=== PATIENT | male | born 1935 | race Caucasian/White ===

== ENCOUNTER → 2017-07-12 | Day surgery (SDC) | payer OTHER ==
[2017-07-09 13:41] VITALS: Ht 166.4 cm; Wt 100.0 kg
[~2017-07-12] VITALS: Ht 166.4 cm; Wt 100.0 kg
[~2017-07-12] MED LIST: 500ML BSSPLUS 0.5ML EPI1:1000 IRRIG ONE; ACETAMINOPHEN 325 MG TAB PO PRN; ASPI81TA28 PO; ATROPINE SULFATE 0.1 MG/ML 5ML SYR IV PRN; BSS FLUSH ONE; BUPIVACAINE HCL 0.75% 10 ML AMP/VIAL ONE; CALC0.5C2 PO; CEFAZOLIN SOD 1 GM VIAL ONE; CHOL2000 PO; DEXAMETHASONE SOD INJ 4 MG/ML VIAL ONE; DONE1TAB26 PO; EpHEDrine SULFATE INJ 50 MG/ML AMP IV PRN; EpINEphrine INJ 1MG/ML AMP 1 MG/ML AMP ONE; FENTANYL CITRATE INJ 50 MCG/1 ML 2 ML VIAL IV PRN; FENTANYL CITRATE INJ 50 MCG/1 ML 2 ML VIAL ONE; FRS/40 PO; HYALURONIDASE HUMAN 150 UNIT/ML INJ ONE; INDOCYANINE GREEN 25 MG/10 ML ONE; INSDGIPEN SC; ISOS60TA25 PO; LACTATED RINGER'S 1000ML 500 ML IV SCH; LEVO100T PO; LIDOCAINE HCL 2% 2 ML VIAL (20MG/ML) ONE; LISI20TA3 PO; METO50TA7 PO; NEOMYCIN/POLYMYX/DEXAMETH OP OINT PER APP CHARGE ONE; NVLG SC; OCUCOAT 1 ML SOLN IO ONE; ONDANSETRON INJ 2 MG/ML 2 ML VIAL IV PRN; PATIENT'S ALLERGY INFO NEEDS ENTERED SCH; PHENYLEPHRINE HCL 10% OP SOLN PER DROP CHARGE ONE; PHENYLEPHRINE HCL 2.5% OP SOLN PER DROP CHARGE OPL SCH; POVIDONE-IODINE OP SOLN (SURGERY CNTR CHARGING ONLY) ONE; PRIM50TA29 PO; PROPARACAINE 0.5% OP SOLN PER DROP CHARGE OPL SCH; PROPOFOL IV EMULSION 10 MG/ML 20 ML VIAL IV ONE; ROSU20TA PO; TIMOLOL MALEATE 0.5% OP SOLN PER DROP CHARGE ONE; TRIAMCINOLONE ACETONIDE OPHTH 40 MG/ML VIAL STERILE IO ONE; TROPICAMIDE 1% OP SOLN PER DROP CHARGE OPL SCH
[2017-07-12] MEDS: PHENYLEPHRINE HCL 2.5% OP SOLN PER DROP CHARGE OPL SCH ×2 (10:23→10:28)
[2017-07-12] MEDS: TROPICAMIDE 1% OP SOLN PER DROP CHARGE OPL SCH ×2 (10:24→10:29)
--- NOTE | 2017-07-12 10:41 | History & Physical Bridge - SC ---
H&P Re-Evaluation Bridge Note: Pt has a vitreous hemorrhage in the left eye and is having vitrectomy left eye. I have examined the patient, reviewed the History & Physical and in the interval since the performance of the History & Physical I have noted the following changes of clinical significance: No changes noted
--- NOTE | 2017-07-12 11:54 | [facility] Post Operative Brief Note ---
Immediate Operative Summary Operative Date Jul 12, 2017. Pre-Operative Diagnosis Left Eye Vitreous Hemorrhage Post-Operative Diagnosis same as preop Procedure(s) Performed Left Eye 23 Gauge Vitrectomy, Endolaser Surgeon Dr. Taylor Lining Repairer Surgeon(s) none Estimated Blood Loss None Findings Consistent with Post-Op Diagnosis Specimens none Anesthesia Type MAC
[2017-07-12 12:00] VITALS: TEMP 36.2
--- NOTE | 2017-07-12 12:00 | [facility] Operative Report ---
Operative Report Date of Service Jul 12, 2017. Operative Report PREOPERATIVE DIAGNOSIS: Vitreous hemorrhage, proliferative diabetic retinopathy , left eye. POSTOPERATIVE DIAGNOSIS: same. PROCEDURE: 1. Pars plana vitrectomy, 23 gauge. 2. Panretinal photocoagulation with endolaser. All to the left eye. CPT CODE: 04054 SURGEON: Calvin Taylor D.O. COMPLICATIONS: None. ESTIMATED BLOOD LOSS: None. SPECIMENS: None. ANESTHESIA: Retrobulbar block and MAC INDICATIONS FOR PROCEDURE: Surgery is indicated to decrease risk of vision loss and potentially improve vision. CONSENT: The risks, benefits and alternatives were discussed with the patient including but not limited to decreased visual acuity, failure to achieve desired results, loss of the eye, infection, pain, glaucoma, lens changes, retinal tears, retinal detachment, the need for more procedures, drooping of the eyelid, blindness, and double vision. The patient is aware of risks and consents to the surgery. Consent is signed and on the chart. OPERATION AND FINDINGS: The patient was brought to the operating room where the patient was identified by name, date, and medical record number. The surgical site was confirmed with the informed written consent. The patient was sedated by the anesthesiology team after which a 50:50 mixture of 2% lidocaine and 0.75% bupivacaine with hyaluronidase was administered in a standard retrobulbar fashion. A total of 4 ml was administered without difficulty. The patient was then prepped and draped in the usual sterile manner for retinal surgery. A wire lid speculum was placed and an Sudhir 23-gauge trocar cannula system was employed. The inferior temporal trocar cannula was first placed in an angled fashion 3.75mm posterior to the surgical limbus and the infusion cannula was inserted into this cannula after which the intravitreal position was verified prior to turning the infusion on. Two more trocar cannulas were then inserted in an angled fashion, one in the superior temporal, and one in the superior nasal quadrant both 3.75mm posterior to the surgical limbus. A light pipe and vitrector were then introduced into the eye and the BIOM wide angle viewing system was brought into place. Posterior inspection revealed a dense vitreous hemorrhage. This took a long time to clear but once it was mostly removed it was noted that there was neovascularization on the optic nerve and scattered diabetic retinopathy. Endolaser was used to perform morales retinal photocoagulation in the standard fashion and then intraocular cautery was used to cauterize the neovascularization from the optic nerve being careful not to damage the nerve itself. At this point scleral depression was performed for 360 degrees and no retinal tears or detachments were noted. The trocar cannulas were then removed and found to be water tight. The intraocular pressure was found to be within normal limits by palpation and subconjunctival injections of Kefzol and dexamethasone were administered inferiorly and superiorly. The wire lid speculum was removed. Maxitrol was applied to the surface of the eye. A light patch and shield were taped over the surface of the eye and the patient left the Operating Room in stable condition having tolerated the procedure well. DISPOSITION: The patient has an appointment the following morning in the Ophthalmology Clinic. The patient is to call immediately if there are any problems overnight. I attest to the content of the Intraoperative Record and any orders documented therein. Any exceptions are noted below.
--- NOTE | 2017-07-12 12:01 | Discharge Instructions-SurgCtr ---
Discharge Instructions Date of Service Jul 12, 2017. Visit Reason for Visit: Left Eye Vitreous Hemorrhage Discharge Discharge Diagnosis / Problem: same Discharge Goals Goal(s): Improve function Activity Recommendations Activity Limitations: per Instructions/Follow-up section Anesthesia . Post Anesthesia Instructions: If you have had General Anesthesia or IV Sedation: * Do not drive today. * Resume driving when surgeon permits. * Do not make important decisions or sign legal documents today. * Call surgeon for: 1. Temperature elevations greater than 101 degrees F. 2. Uncontrollable pain. 3. Excessive bleeding. 4. Persistent nausea and vomiting. 5. Medication intolerance (nausea, vomiting or rash). * For nausea and vomiting use only clear liquids such as: tea, soda, bouillon until nausea subsides, then gradually increase diet as tolerated. * If you have any concerns or questions, call your surgeon's office. If physician is unavailable and it is an emergency, call 911 or go to the nearest emergency room. . Instructions / Follow-Up Instructions / Follow-Up * May take Tylenol if needed for discomfort. * Do NOT remove eye shield. * NO straining, heavy lifting (>15 pounds) or bending below waist. * Avoid getting water or soap directly into operative eye. * Do NOT rub eye. If you experience increasing eye pain not relieved by medication, please contact us immediately at [phone]. If you are unable to reach someone at the above number, call [phone] and ask to speak with the EYE DOCTOR TICKET PULLER. Inform them that you are a Dr. Taylor patient who had recent surgery. Diet Recommendations Home Diet: resume previous diet Procedures Procedures Performed: Left Eye 23 Gauge Vitrectomy, Endolaser Pending Studies Studies pending at discharge: no Medical Emergencies . Who to Call and When: Medical Emergencies: If at any time you feel your situation is an emergency, please call 911 immediately. . Non-Emergent Contact Non-Emergency issues call your: Manager Sql . . "Provider Documentation" section prepared by Calvin Taylor. .
--- NOTE | 2017-07-12 12:18 | Anesthesia Progress Nt - [facility] ---
Anesthesia Post Op Note Date & Time Jul 12, 2017 at 12:18 Vital Signs Pain Intensity: 0 Vital Signs Past 12 Hours Date Time Temp Pulse Resp B/P (MAP) Pulse Ox O2 Delivery O2 Flow Rate FiO2 07/12/17 12:00 36.2 63 18 138/76 (96) 96 Room Air 07/12/17 10:13 36.3 75 24 163/82 (109) 95 Room Air Notes Mental Status: alert / awake / arousable, participated in evaluation Pt Amnestic to Procedure: Yes Nausea / Vomiting: adequately controlled Pain: adequately controlled Airway Patency, RR, SpO2: stable & adequate BP & HR: stable & adequate Hydration State: stable & adequate Anesthetic Complications: no major complications apparent
[2017-07-12 12:20] VITALS: BP 154/62; PULSE 75; O2SAT 95
== END | disposition home or self-care (01) ==
LOC: X.SURG 09:24
PROVIDERS: ATTEND Ophthalmology
DX: E11.3592 Type 2 diabetes mellitus with proliferative diabetic retinopathy without macular edema, left eye (principal); H43.12 Vitreous hemorrhage, left eye; I25.10 Atherosclerotic heart disease of native coronary artery without angina pectoris; I12.9 Hypertensive chronic kidney disease with stage 1 through stage 4 chronic kidney disease, or unspecified chronic kidney disease; N18.3 Chronic kidney disease, stage 3 (moderate); G47.33 Obstructive sleep apnea (adult) (pediatric); E11.9 Type 2 diabetes mellitus without complications; E03.9 Hypothyroidism, unspecified; E66.8 Other obesity; E78.5 Hyperlipidemia, unspecified; J44.9 Chronic obstructive pulmonary disease, unspecified; Z79.82 Long term (current) use of aspirin; Z99.81 Dependence on supplemental oxygen; Z87.891 Personal history of nicotine dependence; Z99.89 Dependence on other enabling machines and devices

== ENCOUNTER 2019-12-20 17:18 | Inpatient (IN) ==
--- OUTSIDE RECORDS SUMMARY | 2019-12-20 17:21 | External Medical Summary | Continuity of Care Document ---
:1935 Author Name Vernon Centeno, Provider Address Unavailable Unavailable , Care Team Providers Name Role Phone Unavailable Unavailable Unavailable SARAY MATTSON (HALLIE) Unavailable Unavailable Problems Active medical history not documented Allergies and Adverse Reactions No Known Drug Allergies (Allergy) Medications Lantus 100 UNIT/ML Subcutaneous Solution , M.D. Refills: 0 NovoLOG Mix 70/30 (70-30) 100 UNIT/ML Subcutaneous Suspensio n , M.D. Refills: 0 Glucophage TABS , M.D. Refills: 0 Crestor 10 MG Oral Tablet , M.D. Refills: 0 Synthroid 50 MCG Oral Tablet , M.D. Refills: 0 Metoprolol Tartrate 25 MG Oral Tablet , M.D. Refills: 0 hydroCHLOROthiazide 12.5 MG Oral Tablet , M.D. Refills: 0 Lisinopril 20 MG Oral Tablet , M.D. Refills: 0 Vitamin B-12 TABS , M.D. Refills: 0 Vitamin D3 25 MCG (1000 UT) Oral Capsule , M.D. Refills: 0 Fish Oil 1000 MG Oral Capsule , M.D. Refills: 0 Aspirin 81 MG TABS , M.D. Refills: 0 Advil 200 MG Oral Capsule , M.D. Refills: 0 Primidone 50 MG Oral Tablet , M.D. Refills: 0 Procedures Procedures not documented Immunizations Immunizations not documented Plan of Treatment Planned Observations Planned Goals not documented Results No Known Results Results not documented
[2019-12-20 17:43] LABS: Basophils # (auto) 0.01 K/uL (0-0.2); Basophils % (auto) 0.2 %; Eosinophils # (auto) 0.08 K/uL (0-0.5); Eosinophils % (auto) 1.3 %; Hematocrit (blood only) 47.4 % (42-52); Hemoglobin 15.9 g/dL (14.0-18.0); Immature Granulocytes # (auto) 0.01 K/uL (0.00-0.02); Immature Granulocytes % (auto) 0.2 %; Lymphocytes # (auto) 0.95 K/uL (1.2-3.4); Lymphocytes % (auto) 15.1 %; Mean Corpuscular Hemoglobin 32.8 pg (25-34); Mean Corpuscular Hgb Conc 33.5 g/dL (32-36); Mean Corpuscular Volume 97.7 fL (80-100); Mean Platelet Volume 11.8 fL (7.4-10.4); Monocytes # (auto) 0.57 K/uL (0.11-0.59); Monocytes % (auto) 9.1 %; Neutrophils # (auto) 4.67 K/uL (1.4-6.5); Neutrophils % (auto) 74.1 %; Nucleated RBC # (auto) 0.03 K/uL (0-0); Nucleated RBC % (auto) 0.5 %; Platelet Count 114 K/uL (130-400); RDW Coefficient of Variation 17.4 % (11.5-14.5); RDW Standard Deviation 60.5 fL (36.4-46.3); Red Blood Count 4.85 M/uL (4.7-6.1); White Blood Count 6.29 K/uL (4.8-10.8)
[2019-12-20 17:51] LABS: Albumin Level 2.9 gm/dl (3.4-5.0); BUN Creatinine Ratio 18.2 (10-20); Calcium 6.7 mg/dl (8.5-10.1); Creatinine Clr Calc Pharmacy 24.7 ml/min; Est GFR (African American) 27.6; Est GFR (Non-African American) 23.8; Magnesium 2.4 mg/dl (1.8-2.4); Potassium 4.4 mmol/L (3.5-5.1)
[2019-12-20 17:54] LABS: INR 1.2 (0.9-1.1); Prothrombin Time 12.1 Seconds (9.0-12.0)
[2019-12-20 18:02] LABS: Albumin Globulin Ratio 0.8 (0.9-2); Bilirubin,Total 0.6 mg/dl (0.2-1); Globulin 3.6 gm/dl (2.5-4.0); Total Protein 6.5 gm/dl (6.4-8.2); Troponin I 0.102 ng/ml (0-0.045)
--- NOTE | 2019-12-20 18:02 | Emergency Department Note ---
Impression & Plan Pulmonary edema, Edema, peripheral, Hypoxia ED Provider Note NAME: RAIN GARG AGE: 84 SEX: M : 1935 ARRIVES VIA: Ambulance INFORMANT: Patient, ED PROVIDER(S): Calvin Pardo DO CHIEF COMPLAINT: Shortness of breath. HPI: The patient is an 84-year-old male who presented to the emergency department by ambulance for an evaluation of shortness of breath. The patient has been noticing lower extremity swelling and weight gain. The patient has noticed significant shortness of breath especially over the last few weeks. He denies having any chest pain. He does complain of shortness of breath upon lying flat as well as exertion. The patient does have supplemental oxygen and normally has 3 L of nasal cannula. The patient increase his oxygen recently and his oxygen was also increased prior to arrival by prehospital personnel. He states this is somewhat improved his symptoms. The patient denies having any fevers but notes lower extremity erythema. He also has a wound dressing to his left lower extremity. The patient has not been seen by his primary care physician recently. ROS: See above HPI for pertinent positives & negatives. A total of 10 systems reviewed and were otherwise negative. PAST MEDICAL HISTORY: See Below PAST SURGICAL HISTORY: See Below FAMILY HISTORY: See Below SOCIAL HISTORY: See Below HOME MEDICATIONS: See Below ALLERGIES: See Below VITALS: See Below PHYSICAL EXAMINATION: GENERAL: Patient is awake alert in no acute distress patient is resting comfor tably and showing no signs of anxiety EYES: The conjunctivae are clear. The pupils are round and reactive. EARS, NOSE, MOUTH AND THROAT: The nose is without any evidence of any deformity. NECK: The neck is nontender and supple. RESPIRATORY: Shallow respirations were noted. Diminished breath sounds are noted throughout with rales in both upper lung flor. There was significant conversational dyspnea noted. CARDIOVASCULAR: Ectopy was noted to auscultation. There was no definite murmur. GASTROINTESTINAL: The abdomen is soft. Abdomen is nontender. MUSCULOSKELETAL/EXTREMITIES: There is no evidence of gross deformity full range of motion is noted in the hips and shoulders. SKIN: There is bilateral lower extremity edema noted. There is significant erythema and venous stasis changes noted. There is a small ulceration to the anterior lower leg. The wound dressing is in place. NEUROLOGIC: Patient is awake alert and oriented x3. MEDICAL DECISION MAKING: The patient is an 84-year-old male who presented to the emergency department for an evaluation of shortness of breath. The patient has a history of diabetes as well as volume overload. He normally wears oxygen and has had to increase his oxygen over the last few days because of shortness of breath. He has very significant lower extremity edema as well as low blood pressure. The patient was treated with supplemental oxygen. He was reevaluated multiple times. The patient was found to have low blood pressure so this along with an elevated creatinine precluded Lasix at this time and is oxygen saturation on supplemental oxygen was acceptable. I discussed his case with the on-call [facility]ist. They have agreed to evaluate the patient in the emergency department for further management and disposition. The patient may require further work-up to evaluate the cause of his shortness of breath but he was significantly improved. Triage Nursing notes reviewed. Prior medical records reviewed Vital Signs: reviewed and remarkable for hypoxia on room air. Differential diagnosis: Reactive airway disease, pneumonia, pneumothorax, COPD, CHF, infections, cardiac ischemia, pulmonary embolism, musculoskeletal, gastrointestinal, as well as other pathologies. ER treatment provided: See below Diagnostics interpreted by me: ECG: EKG was obtained in the emergency department. My interpretation is sinus rhythm at 81 bpm. There was a first-degree AV block noted. Frequent PVCs were noted. Right bundle branch block pattern was noted. Diffuse ST and T wave abnormalities were noted. No previous tracing was available for comparison. Cardiac Monitoring: An order was placed for continuous cardiac monitoring. The monitor shows a rate of 85 with sinus rhythm. Laboratory studies: As stated above and show below. Imaging studies: See below Consultation(s): 1924: I discussed this case with Dr. Payne who is on-call for the [facility] group. He will evaluate the patient in the emergency department for further management and disposition. Past Med/Surg History Medical History (Updated 12/20/19 @ 21:43 by Calvin Pardo DO) CHF (congestive heart failure) Hypothyroidism (acquired) Insulin dependent diabetes mellitus Social History Feels Safe at Home: Yes Smoking Status: Former smoker Allergies Allergies Allergy/AdvReac Type Severity Reaction Status Date / Time yellow dye Allergy Unknown RASH Verified 12/20/19 19:48 Home Meds Home Medications Medication Instructions Recorded Confirmed aspirin 81 mg PO QPM 12/20/19 12/20/19 calcitriol 0.5 mcg PO QAM 12/20/19 12/20/19 calcium carb-D3-mag ox-zinc ox 1 tab PO QAM 12/20/19 12/20/19 [Arslan Mag Zinc Plus D3] calcium carbonate-vitamin D3 2 cap PO QAM 12/20/19 12/20/19 [Calcium 600 with Vitamin D3] cholecalciferol (vitamin D3) 25 mcg PO QAM 12/20/19 12/20/19 [Vitamin D3] cyanocobalamin (vitamin B-12) 1,000 mcg PO QAM 12/20/19 12/20/19 [Vitamin B-12] donepezil 10 mg PO HS 12/20/19 12/20/19 furosemide 40 mg PO BID 12/20/19 12/20/19 insulin aspart U-100 [Novolog See Rx Instructions .ROUTE .COMPLEX 12/20/19 12/20/19 U-100 Insulin aspart] insulin glargine [Lantus U-100 8 unit SUBCUT 12/20/19 12/20/19 Insulin] isosorbide mononitrate 60 mg PO QPM 12/20/19 12/20/19 levothyroxine See Rx Instructions .ROUTE .COMPLEX 12/20/19 12/20/19 lisinopril 5 mg PO QPM 12/20/19 12/20/19 metoprolol succinate 25 mg PO HS 12/20/19 12/20/19 omega-3 fatty acids-fish oil [Fish 1 cap PO QAM 12/20/19 12/20/19 Oil] primidone 50 mg PO BID 12/20/19 12/20/19 rosuvastatin 20 mg PO HS 12/20/19 12/20/19 Results & Data (ED) Vital Signs Vital Signs - 24 hr 12/20/19 17:32 12/20/19 17:52 12/20/19 18:30 Temperature 37.1 C Temperature Source Oral Pulse Rate 83 75 Pulse Rate [Right Finger] Pulse Rate from SpO2 Sensor 60 Pulse Rhythm [Right Finger] Pulse Strength [Right Finger] Respiratory Rate 23 21 Respiratory Effort / Characteristics Non-Labored Spontaneous Short of Breath Respiratory Depth Normal Respiratory Pattern Regular Blood Pressure 121/72 98/65 L Blood Pressure [Right Arm] Blood Pressure Mean 88 84 Blood Pressure Mean [Right Arm] Blood Pressure Position Sitting Pulse Oximetry 94 95 100 Oxygen Delivery Method Nasal Cannula Nasal Cannula Oxygen Flow Rate 5 5 Sepsis Recent Fever Within 48 Hours No Sepsis New/Unexplained Change in Mental Status No Sepsis Action Taken by Nursing No Action Required 12/20/19 19:00 12/20/19 19:01 12/20/19 19:09 Temperature Temperature Source Pulse Rate 75 72 74 Pulse Rate [Right Finger] Pulse Rate from SpO2 Sensor Pulse Rhythm [Right Finger] Pulse Strength [Right Finger] Respiratory Rate 21 22 20 Respiratory Effort / Characteristics Respiratory Depth Respiratory Pattern Blood Pressure 91/55 L 108/66 Blood Pressure [Right Arm] Blood Pressure Mean 58 77 Blood Pressure Mean [Right Arm] Blood Pressure Position Pulse Oximetry Oxygen Delivery Method Oxygen Flow Rate Sepsis Recent Fever Within 48 Hours Sepsis New/Unexplained Change in Mental Status Sepsis Action Taken by Nursing 12/20/19 19:10 12/20/19 19:30 12/20/19 19:31 Temperature Temperature Source Pulse Rate 73 73 Pulse Rate [Right Finger] 73 Pulse Rate from SpO2 Sensor Pulse Rhythm [Right Finger] Irregular Pulse Strength [Right Finger] Normal Respiratory Rate 21 18 23 Respiratory Effort / Characteristics Respiratory Depth Respiratory Pattern Blood Pressure 100/68 Blood Pressure [Right Arm] 108/66 Blood Pressure Mean 75 Blood Pressure Mean [Right Arm] 80 Blood Pressure Position Pulse Oximetry 97 Oxygen Delivery Method Nasal Cannula Oxygen Flow Rate 4 Sepsis Recent Fever Within 48 Hours Sepsis New/Unexplained Change in Mental Status Sepsis Action Taken by Nursing 12/20/19 20:00 12/20/19 20:02 12/20/19 20:30 Temperature Temperature Source Pulse Rate 85 82 64 Pulse Rate [Right Finger] Pulse Rate from SpO2 Sensor Pulse Rhythm [Right Finger] Pulse Strength [Right Finger] Respiratory Rate 24 24 21 Respiratory Effort / Characteristics Respiratory Depth Respiratory Pattern Blood Pressure 155/84 H Blood Pressure [Right Arm] Blood Pressure Mean 115 Blood Pressure Mean [Right Arm] Blood Pressure Position Pulse Oximetry Oxygen Delivery Method Oxygen Flow Rate Sepsis Recent Fever Within 48 Hours Sepsis New/Unexplained Change in Mental Status Sepsis Action Taken by Nursing 12/20/19 20:31 12/20/19 20:32 12/20/19 21:00 Temperature Temperature Source Pulse Rate 70 70 74 Pulse Rate [Right Finger] Pulse Rate from SpO2 Sensor Pulse Rhythm [Right Finger] Pulse Strength [Right Finger] Respiratory Rate 21 21 23 Respiratory Effort / Characteristics Respiratory Depth Respiratory Pattern Blood Pressure 112/78 Blood Pressure [Right Arm] Blood Pressure Mean 87 Blood Pressure Mean [Right Arm] Blood Pressure Position Pulse Oximetry 92 Oxygen Delivery Method Oxygen Flow Rate Sepsis Recent Fever Within 48 Hours Sepsis New/Unexplained Change in Mental Status Sepsis Action Taken by Nursing 12/20/19 21:01 Temperature Temperature Source Pulse Rate 73 Pulse Rate [Right Finger] Pulse Rate from SpO2 Sensor 74 Pulse Rhythm [Right Finger] Pulse Strength [Right Finger] Respiratory Rate 22 Respiratory Effort / Characteristics Respiratory Depth Respiratory Pattern Blood Pressure 147/89 H Blood Pressure [Right Arm] Blood Pressure Mean 97 Blood Pressure Mean [Right Arm] Blood Pressure Position Pulse Oximetry 94 Oxygen Delivery Method Oxygen Flow Rate Sepsis Recent Fever Within 48 Hours Sepsis New/Unexplained Change in Mental Status Sepsis Action Taken by [facility] Medications Current Medication List: was personally reviewed by me Laboratory Data Attestation: I reviewed the patient's lab results. Result diagrams: 12/20/19 16:53 12/20/19 16:53 Lab Results 12/20/19 12/20/19 12/20/19 Range/Units 16:53 16:53 16:53 WBC 6.29 (4.8-10.8) K/uL RBC 4.85 (4.7-6.1) M/uL Hgb 15.9 (14.0-18.0) g/dL Hct 47.4 (42-52) % MCV 97.7 (80-100) fL MCH 32.8 (25-34) pg MCHC 33.5 (32-36) g/dL RDW Std Deviation 60.5 H (36.4-46.3) fL RDW Coeff of Ricky 17.4 H (11.5-14.5) % Plt Count 114 L (130-400) K/uL MPV 11.8 H (7.4-10.4) fL Immature Gran % (Auto) 0.2 % Neut % (Auto) 74.1 % Lymph % (Auto) 15.1 % [place] % (Auto) 9.1 % Eos % (Auto) 1.3 % Baso % (Auto) 0.2 % Neut # (Auto) 4.67 (1.4-6.5) K/uL Lymph # (Auto) 0.95 L (1.2-3.4) K/uL [place] # (Auto) 0.57 (0.11-0.59) K/uL Eos # (Auto) 0.08 (0-0.5) K/uL Baso # (Auto) 0.01 (0-0.2) K/uL Immature Gran # (Auto) 0.01 (0.00-0.02) K/uL Absolute Nucleated RBC 0.03 H (0-0) K/uL Nucleated RBC % (auto) 0.5 % PT 12.1 H (9.0-12.0) Seconds INR 1.2 H (0.9-1.1) APTT 29.0 (21.0-31.0) Seconds PTT Ratio 1.0 VBG pH (7.36-7.41) VBG pCO2 (38-50) mmHg VBG pO2 mmHg VBG HCO3 mmol/L VBG O2 Saturation % VBG Base Excess mEq/L Barometric Pressure mm/Hg Sodium 140 (136-145) mmol/L Potassium 4.4 (3.5-5.1) mmol/L Chloride 102 (98-107) mmol/L Carbon Dioxide 28 (21-32) mmol/L Anion Gap 10.0 (3-11) BUN 43 H (7-18) mg/dl Creatinine 2.38 H (0.6-1.4) mg/dl Est Cr Clr Drug Dosing 24.7 ml/min Est GFR ( Amer) 27.6 Est GFR (Non-Af Amer) 23.8 BUN/Creatinine Ratio 18.2 (10-20) Glucose 160 H (70-99) mg/dl Calcium 6.7 L (8.5-10.1) mg/dl Magnesium 2.4 (1.8-2.4) mg/dl Total Bilirubin 0.6 (0.2-1) mg/dl AST 37 (15-37) U/L ALT 23 (12-78) U/L Alkaline Phosphatase 95 (45-117) U/L Troponin I 0.102 H* (0-0.045) ng/ml NT-Pro-B Natriuret Pep 79653 H (0-1800) pg/ml Total Protein 6.5 (6.4-8.2) gm/dl Albumin 2.9 L (3.4-5.0) gm/dl Globulin 3.6 (2.5-4.0) gm/dl Albumin/Globulin Ratio 0.8 L (0.9-2) Urine Color Urine Appearance (Clear) Urine pH (4.5-7.5) Ur Specific Bowie (1.000-1.030) Urine Protein (Negative) Urine Glucose (UA) (Negative) Urine Ketones (Negative) Urine Blood (Negative) Urine Nitrite (Negative) Urine Bilirubin (Negative) Urine Urobilinogen (Negative) Ur Leukocyte Esterase (Negative) Urine WBC (Auto) (0-5) /hpf Urine RBC (Auto) (0-4) /hpf U Hyaline Cast (Auto) (0-5) /lpf U Epithel Cells (Auto) (0-5) /lpf Urine Bacteria (Auto) (Negative) 12/20/19 12/20/19 Range/Units 17:52 18:00 WBC (4.8-10.8) K/uL RBC (4.7-6.1) M/uL Hgb (14.0-18.0) g/dL Hct (42-52) % MCV (80-100) fL MCH (25-34) pg MCHC (32-36) g/dL RDW Std Deviation (36.4-46.3) fL RDW Coeff of Ricky (11.5-14.5) % Plt Count (130-400) K/uL MPV (7.4-10.4) fL Immature Gran % (Auto) % Neut % (Auto) % Lymph % (Auto) % [place] % (Auto) % Eos % (Auto) % Baso % (Auto) % Neut # (Auto) (1.4-6.5) K/uL Lymph # (Auto) (1.2-3.4) K/uL [place] # (Auto) (0.11-0.59) K/uL Eos # (Auto) (0-0.5) K/uL Baso # (Auto) (0-0.2) K/uL Immature Gran # (Auto) (0.00-0.02) K/uL Absolute Nucleated RBC (0-0) K/uL Nucleated RBC % (auto) % PT (9.0-12.0) Seconds INR (0.9-1.1) APTT (21.0-31.0) Seconds PTT Ratio VBG pH 7.33 L (7.36-7.41) VBG pCO2 59 H (38-50) mmHg VBG pO2 20 mmHg VBG HCO3 31 mmol/L VBG O2 Saturation < 60.0 % VBG Base Excess 2.9 mEq/L Barometric Pressure 729.9 mm/Hg Sodium (136-145) mmol/L Potassium (3.5-5.1) mmol/L Chloride (98-107) mmol/L Carbon Dioxide (21-32) mmol/L Anion Gap (3-11) BUN (7-18) mg/dl Creatinine (0.6-1.4) mg/dl Est Cr Clr Drug Dosing ml/min Est GFR ( Amer) Est GFR (Non-Af Amer) BUN/Creatinine Ratio (10-20) Glucose (70-99) mg/dl Calcium (8.5-10.1) mg/dl Magnesium (1.8-2.4) mg/dl Total Bilirubin (0.2-1) mg/dl AST (15-37) U/L ALT (12-78) U/L Alkaline Phosphatase (45-117) U/L Troponin I (0-0.045) ng/ml NT-Pro-B Natriuret Pep (0-1800) pg/ml Total Protein (6.4-8.2) gm/dl Albumin (3.4-5.0) gm/dl Globulin (2.5-4.0) gm/dl Albumin/Globulin Ratio (0.9-2) Urine Color Yellow Urine Appearance Clear (Clear) Urine pH 5.0 (4.5-7.5) Ur Specific Bowie 1.017 (1.000-1.030) Urine Protein Trace H (Negative) Urine Glucose (UA) Negative (Negative) Urine Ketones Negative (Negative) Urine Blood Negative (Negative) Urine Nitrite Negative (Negative) Urine Bilirubin Negative (Negative) Urine Urobilinogen Negative (Negative) Ur Leukocyte Esterase Negative (Negative) Urine WBC (Auto) 1-5 (0-5) /hpf Urine RBC (Auto) 0-4 (0-4) /hpf U Hyaline Cast (Auto) 1-5 (0-5) /lpf U Epithel Cells (Auto) >30 H (0-5) /lpf Urine Bacteria (Auto) Negative (Negative) Imaging Data Radiologist's Impression: XR chest 1V portable HISTORY: 84 years-old Male Dyspnea acute shortness of breath COMPARISON: None TECHNIQUE: Portable AP view of the chest FINDINGS: Cardiac silhouette is enlarged. Pulmonary vascular congestion. Small bilateral pleural effusions with hazy bibasilar densities. Calcified plaque the thoracic aortic arch. No pneumothorax. There is a dense 1.8 cm nodular opacity projecting over the left upper lung. The patient is rotated towards the left. Degenerative changes of the shoulders and spine. IMPRESSION: 1. Cardiomegaly with pulmonary vascular congestion. 2. Small pleural effusions with bibasilar opacities suggestive of atelectasis. Pneumonitis could appear similarly. 3. 1.8 cm nodular opacity projects over the left upper lung. This is likely associated with the anterior left second rib and may reflect degenerative scler osis versus bone island. A calcified granuloma also considered. ACT 112: Negative or not required by law. The above report was generated using voice recognition software. It may contain grammatical, syntax or spelling errors. Electronically signed by: Andrew Peter M.D. 12/20/2019 7:21 PM Dictated: 12/20/191918 Transcribed: 12/20/191918 Blood Pressure Blood Pressure Findings: Normal blood pressure Discharge Plan Visit Data Chief Complaint: Shortness of Breath/Dyspnea Stated Complaint: SOB ED Provider: Calvin Pardo Discharge Problem: Pulmonary edema, Edema, peripheral, Hypoxia Patient Disposition: Being Evaluated by Hospitalist Condition: Good Forms Stand Alone Forms: My [facility] Prescriptions Prescriptions: No Action furosemide 40 mg tablet 40 mg PO BID RF: 0 primidone 50 mg tablet 50 mg PO BID RF: 0 donepezil 10 mg tablet 10 mg PO HS RF: 0 aspirin 81 mg Tablet,Delayed Release (Dr/Ec) 81 mg PO QPM RF: 0 isosorbide mononitrate 60 mg tablet extended release 24 hr 60 mg PO QPM RF: 0 calcitriol 0.5 mcg capsule 0.5 mcg PO QAM RF: 0 lisinopril 5 mg tablet 5 mg PO QPM RF: 0 metoprolol succinate 25 mg tablet extended release 24 hr 25 mg PO HS RF: 0 levothyroxine 112 mcg tablet See Rx Instructions .ROUTE .COMPLEX RF: 0 rosuvastatin 20 mg tablet 20 mg PO HS RF: 0 cyanocobalamin (vitamin B-12) [Vitamin B-12] 1,000 mcg Tablet 1,000 mcg PO QAM RF: 0 cholecalciferol (vitamin D3) [Vitamin D3] 25 mcg (1,000 unit) Capsule 25 mcg PO QAM RF: 0 omega-3 fatty acids-fish oil [Fish Oil] 360-1,200 mg Capsule 1 cap PO QAM RF: 0 calcium carbonate-vitamin D3 [Calcium 600 with Vitamin D3] 600 mg(1,500mg) - 500 unit Capsule 2 cap PO QAM RF: 0 Arslan Mag Zinc Plus D3 333 mg-133 unit -133 mg-5 mg Tablet 1 tab PO QAM RF: 0 Lantus U-100 Insulin 100 unit/mL solution 8 unit SUBCUT HS RF: 0 insulin aspart U-100 [Novolog U-100 Insulin aspart] 100 unit/mL solution See Rx Instructions .ROUTE .COMPLEX RF: 0 Referrals Referrals: Franky Bradley [Primary Care Provider] -
[2019-12-20 18:04] LABS: Base Excess VBG 2.9 mEq/L; HCO3 VBG 31 mmol/L; PCO2 VBG 59 mmHg (38-50); PO2 VBG 20 mmHg; pH VBG 7.33 (7.36-7.41)
[2019-12-20 18:05] LABS: Oxygen Saturation VBG < 60.0 %
[2019-12-20 18:18] LABS: Appearance Urine Clear (Clear); Bacteria Urine Automated Negative (Negative); Bilirubin Urine Negative (Negative); Blood Urine Negative (Negative); Color Urine Yellow; Epithelial Cell Urine Auto >30 /lpf (0-5); Glucose Urine UA Negative (Negative); Ketones Urine Negative (Negative); Leukocyte Esterase Urine Negative (Negative); Nitrite Urine Negative (Negative); Protein Urine Trace (Negative); RBC Urine Automated 0-4 /hpf (0-4); Specific Gravity Urine 1.017 (1.000-1.030); Urobilinogen Urine Negative (Negative)
--- NOTE | 2019-12-20 19:22 | XRay Report ---
XR chest 1V portable HISTORY: 84 years-old Male Dyspnea acute shortness of breath COMPARISON: None TECHNIQUE: Portable AP view of the chest FINDINGS: Cardiac silhouette is enlarged. Pulmonary vascular congestion. Small bilateral pleural effusions with hazy bibasilar densities. Calcified plaque the thoracic aortic arch. No pneumothorax. There is a den se 1.8 cm nodular opacity projecting over the left upper lung. The patient is rotated towards the lef t. Degenerative changes of the shoulders and spine. IMPRESSION: 1. Cardiomegaly with pulmonary vascular congestion. 2. Small pleural effusions with bibasilar opacities suggestive of atelectasis. Pneumonitis could appe ar similarly. 3. 1.8 cm nodular opacity projects over the left upper lung. This is likely associated with the anter ior left second rib and may reflect degenerative sclerosis versus bone island. A calcified granuloma also considered. ACT 112: Negative or not required by law. The above report was generated using voice recognition software. It may contain grammatical, syntax o r spelling errors. Electronically signed by: Andrew Peter M.D. 12/20/2019 7:21 PM
--- NOTE | 2019-12-20 21:15 | CT Scan Report ---
CT chest wo con CT DOSE: 576.48 mGy.cm CLINICAL HISTORY: 84 years-old Male with chf, left upper lung opacity. Acute shortness of breath wit h congestive heart failure TECHNIQUE: Multiaxial CT images of the chest were performed without contrast. A dose lowering techni que was utilized adhering to the principles of ALARA. COMPARISON: Chest radiograph of same day FINDINGS: Unremarkable thyroid. No adenopathy. Moderate cardiomegaly. Coronary artery calcifications. Extensive calcified plaque of the thoracic aorta and great vessels. Dilation of the pulmonary artery suggests pulmonary artery hypertension. Respiratory motion artifact limits the study. Trace left and moderate right pleural effusions. No pneumothorax. Pulmonary vascular congestion without overt pulmonary edema . Numerous noncalcified pulmonary nodules are present, most pronounced within the bilateral upper lob es measuring up to approximately 4 mm. Fissural nodule the right lung base measures 7 mm. Calcified g ranuloma of the medial right upper lobe. Consolidation and groundglass opacity dependent right lower lobe. Right diaphragmatic pleural calcifications. Central airways are patent. Small volume of abdominal ascites with mesenteric edema. Moderate diffuse body wall edema. Degenerati ve changes of the shoulders and spine. Previously questioned nodular opacity of the left upper lung l ikely correlates with overlying ribs. Demineralized appearance of the bones. 8 mm lucent focus involv es the T5 vertebral body. 10 mm lucent focus involves the T2 vertebral body. Ill-defined lucent lesio n involves the anterior cortex of the left anterior fifth rib. Additional smaller lucent foci are see n involving multiple vertebral bodies. IMPRESSION: 1. Cardiomegaly with pulmonary vascular congestion. 2. Fluid overload manifested by trace left and moderate right pleural effusions with small volume of abdominal ascites and anasarca. 3. Right lower lobe basilar consolidation suggests probable atelectasis. Pneumonia could appear simil irena. 4. Numerous bilateral solid pulmonary nodules measure up to 4 mm. Follow-up guidelines provided below . 5. Prior granulomatous disease. 6. There are several ill-defined lucent lesions involving the vertebral bodies with an additional raymond ent lesion noted involving the anterior left fifth rib. Correlation with skeletal survey radiographs recommended to evaluate for additional lesions. Primary differential considerations would include mul tiple lipoma versus lytic metastasis from unknown primary. Please refer to below summary of Fleischner criteria recommendations for follow-up of incidental CT n odules (Henrique Luevano, Guidelines for management of small pulmonary nodules detected on CT scans: A robbi tement from the Fleischner Society, Radiology 237: [phone].) SOLID NODULES Multiple nodules size: <6 mm * Low risk patients: no routine follow-up * high risk patients: optional CT at 12 months Note: newly detected indeterminate nodule in persons 35 years of age or older. * Low risk patients: minimal or absent history of smoking and/or other known risk factors * high risk patients: history of smoking or of other known risk factors (e.g. first degree relative with lung cancer, or exposure to asbestos, radon, uranium) * if a nodule up to 8 mm is partly solid or is ground glass further follow-up is required after [address] to exclude possible slow growing adenocarcinoma ([place]) ACT 112: Negative or not required by law. Electronically signed by: Andrew Peter M.D. 12/20/2019 9:14 PM
[2019-12-20] MEDS ORDERED: ONDANSETRON INJ 2 MG/ML 2 ML VIAL IV PRN (22:45)
[2019-12-20] MEDS ORDERED: NITROGLYCERIN SL 0.4 MG/TAB TAB SL PRN (22:45)
[2019-12-20] MEDS ORDERED: ACETAMINOPHEN 325 MG TAB PO PRN (22:45)
[2019-12-20] MEDS ORDERED: FUROSEMIDE 40 MG/4 ML VIAL IV STA (22:45)
[2019-12-20] MEDS ORDERED: POLYETHYLENE (MIRALAX) 17 GM PACK PO PRN (22:45)
--- NOTE | 2019-12-20 22:47 | History and Physical Report ---
DATE OF ADMISSION: 12/20/2019 CHIEF COMPLAINT: Shortness of breath and weight gain. HISTORY OF PRESENT ILLNESS: This is an 84-year-old male with past medical history significant for type 2 diabetes, COPD, history of pneumonia, history of hypertension, history of PA, history of chronic kidney disease, history of right heart failure, history of severe pulmonary hypertension, cor pulmonale, history of hypoxemia and sleep apnea treated with supplemental oxygen 3 liters all the time and CPAP at bedtime, history of ischemic cardiomyopathy with EF of 45% to 49%, history of coronary artery disease, history of asymptomatic SVT and nonsustained ventricular tachycardia, history of right bundle branch block, history of dementia. Currently the patient lives at home alone. He says his in July. His stepdaughter lives close by. He can ambulate without any support, but lately he is getting more short of breath. Going to the kitchen makes him short of breath and he is taking Lasix now 2 times daily, but he says he is not micturating much. He gained about 14 pounds in the last 5 days. He gets home health nurse once a week. He has a small superficial ulcer on the left lower extremity which was dressed by his nurse. Currently resting comfortably and hemodynamically stable. Denies any other complaints. Denies any chest pain. No cough, no fever, no chills, no sore throat. He says when he wakes up, when he takes off his CPAP machine, he has some runny nose for some time and then it stops. No earache, no headache, no dizziness, no blurred visions, double visions. No nausea, no abdominal pain. Normal bowel and bladder movements. Appetite, he says is okay. He says he does not eat excess salt. ALLERGIES: YELLOW DYE. PAST MEDICAL HISTORY: As mentioned above. PAST SURGICAL HISTORY: Cardiac stent placement, prostate surgery, removal of thyroid gland, cataract surgery, cholecystectomy. MEDICATIONS: Currently, the patient is on aspirin 81 mg p.o. q.p.m., calcitriol 0.5 mcg p.o. q.a.m., calcium carbonate-magnesium oxide-zinc oxide 1 tablet p.o. q.a.m., calcium carbonate and vitamin D 600 2 capsules p.o. a.m., vitamin D 25 mg p.o. a.m., cyanocobalamin 1000 mcg p.o. a.m., donepezil 10 mg p.o. at bedtime, furosemide 40 mg p.o. b.i.d., NovoLog as directed, Lantus 80 units at bedtime, isosorbide mononitrate 60 mg p.o. p.m., levothyroxine as directed, lisinopril 5 mg p.o. a.m., metoprolol succinate 25 mg p.o. at bedtime, omega fish oil 1 capsule p.o. a.m., tramadol 50 mg p.o. b.i.d., lovastatin 20 mg p.o. at bedtime. FAMILY HISTORY: Significant for mother had heart disorder, hypertension, thyroid disorder; maternal grandmother had thyroid disorder; paternal grandmother had diabetes. SOCIAL HISTORY: Currently living alone. Former smoker, quit in 1994, smoked half pack a day for 47 years. No alcohol use, no drug use. REVIEW OF SYSTEMS: As per HPI. Rest of the review of systems negative. PHYSICAL EXAMINATION: GENERAL: The patient is of moderate build, not in acute distress. VITAL SIGNS: Temperature 37.1, pulse 73, respiratory rate 21, blood pressure 108/66, oxygen 97% on 4 liters. HEENT: No pallor, no icterus. Pupils equal, round, and reactive to light. NECK: No JVD, no neck masses. CARDIOVASCULAR: S1, S2 heard, regular rate and rhythm, no murmur, no gallop. RESPIRATORY SYSTEM: Normal AP diameter. No accessory muscle use. No wheezing. Mild bibasilar crackles. ABDOMEN: Soft, bowel sounds present, nontender. No distention. CENTRAL NERVOUS SYSTEM: Cranial nerves II-XII grossly intact. Nonfocal. EXTREMITIES: Bilateral lower extremity erythema and chronic swelling and chronic skin changes seen. LABORATORY DATA: WBC 6.29, hemoglobin 15.9, hematocrit 47.4, platelets 114. PT 12.1, INR 1.2, APTT 29. Venous blood gases, pH of 7.33, pCO2 of 59, pO2 of 20, bicarbonate 31. Sodium 140, potassium 4.4, chloride 102, bicarbonate 28, BUN 43, creatinine 2.3, serum glucose 160, calcium 6.7, magnesium 2.4, total bilirubin 0.6, AST 37, ALT 23, alkaline phosphatase 95, troponin 1 of 0.10, BNP 13243. Urinalysis negative. IMAGING DATA: Chest x-ray, cardiomegaly with pulmonary vascular congestion, small pleural effusions with bibasilar opacity suggestive of atelectasis. A 1.8 cm nodular opacity over the left upper lung, this is likely associated with anterior left second rib and may reflect degenerative sclerosis versus bone island and calcified granuloma also considered. EKG: Sinus rhythm with first-degree AV block with PVCs at a rate of 81. Right bundle branch block. T-wave inversions in lateral leads. ASSESSMENT AND PLAN: This is an 84-year-old male who presents with shortness of breath. 1. Shortness of breath, possibly [id number] right sided heart failure and Acute on chronic systolic congestive heart failure. Blood pressure is somewhat on the lower side. also having acute kidney injury. We will give a dose of IV Lasix 40mg and follow the response, follow the labs in the a.m. Follow echocardiogram, daily weights, I's and O's. Consult cardiology in a.m. for further recommendations. 2. Lower extremity questionable cellulitis. The patient has some erythema in lower extremity, but no white count, no fever. Could be his chronic condition, but we will empirically start him on Rocephin and follow the response. We will also check Doppler to rule out deep venous thrombosis. 3. Thrombocytopenia, mild. Needs followup labs. 4. Acute kidney injury on chronic kidney disease stage III. Baseline creatinine around 1.8 to 2, presently with creatinine of 2.38. We will follow the labs on IV Lasix. 5. Hypocalcemia with corrected calcium of around 7.5. Continue home supplements. We will check vitamin D levels and also we will give a dose of IV calcium gluconate.Follow labs. 6. Mild elevation of troponin, most likely demand ischemia. We will follow serial enzymes, echocardiogram. 7. History of diabetes. Will continue home Lantus and placed on insulin sliding scale and follow the blood sugars, follow HbA1c levels. 8. Hypothyroidism. Continue Synthroid. 9. Hypertension. Continue Imdur. Continue Toprol-XL. Getting diuretics. We will hold lisinopril for acute kidney injury. 10. Mild dementia. Continue donepezil. 11. Hyperlipidemia. Continue statins. 12. Coronary artery disease status post stent. Continue his Toprol-XL, statin, and aspirin. 13. History of chronic obstructive pulmonary disease, chronic respiratory failure, on oxygen, currently not in exacerbation. LYNN. Uses CPAP at bedtime. 14. Nodular opacity in left upper lung. Will follow ct chest. 15. Deep venous thrombosis prophylaxis, heparin subQ. DISPOSITION: Closely monitor in the tele floor. Level 1 full code as per my discussion with the patient. PT and OT prior to discharge. Social service to help with discharge planning. Expect to discharge home and follow with his family doctor. ILIR
[2019-12-20] MEDS ORDERED: ISOSORBIDE MONO EXTENDED REL 60 MG TABCR PO SCH (23:00)
[2019-12-20] MEDS ORDERED: CALCIUM GLUCONATE 10% 1,000 MG in SODIUM CHLORIDE 0.9% 50 ML IV ONE (23:30)
[2019-12-20] MEDS ORDERED: FUROSEMIDE 40 MG in SYRINGE 0 ML IV ONE (23:30)
[2019-12-20] MEDS: ROSUVASTATIN CALCIUM 20 MG TAB PO SCH (23:30)
[2019-12-20] MEDS: PRIMIDONE 50 MG TAB PO SCH (23:31)
[2019-12-20] MEDS: ASPIRIN 81 MG ECTAB PO SCH (23:31)
[2019-12-20] MEDS: METOPROLOL SUCC 25MG EXT REL TAB PO SCH (23:31)
[2019-12-20] MEDS: DONEPEZIL HCL 10 MG TAB PO SCH (23:31)
[2019-12-20] MEDS: INSULIN ASPART 100 UNITS/ML 3 ML PEN SC SCH (23:37)
[2019-12-20] MEDS: INSULIN GLARGINE SOLOSTAR 100 UNITS/ML 3 ML PEN SC SCH (23:39)
[2019-12-20] MEDS: HEPARIN SOD 5,000 UNIT/0.5 ML VIAL SQ SCH (23:39)
[2019-12-21] MEDS: cefTRIAXone SODIUM 2,000 MG in DEXTROSE 5% 50 ML IV SCH (01:03)
[2019-12-21] MEDS: HEPARIN SOD 5,000 UNIT/0.5 ML VIAL SQ SCH ×3 (05:33→20:31)
[2019-12-21] MEDS: LEVOTHYROXINE SODIUM 112 MCG TABLET PO SCH (05:33)
[2019-12-21 05:47] LABS: Basophils # (auto) 0.01 K/uL (0-0.2); Basophils % (auto) 0.2 %; Eosinophils # (auto) 0.16 K/uL (0-0.5); Eosinophils % (auto) 3.1 %; Hematocrit (blood only) 47.6 % (42-52); Hemoglobin 15.8 g/dL (14.0-18.0); Immature Granulocytes # (auto) 0.01 K/uL (0.00-0.02); Immature Granulocytes % (auto) 0.2 %; Lymphocytes % (auto) 26.7 %; Mean Corpuscular Hemoglobin 32.6 pg (25-34); Mean Corpuscular Hgb Conc 33.2 g/dL (32-36); Mean Corpuscular Volume 98.3 fL (80-100); Mean Platelet Volume 11.1 fL (7.4-10.4); Monocytes # (auto) 0.75 K/uL (0.11-0.59); Monocytes % (auto) 14.3 %; Neutrophils # (auto) 2.91 K/uL (1.4-6.5); Neutrophils % (auto) 55.5 %; Nucleated RBC # (auto) 0.04 K/uL (0-0); Nucleated RBC % (auto) 0.8 %; Platelet Count 102 K/uL (130-400); RDW Coefficient of Variation 17.4 % (11.5-14.5); RDW Standard Deviation 62.1 fL (36.4-46.3); Red Blood Count 4.84 M/uL (4.7-6.1); White Blood Count 5.24 K/uL (4.8-10.8)
[2019-12-21 06:19] LABS: BUN Creatinine Ratio 18.5 (10-20); Calcium 6.9 mg/dl (8.5-10.1); Creatinine Clr Calc Pharmacy 25.2 ml/min; Est GFR (African American) 28.6; Est GFR (Non-African American) 24.7; Magnesium 2.5 mg/dl (1.8-2.4); Potassium 4.5 mmol/L (3.5-5.1)
[2019-12-21 06:26] LABS: Estimated Average Glucose 197 mg/dl; Hemoglobin A1C 8.5 % (4.5-5.6)
--- NOTE | 2019-12-21 06:45 | Ultrasound Report ---
US venous doppler LE BI HISTORY: Pain. Edema. b/l lower extrmity edema and erytrhema. dvt? COMPARISON STUDY: None. FINDINGS: There is normal compressibility, flow, and augmentation within the bilateral lower extremit y deep venous systems. IMPRESSION: No DVT within the right or left lower extremity. ACT 112: Negative or not required by law. The above report was generated using voice recognition software. It may contain grammatical, syntax or spelling errors. Electronically signed by: Javier Og M.D. 12/21/2019 6:44 AM
[2019-12-21 06:53] LABS: Troponin I 0.088 ng/ml (0-0.045)
[2019-12-21] MEDS ORDERED: ACETAMINOPHEN 325 MG TAB PO PRN (08:00)
[2019-12-21] MEDS: CALCIUM 600MG + VIT D 400 IU TAB PO SCH (08:20)
[2019-12-21] MEDS: CYANOCOBALAMIN 500 MCG TABLET (VITAMIN B-12) PO SCH (08:20)
[2019-12-21] MEDS: CALCITRIOL 0.25 MCG CAPSULE PO SCH (08:20)
[2019-12-21] MEDS: PRIMIDONE 50 MG TAB PO SCH ×2 (08:21→20:30)
[2019-12-21] MEDS: CHOLECALCIFEROL 1,000 UNITS 25 MCG TAB PO SCH (08:21)
[2019-12-21] MEDS: INSULIN ASPART 100 UNITS/ML 3 ML PEN SC SCH ×4 (08:22→20:30)
--- NOTE | 2019-12-21 08:41 | Cardiology Consultation ---
Date of Consultation December 21, 2019 Assessment & Plan (1) Biventricular congestive heart failure: Patient is an 84-year-old male with underlying history of severe pulmonary hypertension and cor pulmonale with acute on chronic biventricular heart failure presents now with gradual decompensation over the past several months. Weight is up greater than 30 pounds from last outpatient measurement in August 2019. Patient has noted gradually progressive edema bilateral extremities now extending up into the scrotum and lower abdomen. He denies any acute ischemic symptoms. Has been compliant per patient with medications and oxygen at home Recommendations: Continue IV diuretics. Will increase Lasix with albumin to 3 times daily dosing. Will need to manifest gradual and progressive volume loss though will need to follow renal function closely. Current findings reflect marked right heart failure and mild left heart failure. Agree with holding lisinopril will increase metoprolol slightly for heart rate and prevention of further atrial arrhythmias. (2) COR (chronic cor pulmonale): O2 and CPAP dependent, continue Degree of pulmonary hypertension previously observed very severe (3) Anasarca: (4) RBBB: (5) CKD (chronic kidney disease) stage 3, GFR 30-59 ml/min: (6) CAD (coronary artery disease): No current anginal symptoms will reduce isosorbide mononitrate to 30 mg/day to allow slightly higher blood pressure/diuresis (7) Elevated troponin: Elevated secondary to renal insufficiency, chronic heart failure with flat response History of Present Illness Reason for Consultation: Biventricular heart failure right greater than left Requesting Physician: Dr. Prieto Attending Physician: Tony Prieto MD History of Present Illness 84-year-old male with ongoing outpatient issues 1. Chronic right heart failure. 2. Severe pulmonary hypertension, cor pulmonale. 3. Hypoxemia and sleep apnea, treated with supplemental oxygen and CPAP therapy. 4. Ischemic cardiomyopathy with EF 45-49% 5. Chronic coronary artery disease. Cardiac catheterization in [place] on 08/15/2012: The left main was without significant obstruction. The patient was noted to have a 60% stenosis of the mid LAD, 60% stenosis the first obtuse marginal, and a 80% stenosis of the mid right coronary artery. There is also a 50% stenosis of the RPDA. He underwent PCI with drug-eluting stent to the mid RCA in the remaining disease has been managed medically. 6. Asymptomatic SVT and nonsustained ventricular tachycardia 7. History of tobacco abuse, ongoing snuff use. 8. COPD 9. Hypertension 10. Right bundle branch block 11. Type II diabetes mellitus. Followed by PCP 12. Chronic kidney disease 13. Dementia Patient presents noting several months gradual decline nearly 30 pound weight gain increasing hypoxia and lower extremity edema. Patient notes having turned her oxygen up to 4 L nasal cannula due to dyspnea 2 to 3 weeks ago due to complaints. Patient presents now due to increasing lower extremity edema and scrotal edema to the point of limiting difficulty in urination He denies any chest pains, tachypalpitations, syncope or near syncope. Has been taking medications and using CPAP faithfully. No bleeding difficulties melena hematochezia. Appetite's been fair follows sodium restriction at home No fevers chills or unexplained infections. Lower extremities are ruborous with skin breakdown Allergies Allergy/AdvReac Type Severity Reaction Status Date / Time yellow dye Allergy Unknown RASH Verified 12/20/19 19:48 Home Medications Home Medications Medication Instructions Recorded Confirmed Type aspirin 81 mg PO QPM 12/20/19 12/20/19 History calcitriol 0.5 mcg PO QAM 12/20/19 12/20/19 History calcium carb-D3-mag ox-zinc ox 1 tab PO QAM 12/20/19 12/20/19 History [Arslan Mag Zinc Plus D3] calcium carbonate-vitamin D3 2 cap PO QAM 12/20/19 12/20/19 History [Calcium 600 with Vitamin D3] cholecalciferol (vitamin D3) 25 mcg PO QAM 12/20/19 12/20/19 History [Vitamin D3] cyanocobalamin (vitamin B-12) 1,000 mcg PO QAM 12/20/19 12/20/19 History [Vitamin B-12] donepezil 10 mg PO 12/20/19 12/20/19 History furosemide 40 mg PO BID 12/20/19 12/20/19 History insulin aspart U-100 [Novolog See Rx Instructions .ROUTE .COMPLEX 12/20/19 12/20/19 History U-100 Insulin aspart] insulin glargine [Lantus U-100 8 unit SUBCUT 12/20/19 12/20/19 History Insulin] isosorbide mononitrate 60 mg PO QPM 12/20/19 12/20/19 History levothyroxine See Rx Instructions .ROUTE .COMPLEX 12/20/19 12/20/19 History lisinopril 5 mg PO QPM 12/20/19 12/20/19 History metoprolol succinate 25 mg PO HS 12/20/19 12/20/19 History omega-3 fatty acids-fish oil [Fish 1 cap PO QAM 12/20/19 12/20/19 History Oil] primidone 50 mg PO BID 12/20/19 12/20/19 History rosuvastatin 20 mg PO HS 12/20/19 12/20/19 History Patient History Medical History (Updated 12/21/19 @ 10:43 by Ronald Carballo MD) CHF (congestive heart failure) Hypothyroidism (acquired) Insulin dependent diabetes mellitus Social History Preferred Language: Hebrew Communication Ability: Effective Network Contract Manager Required: No Beliefs That Will Affect Care: None Current Living Situation: Alone Other Information That Helps Us Care for You: No Feels Safe at Home: Yes Safety Concerns: Feels Safe At This Time Smoking Status: Former smoker Tobacco Cessation Education Requested by Patient: No Hx Alcohol Use: No Hx Substance Use: No Review of Systems Review of Systems: All systems reviewed & are unremarkable except as noted in HPI & below Physical Exam Constitutional: Elderly male in no acute distress but dyspneic with minimal activity Eyes: PERRL, conjunctivae normal, anicteric sclerae ENMT: external ear and nose normal, oropharynx normal Neck: trachea midline, no thyromegaly Respiratory: Auscultation: + diminished lung sounds (Diffusely with minimal crackles basilar poor airflow) Cardiovascular: Rate/Rhythm: regular rate and regular rhythm (With frequent atrial ectopic beats) Palpation: + heave (Right ventricular heave palpable) Vessels: no carotid bruit Extremities: + edema (3-4+ lower extremity edema extending to the scrotum and lower abdomen with diffuse anasarca) Gastrointestinal (Abdomen): Inspection/Auscultation: + abdomen distended and + abdominal edema Percussion/Palpation: abdomen soft Musculoskeletal: Severe edema bilateral lower extremities with marked ruborous changes and skin breakdown Neurologic: Patient answering questions appropriately Psychiatric: A+Ox3, euthymic affect Results & Data ([facility]) Vital Signs (Past 12 Hours) Vital Signs Temp Pulse Pulse Resp BP BP Pulse Ox 12/21/19 07:36 36.9 C 111 H 20 110/71 90 12/21/19 03:16 36.3 C L 76 22 102/65 94 12/20/19 23:39 74 16 93 12/20/19 22:48 36.4 C L 66 18 134/68 94 12/20/19 22:45 75 12/20/19 21:01 73 22 147/89 H 94 12/20/19 21:00 74 23 92 Pulse Ox 12/21/19 07:36 12/21/19 03:16 12/20/19 23:39 12/20/19 22:48 12/20/19 22:45 94 12/20/19 21:01 12/20/19 21:00 Diagnostic Findings Echocardiogram 11/29/2018 The right ventricular systolic function is mildly reduced . The right atrium is severely enlarged. There is no right atrial mass. Moderate tricuspid regurgitation is present. Severe pulmonary hypertension is present. The qualitative LV ejection fraction is 45-49% (mildly reduced). The left atrium is normal sized (< 35 ml/m^2). Mild aortic valve regurgitation is present. ECG Additional Comments: 20-DEC-2019 17:24:02 [facility]-EDSTAT ROUTINE RETRIEVAL Sinus rhythm with 1st degree A-V block with frequent Premature ventricular complexes Right bundle branch block Septal infarct , age undetermined T wave abnormality, consider inferolateral ischemia Abnormal ECG No change from comparison to study of 05/19/2019
[2019-12-21] MEDS ORDERED: [UNRECOGNIZED DRUG - OTHER] PO SCH (09:00)
[2019-12-21] MEDS ORDERED: VITAMIN D3 PO SCH (09:00)
[2019-12-21] MEDS ORDERED: CALCIUM CARBONATE VITAMIN D3 PO SCH (09:00)
--- NOTE | 2019-12-21 09:14 | Hospitalist Progress Note ---
Date of Service December 21, 2019 Assessment & Plan (1) Acute exacerbation of CHF (congestive heart failure): 84-year-old male with ongoing outpatient issues 1. Chronic right heart failure. 2. Severe pulmonary hypertension, cor pulmonale. 3. Hypoxemia and sleep apnea, treated with supplemental oxygen and CPAP therapy. 4. Ischemic cardiomyopathy with EF 45-49% 5. Chronic coronary artery disease. Cardiac catheterization in [place] on 08/15/2012: The left main was without significant obstruction. The patient was noted to have a 60% stenosis of the mid LAD, 60% stenosis the first obtuse marginal, and a 80% stenosis of the mid right coronary artery. There is also a 50% stenosis of the RPDA. He underwent PCI with drug-eluting stent to the mid RCA in the remaining disease has been managed medically. 6. Asymptomatic SVT and nonsustained ventricular tachycardia 7. History of tobacco abuse, ongoing snuff use. 8. COPD 9. Hypertension 10. Right bundle branch block 11. Type II diabetes mellitus. Followed by PCP 12. Chronic kidney disease 13. Dementia appears to be in acute congestive heart failure Coronary artery disease status post stent in the past elevated troponins -acute CHF exacerbation based on increased oxygen requirements at home,bilateral lower extremity edema and scrotal swelling, elevated BNP, CT chest: Cardiomegaly with pulmonary vascular congestion. ,Fluid overload manifested by trace left and moderate right pleural effusions with small volume of abdominal ascites and anasarca, Right lower lobe basilar consolidation suggests probable atelectasis. -no chest pain -Toprol-XL, statin, and aspirin. -ultrasound of lower extremities No DVT within the right or left lower extremity -albumin is mildly low as 2.9 -was given IV lasix on admission, will like to try IV Lasix 40 mg BID with albumin for now, cardiology consultation to follow the patient Bilateral lower extremity edema with redness perhaps from weeping drainage previously? or chronic skin changes -wound care Scrotal swelling, penis swelling -diuresis -bladder scan qshift -scrotal ultrasound Acute kidney injury on chronic kidney disease stage III -Baseline creatinine around 1.8 to 2, admission creatinine of 2.38. -follow the creatinine while with diuretics Hypertension -Continue Imdur. Continue Toprol-XL. History of chronic obstructive pulmonary disease and chronic respiratory failure, on oxygen -supplementary oxygen Obstructive sleep apnea -on CPAP Pulmonary nodules -CT chest: Numerous bilateral solid pulmonary nodules measure up to 4 mm, Prior granulomatous disease. Vertebral Lesions -There are several ill-defined lucent lesions involving the vertebral bodies with an additional lucent lesion noted involving the anterior left fifth rib. -as per radiology "Correlation with skeletal survey radiographs recommended to evaluate for additional lesions. Primary differential considerations would include multiple lipoma versus lytic metastasis from unknown primary" -bone survey ordered Hypocalcemia -with corrected calcium of around 7.5 on admission -received calcium gluconate on admission -checking vitamin D levels -bone survey as above Thrombocytopenia, mild -follow the labs Type 2 diabetes mellitus with [facility] current use of insulin - continue home Lantus and placed on insulin sliding scale and follow the blood sugars, follow HbA1c levels. Hypothyroidism -Continue Synthroid. Deep venous thrombosis prophylaxis, heparin subcutaneous Admission and Anticipated Discharge Date Admission Date: December 20, 2019 Subjective Patient seen and examined at bedside. he reports that at baseline he uses nasal cannula around 3 liter/min at baseline but recently at home increased to 4 liters/min. He uses CPAP at night. He noted more swelling of scrotum x 4 days. he reports being able to make urine. denies chest pain or palpitations or lightheadedness or dizziness. no vomiting. Review of Systems Review of Systems: All systems reviewed & are unremarkable except as noted in Subjective Physical Exam Constitutional: cooperative Eyes: PERRL, conjunctivae normal, anicteric sclerae EOM intact bilaterally ENMT: external ear and nose normal, oropharynx normal Neck: trachea midline, no thyromegaly normal visual inspection Respiratory: normal respiratory effort Cardiovascular: Rate/Rhythm: regular rate Gastrointestinal (Abdomen): normal bowel sounds, soft, nontender, no hepatosplenomegaly Musculoskeletal: bilateral lower extremity swelling and some redness of lower extremities likely from chronic skin changes, swelling of scrotum and penis, left neck with dressing over area of healing skin Neurologic: PERRL, EOMI, accommodation nl, no face palsy, no dysarthria Psychiatric: Orientation: alert and cooperative Results & Data Results & Data ([facility]) Vital Signs (Past 12 Hours) Vital Signs Temp Pulse Pulse Resp BP Pulse Ox Pulse Ox 12/21/19 07:36 36.9 C 111 H 20 110/71 90 12/21/19 03:16 36.3 C L 76 22 102/65 94 12/20/19 23:39 74 16 93 12/20/19 22:48 36.4 C L 66 18 134/68 94 12/20/19 22:45 75 94
[2019-12-21] MEDS ORDERED: ALBUMIN 25% 50 ML with FUROSEMIDE 40 MG IV SCH (09:30)
--- NOTE | 2019-12-21 11:38 | Ultrasound Report ---
US scrotum/testicle HISTORY: Scrotal edema scrotal swelling COMPARISON: None. FINDINGS: Right testis: Maximum linear dimension 4.0 cm. Normal vascular flow. Normal epididymis. Left testis: Maximum dimension 3.7 cm. Normal vascular flow. Normal epididymis. Diffuse scrotal wall edema suggesting cellulitis. No evidence for drainable abscess at this time. IMPRESSION: 1. Normal testis. 2. Normal vascular flow to both testicles. 3. Extensive bilateral scrotal wall edema 4. No evidence for drainable abscess or collection at this time ACT 112: Negative or not required by law. The above report was generated using voice recognition software. It may contain grammatical, syntax or spelling errors. Electronically signed by: Javier Og M.D. 12/21/2019 11:37 AM
--- NOTE | 2019-12-21 11:57 | XRay Report ---
XR bone survey CLINICAL HISTORY: look for lytic lesions myeloma COMPARISON STUDY: 12/20/2019 FINDINGS: Survey evaluation of the axial and pedicular skeleton fails to show significant number of l ytic lesions. There are degenerative changes of the thoracic as well as lumbar spine. There are findi ngs of mild osteoporotic compression deformity superior endplate of L3 and L4. Potential lytic changes involving the inferior aspect of T12. Considerable degenerative change of all visualized bony structures. IMPRESSION: Complete bone survey fails to demonstrate any significant additional lytic changes. Mild compression deformity superior endplate of L3 and L4 considered osteoporotic. ACT 112: Negative or not required by law. The above report was generated using voice recognition software. It may contain grammatical, syntax or spelling errors. Electronically signed by: Javier Og M.D. 12/21/2019 11:56 AM
[2019-12-21] MEDS: ALBUMIN 25% 50 ML with FUROSEMIDE 40 MG IV SCH ×3 (12:38→20:28)
[2019-12-21] MEDS: METOPROLOL SUCC 25MG EXT REL TAB PO SCH ×2 (12:39→20:28)
[2019-12-21] MEDS: ROSUVASTATIN CALCIUM 20 MG TAB PO SCH (20:29)
[2019-12-21] MEDS: ISOSORBIDE MONO EXTENDED REL 30 MG TABCR PO SCH (20:29)
[2019-12-21] MEDS: ASPIRIN 81 MG ECTAB PO SCH (20:29)
[2019-12-21] MEDS: DONEPEZIL HCL 10 MG TAB PO SCH (20:29)
[2019-12-21] MEDS: INSULIN GLARGINE SOLOSTAR 100 UNITS/ML 3 ML PEN SC SCH (20:31)
[2019-12-22] MEDS: cefTRIAXone SODIUM 2,000 MG in DEXTROSE 5% 50 ML IV SCH (00:33)
--- NOTE | 2019-12-22 04:29 | Electrocardiogram Report ---
Test Reason : Blood Pressure : / mmHG Vent. Rate : 081 BPM Atrial Rate : 081 BPM P-R Int : 282 ms QRS Dur : 142 ms QT Int : 444 ms P-R-T Axes : 061 165 003 degrees QTc Int : 515 ms Sinus rhythm with 1st degree A-V block with frequent Premature ventricular complexes Right bundle branch block Possible Septal infarct , age undetermined T wave abnormality, consider inferolateral ischemia Abnormal ECG No previous ECGs available Confirmed by Handy Nick ([id number]) on 12/22/2019 4:28:27 AM Referred By: REFERRED SELF Confirmed By:Handy Nick
[2019-12-22] MEDS: HEPARIN SOD 5,000 UNIT/0.5 ML VIAL SQ SCH ×2 (05:43→15:47)
[2019-12-22] MEDS: LEVOTHYROXINE SODIUM 112 MCG TABLET PO SCH (05:43)
[2019-12-22 05:58] LABS: Basophils # (auto) 0.02 K/uL (0-0.2); Basophils % (auto) 0.4 %; Eosinophils # (auto) 0.15 K/uL (0-0.5); Eosinophils % (auto) 2.9 %; Hematocrit (blood only) 45.4 % (42-52); Hemoglobin 14.7 g/dL (14.0-18.0); Immature Granulocytes # (auto) 0.01 K/uL (0.00-0.02); Immature Granulocytes % (auto) 0.2 %; Lymphocytes # (auto) 1.12 K/uL (1.2-3.4); Lymphocytes % (auto) 21.8 %; Mean Corpuscular Hemoglobin 32.5 pg (25-34); Mean Corpuscular Hgb Conc 32.4 g/dL (32-36); Mean Corpuscular Volume 100.4 fL (80-100); Mean Platelet Volume 11.7 fL (7.4-10.4); Monocytes # (auto) 0.58 K/uL (0.11-0.59); Monocytes % (auto) 11.3 %; Neutrophils # (auto) 3.25 K/uL (1.4-6.5); Neutrophils % (auto) 63.4 %; Nucleated RBC # (auto) 0.03 K/uL (0-0); Nucleated RBC % (auto) 0.7 %; Platelet Count 106 K/uL (130-400); RDW Coefficient of Variation 17.3 % (11.5-14.5); RDW Standard Deviation 62.7 fL (36.4-46.3); Red Blood Count 4.52 M/uL (4.7-6.1); White Blood Count 5.13 K/uL (4.8-10.8)
[2019-12-22 06:25] LABS: BUN Creatinine Ratio 19.5 (10-20); Calcium 7.2 mg/dl (8.5-10.1); Creatinine Clr Calc Pharmacy 23.7 ml/min; Est GFR (Non-African American) 23.3; Magnesium 2.5 mg/dl (1.8-2.4); Potassium 4.1 mmol/L (3.5-5.1)
[2019-12-22 06:28] LABS: Albumin Globulin Ratio 0.9 (0.9-2); Bilirubin,Total 0.5 mg/dl (0.2-1); Globulin 3.3 gm/dl (2.5-4.0); Phosphorus 5.5 mg/dl (2.5-4.9); Total Protein 6.3 gm/dl (6.4-8.2)
[2019-12-22] MEDS: INSULIN ASPART 100 UNITS/ML 3 ML PEN SC SCH ×4 (08:18→21:42)
[2019-12-22] MEDS: CHOLECALCIFEROL 1,000 UNITS 25 MCG TAB PO SCH (08:19)
[2019-12-22] MEDS: PRIMIDONE 50 MG TAB PO SCH ×2 (08:19→20:29)
[2019-12-22] MEDS: METOPROLOL SUCC 25MG EXT REL TAB PO SCH ×2 (08:19→20:30)
[2019-12-22] MEDS: CALCITRIOL 0.25 MCG CAPSULE PO SCH (08:20)
[2019-12-22] MEDS: CYANOCOBALAMIN 500 MCG TABLET (VITAMIN B-12) PO SCH (08:20)
[2019-12-22] MEDS: ALBUMIN 25% 50 ML with FUROSEMIDE 40 MG IV SCH ×3 (10:11→21:42)
[2019-12-22] MEDS: CALCIUM 600MG + VIT D 400 IU TAB PO SCH (10:11)
--- NOTE | 2019-12-22 10:35 | Cardiology Progress Note ---
Date of Service December 22, 2019 Assessment & Plan (1) Biventricular congestive heart failure: Patient is an 84-year-old male with underlying history of severe pulmonary hypertension and cor pulmonale with acute on chronic biventricular heart failure presents now with gradual decompensation over the past several months. Weight is up greater than 30 pounds from last outpatient measurement in August 2019. Patient has noted gradually progressive edema bilateral extremities now extending up into the scrotum and lower abdomen. He denies any acute ischemic symptoms. Has been compliant per patient with medications and oxygen at home Recommendations: Continue IV diuretics. Expect gradual diuresis with careful follow renal function. Patient may benefit from low-dose dobutamine infusion however reluctant to begin with high likelihood of arrhythmias (2) COR (chronic cor pulmonale): O2 and CPAP dependent, continue Degree of pulmonary hypertension previously observed very severe approaching systemic (3) Anasarca: (4) RBBB: (5) CKD (chronic kidney disease) stage 3, GFR 30-59 ml/min: (6) CAD (coronary artery disease): No current anginal symptoms will reduce isosorbide mononitrate to 30 mg/day to allow slightly higher blood pressure/diuresis (7) Elevated troponin: Elevated secondary to renal insufficiency, chronic heart failure with flat response Subjective Patient was seen and examined, chart, medications, telemetry reviewed Patient feels somewhat improved today. Does note frequent urination yesterday not fully recorded Weight down 3 kg No chest pain or worsening shortness of breath. Leg edema improved scrotal edema still present Physical Exam Eyes: PERRL, conjunctivae normal, anicteric sclerae ENMT: external ear and nose normal, oropharynx normal Neck: trachea midline, no thyromegaly Respiratory: Auscultation: + diminished lung sounds (Diffusely with minimal crackles basilar poor airflow) Cardiovascular: Rate/Rhythm: regular rate and regular rhythm (With frequent atrial ectopic beats) Palpation: + heave (Right ventricular heave palpable) Vessels: no carotid bruit Extremities: + edema (3+ lower extremity edema extending to the scrotum and lower abdomen with diffuse anasarca, slightly improved) Gastrointestinal (Abdomen): Inspection/Auscultation: + abdomen distended and + abdominal edema Percussion/Palpation: abdomen soft Psychiatric: A+Ox3, euthymic affect Results & Data Vital Signs (Past 12 Hours) Vital Signs Temp Pulse Pulse Resp BP BP Pulse Ox 12/22/19 07:08 36.6 C 71 20 118/76 93 12/22/19 04:00 36.5 C 58 L 20 114/72 92 12/22/19 03:26 70 16 91 12/21/19 23:39 36.5 C 72 18 102/66 90 Laboratory Results Laboratory Results - last 24 hr 12/20/19 12/21/19 12/21/19 21:33 10:33 11:44 WBC RBC Hgb Hct MCV MCH MCHC RDW Std Deviation RDW Coeff of Ricky Plt Count MPV Immature Gran % (Auto) Neut % (Auto) Lymph % (Auto) Angelina % (Auto) Eos % (Auto) Baso % (Auto) Neut # (Auto) Lymph # (Auto) Angelina # (Auto) Eos # (Auto) Baso # (Auto) Immature Gran # (Auto) Absolute Nucleated RBC Nucleated RBC % (auto) Sodium Potassium Chloride Carbon Dioxide Anion Gap BUN Creatinine Est Cr Clr Drug Dosing Est GFR ( Amer) Est GFR (Non-Af Amer) BUN/Creatinine Ratio Glucose POC Glucose 136 H Calcium Phosphorus Magnesium Total Bilirubin AST ALT Alkaline Phosphatase Troponin I 0.074 H* Total Protein Albumin Globulin Albumin/Globulin Ratio Procalcitonin PTH Intact Nasal Screen MRSA (PCR) Bld Cult Staph aureus PCR Negative Blood Culture MRSA PCR Negative 12/21/19 12/21/19 12/21/19 16:12 17:10 17:13 WBC RBC Hgb Hct MCV MCH MCHC RDW Std Deviation RDW Coeff of Ricky Plt Count MPV Immature Gran % (Auto) Neut % (Auto) Lymph % (Auto) Angelina % (Auto) Eos % (Auto) Baso % (Auto) Neut # (Auto) Lymph # (Auto) Angelina # (Auto) Eos # (Auto) Baso # (Auto) Immature Gran # (Auto) Absolute Nucleated RBC Nucleated RBC % (auto) Sodium Potassium Chloride Carbon Dioxide Anion Gap BUN Creatinine Est Cr Clr Drug Dosing Est GFR ( Amer) Est GFR (Non-Af Amer) BUN/Creatinine Ratio Glucose POC Glucose 178 H Calcium Phosphorus Magnesium Total Bilirubin AST ALT Alkaline Phosphatase Troponin I Total Protein Albumin Globulin Albumin/Globulin Ratio Procalcitonin 0.08 PTH Intact Nasal Screen MRSA (PCR) Negative Bld Cult Staph aureus PCR Blood Culture MRSA PCR 07/03/0312/22/19 12/22/19 20:12 05:41 05:41 WBC 5.13 RBC 4.52 L Hgb 14.7 Hct 45.4 MCV 100.4 H MCH 32.5 MCHC 32.4 RDW Std Deviation 62.7 H RDW Coeff of Ricky 17.3 H Plt Count 106 L MPV 11.7 H Immature Gran % (Auto) 0.2 Neut % (Auto) 63.4 Lymph % (Auto) 21.8 Angelina % (Auto) 11.3 Eos % (Auto) 2.9 Baso % (Auto) 0.4 Neut # (Auto) 3.25 Lymph # (Auto) 1.12 L Angelina # (Auto) 0.58 Eos # (Auto) 0.15 Baso # (Auto) 0.02 Immature Gran # (Auto) 0.01 Absolute Nucleated RBC 0.03 H Nucleated RBC % (auto) 0.7 Sodium 138 Potassium 4.1 Chloride 101 Carbon Dioxide 31 Anion Gap 7.0 BUN 47 H Creatinine 2.42 H Est Cr Clr Drug Dosing 23.7 Est GFR ( Amer) 27.0 Est GFR (Non-Af Amer) 23.3 BUN/Creatinine Ratio 19.5 Glucose 150 H POC Glucose 174 H Calcium 7.2 L Phosphorus 5.5 H Magnesium 2.5 H Total Bilirubin 0.5 AST 20 ALT 17 Alkaline Phosphatase 80 Troponin I Total Protein 6.3 L Albumin 3.0 L Globulin 3.3 Albumin/Globulin Ratio 0.9 Procalcitonin PTH Intact Nasal Screen MRSA (PCR) Bld Cult Staph aureus PCR Blood Culture MRSA PCR 12/22/19 12/22/19 05:41 07:24 WBC RBC Hgb Hct MCV MCH MCHC RDW Std Deviation RDW Coeff of Ricky Plt Count MPV Immature Gran % (Auto) Neut % (Auto) Lymph % (Auto) Angelina % (Auto) Eos % (Auto) Baso % (Auto) Neut # (Auto) Lymph # (Auto) Angelina # (Auto) Eos # (Auto) Baso # (Auto) Immature Gran # (Auto) Absolute Nucleated RBC Nucleated RBC % (auto) Sodium Potassium Chloride Carbon Dioxide Anion Gap BUN Creatinine Est Cr Clr Drug Dosing Est GFR ( Amer) Est GFR (Non-Af Amer) BUN/Creatinine Ratio Glucose POC Glucose 184 H Calcium Phosphorus Magnesium Total Bilirubin AST ALT Alkaline Phosphatase Troponin I Total Protein Albumin Globulin Albumin/Globulin Ratio Procalcitonin PTH Intact 46.1 Nasal Screen MRSA (PCR) Bld Cult Staph aureus PCR Blood Culture MRSA PCR
--- NOTE | 2019-12-22 11:25 | Hospitalist Progress Note ---
Date of Service December 22, 2019 Assessment & Plan (1) Acute exacerbation of CHF (congestive heart failure): 84-year-old male with ongoing outpatient issues 1. Chronic right heart failure. 2. Severe pulmonary hypertension, cor pulmonale. 3. Hypoxemia and sleep apnea, treated with supplemental oxygen and CPAP therapy. 4. Ischemic cardiomyopathy with EF 45-49% 5. Chronic coronary artery disease. Cardiac catheterization in [place] on 08/15/2012: The left main was without significant obstruction. The patient was noted to have a 60% stenosis of the mid LAD, 60% stenosis the first obtuse marginal, and a 80% stenosis of the mid right coronary artery. There is also a 50% stenosis of the RPDA. He underwent PCI with drug-eluting stent to the mid RCA in the remaining disease has been managed medically. 6. Asymptomatic SVT and nonsustained ventricular tachycardia 7. History of tobacco abuse, ongoing snuff use. 8. COPD 9. Hypertension 10. Right bundle branch block 11. Type II diabetes mellitus. Followed by PCP 12. Chronic kidney disease 13. Dementia appears to be in acute congestive heart failure Coronary artery disease status post stent in the past elevated troponins -acute CHF exacerbation based on increased oxygen requirements at home,bilateral lower extremity edema and scrotal swelling, elevated BNP, CT chest: Cardiomegaly with pulmonary vascular congestion. ,Fluid overload manifested by trace left and moderate right pleural effusions with small volume of abdominal ascites and anasarca, Right lower lobe basilar consolidation suggests probable atelectasis. -no chest pain -Toprol-XL, statin, and aspirin. -ultrasound of lower extremities No DVT within the right or left lower extremity -albumin is mildly low as 2.9 -was given IV lasix on admission, then IV Lasix with albumin for now, cardiology consultation following the patient Bilateral lower extremity edema with redness perhaps from weeping drainage previously? or chronic skin changes -was started on ceftriaxone in case any concern of cellulitis -there is a admission 1 of 2 blood culture with Coag neg staph not lugdunensis; unclear whether this is contaminant or not, repeat blood cultures drawin on 12/21/2019, continue ceftriaxone for now -12/20/2019: No DVT within the right or left lower extremity. -wound care nurse concern for poor right pedal pulse, will get ultrasound arterial of right leg -wound care nurse plans to get culture of an eschar of the toe on right foot Scrotal swelling, penis swelling -diuresis -bladder scan qshift -scrotal ultrasound: Normal testis. Normal vascular flow to both testicles. Extensive bilateral scrotal wall edema. No evidence for drainable abscess or collection at this time Acute kidney injury on chronic kidney disease stage III -Baseline creatinine around 1.8 to 2, admission creatinine of 2.38. -follow the creatinine while with diuretics Hypertension -Continue Imdur. Continue Toprol-XL. History of chronic obstructive pulmonary disease and chronic respiratory failure, on oxygen -supplementary oxygen Obstructive sleep apnea -on CPAP Pulmonary nodules -CT chest: Numerous bilateral solid pulmonary nodules measure up to 4 mm, Prior granulomatous disease. Osteoporosis -There are several ill-defined lucent lesions involving the vertebral bodies with an additional lucent lesion noted involving the anterior left fifth rib. -as per radiology "Correlation with skeletal survey radiographs recommended to evaluate for additional lesions. Primary differential considerations would include multiple lipoma versus lytic metastasis from unknown primary" -bone survey: Complete bone survey fails to demonstrate any significant additional lytic changes. Mild compression deformity superior endplate of L3 and L4 considered osteoporotic. Hypocalcemia -with corrected calcium of around 7.5 on admission -received calcium gluconate on admission -vitamin D of 46.1 ng/ml is normal -PTH of 46.1 pg/ml and is normal -will give trial of calcium acetate Thrombocytopenia, mild -follow the labs Type 2 diabetes mellitus with terminologist current use of insulin - continue home Lantus and placed on insulin sliding scale and follow the blood sugars, HbA1c levels 8.5 Hypothyroidism -Continue Synthroid. Deep venous thrombosis prophylaxis, heparin subcutaneous Admission and Anticipated Discharge Date Admission Date: December 20, 2019 Subjective on nasal cannula oxygen. no acute distress. medical doctor assessed while wound care nurse in the room -wound care nurse concern for poor right pedal pulse, will get ultrasound arterial of right leg -wound care nurse plans to get culture of an eschar of the toe on right foot patient denies any acute pain. denies other symptoms Review of Systems Review of Systems: All systems reviewed & are unremarkable except as noted in Subjective Physical Exam Constitutional: cooperative Eyes: PERRL, conjunctivae normal, anicteric sclerae EOM intact bilaterally ENMT: external ear and nose normal, oropharynx normal Neck: trachea midline, no thyromegaly normal visual inspection Respiratory: normal respiratory effort Cardiovascular: Rate/Rhythm: regular rate Gastrointestinal (Abdomen): normal bowel sounds, soft, nontender, no hepatosplenomegaly Musculoskeletal: -wound care nurse concern for poor right pedal pulse, will get ultrasound arterial of right leg -wound care nurse plans to get culture of an eschar of the toe on right foot redness of the lower extremities bilaterally Neurologic: PERRL, EOMI, accommodation nl, no face palsy, no dysarthria Psychiatric: Orientation: alert and cooperative Genitourinary: + scrotum abnormality (scrotal and penile swelling) Results & Data Results & Data ([facility]) Vital Signs (Past 12 Hours) Vital Signs Temp Pulse Pulse Resp BP BP Pulse Ox 12/22/19 07:08 36.6 C 71 20 118/76 93 12/22/19 04:00 36.5 C 58 L 20 114/72 92 12/22/19 03:26 70 16 91 12/21/19 23:39 36.5 C 72 18 102/66 90
[2019-12-22] MEDS: CALCIUM ACETATE 667 MG CAP/TAB PO SCH ×2 (12:30→16:46)
--- NOTE | 2019-12-22 16:35 | Ultrasound Report ---
ULTRASOUND RIGHT LOWER EXTREMITY ARTERIAL CLINICAL HISTORY: Diminished pedal pulses. COMPARISON STUDY: No priors TECHNIQUE: Real-time, grayscale, and color Doppler sonography of the arteries of the right lower extr emity is performed from the inguinal crease to the foot. Ankle brachial indices could not be assessed due to right lower extremity wounds and bandaging material. FINDINGS: Atherosclerotic plaque and irregularity is seen throughout the arteries of the right lower extremity. There are triphasic arterial waveforms in the common femoral artery with velocities measur ing up to 45 cm/s. The profundus femoris artery is patent with velocities measuring up to 76 cm/s. Th ere are blunted waveforms in the superficial femoral artery. Velocities in the proximal superficial f emoral artery measure up to 29 cm/s. There is a long segment of complete thrombosis identified in the mid to distal portions of the superficial femoral artery. There is reconstitution of the distal supe rficial femoral artery with velocities measuring up to 171 cm/s.There is occlusion of the proximal po pliteal artery with reconstitution distally. Velocities in the distal popliteal artery measure up to 21 cm/s with blunted arterial waveforms. Blunted waveforms are seen throughout the calf arteries. The re is complete thrombosis of the peroneal artery. The proximal and mid portions of the posterior tibi al artery patent with velocities measuring up to 24 cm/s. The distal posterior tibial artery is not v isualized due to overlying bandage material. The anterior tibial artery is patent with velocities hiren suring up to 21 cm second. The dorsalis pedis artery is patent with velocities measuring up to 15 cm/ s. IMPRESSION: 1. There are segments of complete thrombosis seen within the mid to distal superficial femoral artery and the popliteal artery. 2. 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 3. Ankle-brachial indices could not be evaluated. Electronically signed by: Jerad Rea M.D. 12/22/2019 4:34 PM
[2019-12-22] MEDS ORDERED: HEPARIN IV BOLUS 6,000 UNITS in SYRINGE 0 ML IV STA (17:54)
[2019-12-22] MEDS: HEPARIN SODIUM/DEXTROSE 25,000 UNITS/500 ML BAG IV SCH (18:14)
[2019-12-22] MEDS: ROSUVASTATIN CALCIUM 20 MG TAB PO SCH (20:29)
[2019-12-22] MEDS: DONEPEZIL HCL 10 MG TAB PO SCH (20:30)
[2019-12-22] MEDS: ASPIRIN 81 MG ECTAB PO SCH (20:30)
[2019-12-22] MEDS: ISOSORBIDE MONO EXTENDED REL 30 MG TABCR PO SCH (20:31)
[2019-12-22] MEDS: INSULIN GLARGINE SOLOSTAR 100 UNITS/ML 3 ML PEN SC SCH (21:44)
[2019-12-23] MEDS: cefTRIAXone SODIUM 2,000 MG in DEXTROSE 5% 50 ML IV SCH (00:08)
[2019-12-23 02:04] LABS: Hematocrit (blood only) 45.6 % (42-52); Hemoglobin 14.7 g/dL (14.0-18.0); Mean Corpuscular Hemoglobin 32.2 pg (25-34); Mean Corpuscular Hgb Conc 32.2 g/dL (32-36); Nucleated RBC # (auto) 0.03 K/uL (0-0); Nucleated RBC % (auto) 0.7 %; RDW Coefficient of Variation 17.2 % (11.5-14.5); RDW Standard Deviation 62.2 fL (36.4-46.3); Red Blood Count 4.56 M/uL (4.7-6.1); White Blood Count 5.05 K/uL (4.8-10.8)
[2019-12-23 02:24] LABS: Albumin Level 3.5 gm/dl (3.4-5.0); BUN Creatinine Ratio 22.5 (10-20); Basophils # (auto) 0.01 K/uL (0-0.2); Basophils % (auto) 0.2 %; Calcium 7.9 mg/dl (8.5-10.1); Creatinine Clr Calc Pharmacy 27.5 ml/min; Eosinophils # (auto) 0.14 K/uL (0-0.5); Eosinophils % (auto) 2.8 %; Est GFR (African American) 32.3; Est GFR (Non-African American) 27.8; Lymphocytes # (auto) 0.94 K/uL (1.2-3.4); Lymphocytes % (auto) 18.6 %; Magnesium 2.4 mg/dl (1.8-2.4); Monocytes # (auto) 0.57 K/uL (0.11-0.59); Monocytes % (auto) 11.3 %; Neutrophils # (auto) 3.39 K/uL (1.4-6.5); Neutrophils % (auto) 67.1 %; Partial Thromboplastin Ratio > 5.0; Platelet Count 90 K/uL (130-400); Platelet Estimate Decreased (Normal); Potassium 4.1 mmol/L (3.5-5.1)
[2019-12-23 02:27] LABS: Albumin Globulin Ratio 1.1 (0.9-2); Bilirubin,Total 0.6 mg/dl (0.2-1); Globulin 3.1 gm/dl (2.5-4.0); Phosphorus 5.2 mg/dl (2.5-4.9); Total Protein 6.6 gm/dl (6.4-8.2)
[2019-12-23 02:31] LABS: Partial Thromboplastin Time > 139.0 Seconds (21.0-31.0)
[2019-12-23 03:58] LABS: Partial Thromboplastin Ratio > 5.0
[2019-12-23 04:11] LABS: Partial Thromboplastin Time > 139.0 Seconds (21.0-31.0)
[2019-12-23] MEDS: LEVOTHYROXINE SODIUM 112 MCG TABLET PO SCH (06:07)
[2019-12-23 06:08] LABS: Partial Thromboplastin Ratio 1.7
[2019-12-23 06:15] LABS: Partial Thromboplastin Time 48.1 Seconds (21.0-31.0)
[2019-12-23] MEDS: PRIMIDONE 50 MG TAB PO SCH ×2 (08:45→20:45)
[2019-12-23] MEDS: CALCIUM ACETATE 667 MG CAP/TAB PO SCH ×3 (08:45→17:20)
[2019-12-23] MEDS: CYANOCOBALAMIN 500 MCG TABLET (VITAMIN B-12) PO SCH (08:46)
[2019-12-23] MEDS: CHOLECALCIFEROL 1,000 UNITS 25 MCG TAB PO SCH (08:46)
[2019-12-23] MEDS: CALCIUM 600MG + VIT D 400 IU TAB PO SCH (08:46)
[2019-12-23] MEDS: METOPROLOL SUCC 25MG EXT REL TAB PO SCH ×2 (08:46→20:44)
[2019-12-23] MEDS: CALCITRIOL 0.25 MCG CAPSULE PO SCH (08:46)
[2019-12-23] MEDS: INSULIN ASPART 100 UNITS/ML 3 ML PEN SC SCH ×4 (08:46→20:45)
[2019-12-23] MEDS: ALBUMIN 25% 50 ML with FUROSEMIDE 40 MG IV SCH (10:27)
--- NOTE | 2019-12-23 11:22 | Cardiology Progress Note ---
Date of Service December 23, 2019 Assessment & Plan (1) Biventricular congestive heart failure: Patient is an 84-year-old male with underlying history of severe pulmonary hypertension and cor pulmonale with acute on chronic biventricular heart failure presents now with gradual decompensation over the past several months. Weight is up greater than 30 pounds from last outpatient measurement in August 2019. Patient has noted gradually progressive edema bilateral extremities now extending up into the scrotum and lower abdomen. He denies any acute ischemic symptoms. Has been compliant per patient with medications and oxygen at home Recommendations: Continue IV diuretics. Expect gradual diuresis with careful follow renal function. We will titrate diuretics higher today now renal function improving (2) COR (chronic cor pulmonale): O2 and CPAP dependent, continue Degree of pulmonary hypertension previously observed very severe approaching systemic (3) Anasarca: (4) RBBB: (5) CKD (chronic kidney disease) stage 3, GFR 30-59 ml/min: (6) CAD (coronary artery disease): No current anginal symptoms will reduce isosorbide mononitrate to 30 mg/day to allow slightly higher blood pressure/diuresis (7) Elevated troponin: Elevated secondary to renal insufficiency, chronic heart failure with flat response Subjective Patient was seen and examined, chart, medications, telemetry reviewed Patient feels somewhat improved today. No profound diuresis. Renal function has improved however Physical Exam Eyes: PERRL, conjunctivae normal, anicteric sclerae ENMT: external ear and nose normal, oropharynx normal Neck: trachea midline, no thyromegaly Respiratory: Auscultation: + diminished lung sounds (Diffusely with minimal crackles basilar poor airflow) Cardiovascular: Rate/Rhythm: regular rate and regular rhythm (With frequent atrial ectopic beats) Palpation: + heave (Right ventricular heave palpable) Vessels: no carotid bruit Extremities: + edema (3+ lower extremity edema extending to the scrotum and lower abdomen with diffuse anasarca, slightly improved) Gastrointestinal (Abdomen): Inspection/Auscultation: + abdomen distended and + abdominal edema Percussion/Palpation: abdomen soft Psychiatric: A+Ox3, euthymic affect Results & Data Vital Signs (Past 12 Hours) Vital Signs Temp Pulse Pulse Resp BP Pulse Ox 12/23/19 07:33 36.3 C L 54 L 19 121/76 98 12/23/19 04:09 36.4 C L 67 18 123/80 91 12/23/19 03:10 58 L 20 91 12/23/19 00:13 36.8 C 59 L 19 114/69 93 Laboratory Results Laboratory Results - last 24 hr 12/22/19 12/22/19 12/22/19 11:26 16:23 20:43 WBC RBC Hgb Hct MCV MCH MCHC RDW Std Deviation RDW Coeff of Ricky Plt Count MPV Immature Gran % (Auto) Neut % (Auto) Lymph % (Auto) George % (Auto) Eos % (Auto) Baso % (Auto) Neut # (Auto) Lymph # (Auto) George # (Auto) Eos # (Auto) Baso # (Auto) Immature Gran # (Auto) Absolute Nucleated RBC Nucleated RBC % (auto) Platelet Estimate APTT PTT Ratio Sodium Potassium Chloride Carbon Dioxide Anion Gap BUN Creatinine Est Cr Clr Drug Dosing Est GFR ( Amer) Est GFR (Non-Af Amer) BUN/Creatinine Ratio Glucose POC Glucose 169 H 98 101 H Calcium Phosphorus Magnesium Total Bilirubin AST ALT Alkaline Phosphatase Total Protein Albumin Globulin Albumin/Globulin Ratio 12/23/19 12/23/19 12/23/19 00:12 01:54 01:54 WBC 5.05 RBC 4.56 L Hgb 14.7 Hct 45.6 MCV 100.0 MCH 32.2 MCHC 32.2 RDW Std Deviation 62.2 H RDW Coeff of Ricky 17.2 H Plt Count 90 L MPV 11.0 H Immature Gran % (Auto) 0.0 Neut % (Auto) 67.1 Lymph % (Auto) 18.6 George % (Auto) 11.3 Eos % (Auto) 2.8 Baso % (Auto) 0.2 Neut # (Auto) 3.39 Lymph # (Auto) 0.94 L George # (Auto) 0.57 Eos # (Auto) 0.14 Baso # (Auto) 0.01 Immature Gran # (Auto) 0.00 Absolute Nucleated RBC 0.03 H Nucleated RBC % (auto) 0.7 Platelet Estimate Decreased L APTT Cancelled PTT Ratio Cancelled Sodium 140 Potassium 4.1 Chloride 102 Carbon Dioxide 29 Anion Gap 9.0 BUN 47 H Creatinine 2.09 H D Est Cr Clr Drug Dosing 27.5 Est GFR ( Amer) 32.3 Est GFR (Non-Af Amer) 27.8 BUN/Creatinine Ratio 22.5 H Glucose 142 H POC Glucose Calcium 7.9 L Phosphorus 5.2 H Magnesium 2.4 Total Bilirubin 0.6 AST 25 ALT 19 Alkaline Phosphatase 81 Total Protein 6.6 Albumin 3.5 Globulin 3.1 Albumin/Globulin Ratio 1.1 12/23/19 12/23/19 12/23/19 01:54 03:29 05:29 WBC RBC Hgb Hct MCV MCH MCHC RDW Std Deviation RDW Coeff of Ricky Plt Count MPV Immature Gran % (Auto) Neut % (Auto) Lymph % (Auto) George % (Auto) Eos % (Auto) Baso % (Auto) Neut # (Auto) Lymph # (Auto) George # (Auto) Eos # (Auto) Baso # (Auto) Immature Gran # (Auto) Absolute Nucleated RBC Nucleated RBC % (auto) Platelet Estimate APTT > 139.0 H* > 139.0 H* 48.1 H* PTT Ratio > 5.0 > 5.0 1.7 Sodium Potassium Chloride Carbon Dioxide Anion Gap BUN Creatinine Est Cr Clr Drug Dosing Est GFR ( Amer) Est GFR (Non-Af Amer) BUN/Creatinine Ratio Glucose POC Glucose Calcium Phosphorus Magnesium Total Bilirubin AST ALT Alkaline Phosphatase Total Protein Albumin Globulin Albumin/Globulin Ratio 12/23/19 07:11 WBC RBC Hgb Hct MCV MCH MCHC RDW Std Deviation RDW Coeff of Ricky Plt Count MPV Immature Gran % (Auto) Neut % (Auto) Lymph % (Auto) George % (Auto) Eos % (Auto) Baso % (Auto) Neut # (Auto) Lymph # (Auto) George # (Auto) Eos # (Auto) Baso # (Auto) Immature Gran # (Auto) Absolute Nucleated RBC Nucleated RBC % (auto) Platelet Estimate APTT PTT Ratio Sodium Potassium Chloride Carbon Dioxide Anion Gap BUN Creatinine Est Cr Clr Drug Dosing Est GFR ( Amer) Est GFR (Non-Af Amer) BUN/Creatinine Ratio Glucose POC Glucose 127 H Calcium Phosphorus Magnesium Total Bilirubin AST ALT Alkaline Phosphatase Total Protein Albumin Globulin Albumin/Globulin Ratio
[2019-12-23 12:44] LABS: Partial Thromboplastin Ratio 2.8
[2019-12-23 13:02] LABS: Partial Thromboplastin Time 78.2 Seconds (21.0-31.0)
--- NOTE | 2019-12-23 13:38 | Hospitalist Progress Note ---
Date of Service December 23, 2019 Assessment & Plan (1) Acute exacerbation of CHF (congestive heart failure): 84-year-old male with ongoing outpatient issues 1. Chronic right heart failure. 2. Severe pulmonary hypertension, cor pulmonale. 3. Hypoxemia and sleep apnea, treated with supplemental oxygen and CPAP therapy. 4. Ischemic cardiomyopathy with EF 45-49% 5. Chronic coronary artery disease. Cardiac catheterization in [place] on 08/15/2012: The left main was without significant obstruction. The patient was noted to have a 60% stenosis of the mid LAD, 60% stenosis the first obtuse marginal, and a 80% stenosis of the mid right coronary artery. There is also a 50% stenosis of the RPDA. He underwent PCI with drug-eluting stent to the mid RCA in the remaining disease has been managed medically. 6. Asymptomatic SVT and nonsustained ventricular tachycardia 7. History of tobacco abuse, ongoing snuff use. 8. COPD 9. Hypertension 10. Right bundle branch block 11. Type II diabetes mellitus. Followed by PCP 12. Chronic kidney disease 13. Dementia acute congestive heart failure Coronary artery disease status post stent in the past elevated troponins -acute CHF exacerbation based on increased oxygen requirements at home,bilateral lower extremity edema and scrotal swelling, elevated BNP, CT chest: Cardiomegaly with pulmonary vascular congestion. ,Fluid overload manifested by trace left and moderate right pleural effusions with small volume of abdominal ascites and anasarca, Right lower lobe basilar consolidation suggests probable atelectasis. -no chest pain -metoprolol, statin, and aspirin. -ultrasound of lower extremities No DVT within the right or left lower extremity -albumin is mildly low as 2.9 -was given IV lasix on admission, then IV Lasix with albumin for now with last dose to end on 12/23/2019, cardiology consultation following the patient Bilateral lower extremity edema with redness perhaps from weeping drainage previously? or chronic skin changes PERIPHERAL ARTERIAL DISEASE -was started on ceftriaxone in case any concern of cellulitis -there is a admission 1 of 2 blood culture with Coag neg staph not lugdunensis; unclear whether this is contaminant or not, repeat blood cultures drawing on 12/21/2019, with no growth to date, continue ceftriaxone for now until cultures finalize -12/20/2019: No DVT within the right or left lower extremity. -12/22/2019: wound care nurse obtained culture of an eschar of the toe on right foot and staph aureus -12/22/2019 wound care nurse also concerned for poor right pedal pulse; arterial ultrasound shows There are segments of complete thrombosis seen within the mid to distal superficial femoral artery and the popliteal artery. There is complete thrombosis of the peroneal artery; when discussed with patient about these unusual results, he reports he has stent in left leg and was told 1 year ago in [place] that he could have benefit from re-vascularization of right leg but unable to be done for possible technical reasons; his renal function does not feasibly allow for CTA of the right leg; started on IV heparin on 12/22/2019, consult hospital vascular surgery service is pending evaluation Scrotal swelling, penis swelling -diuresis -bladder scan qshift -scrotal ultrasound: Normal testis. Normal vascular flow to both testicles. Extensive bilateral scrotal wall edema. No evidence for drainable abscess or collection at this time Acute kidney injury on chronic kidney disease stage III -Baseline creatinine around 1.8 to 2, admission creatinine of 2.38. -follow the creatinine while with diuretics -recent creatinine on 12/23/2019 is 2.09 Hypertension - metoprolol as 12.5 mg BID -as per cardiology 12/23/2019: No current anginal symptoms will reduce isosorbide mononitrate to 30 mg/day to allow slightly higher blood pressure/diuresis History of chronic obstructive pulmonary disease and chronic respiratory fa ilure, on oxygen -supplementary oxygen Obstructive sleep apnea -on CPAP Pulmonary nodules -CT chest: Numerous bilateral solid pulmonary nodules measure up to 4 mm, Prior granulomatous disease. Osteoporosis -There are several ill-defined lucent lesions involving the vertebral bodies with an additional lucent lesion noted involving the anterior left fifth rib. -as per radiology "Correlation with skeletal survey radiographs recommended to evaluate for additional lesions. Primary differential considerations would include multiple lipoma versus lytic metastasis from unknown primary" -bone survey: Complete bone survey fails to demonstrate any significant additional lytic changes. Mild compression deformity superior endplate of L3 and L4 considered osteoporotic. 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 Deep venous thrombosis prophylaxis, heparin IV Admission and Anticipated Discharge Date Admission Date: December 20, 2019 Subjective patient on IV heparin drip. Patient sleeping. no motor deficits as per nurse prior. did not wish to wake up the patient. Review of Systems Review of Systems: Unobtainable due to cognitive status Physical Exam Constitutional: comfortable ENMT: external ear and nose normal, oropharynx normal Neck: trachea midline, no thyromegaly normal visual inspection Respiratory: normal respiratory effort Cardiovascular: Rate/Rhythm: regular rate Gastrointestinal (Abdomen): normal bowel sounds, soft, nontender, no hepatosplenomegaly Genitourinary: + scrotum abnormality (scrotal and penile swelling) Results & Data Results & Data ([facility]) Vital Signs (Past 12 Hours) Vital Signs Temp Pulse Pulse Resp BP BP Pulse Ox 12/23/19 11:30 36.3 C L 78 20 109/66 94 12/23/19 07:33 36.3 C L 54 L 19 121/76 98 12/23/19 04:09 36.4 C L 67 18 123/80 91 12/23/19 03:10 58 L 20 91
[2019-12-23] MEDS: ALBUMIN 25% 50 ML with FUROSEMIDE 60 MG IV SCH ×2 (13:53→21:52)
[2019-12-23] MEDS: HEPARIN SODIUM/DEXTROSE 25,000 UNITS/500 ML BAG IV SCH (17:19)
[2019-12-23 19:48] LABS: Partial Thromboplastin Ratio 2.9
[2019-12-23 20:05] LABS: Partial Thromboplastin Time 81.7 Seconds (21.0-31.0)
[2019-12-23] MEDS: ASPIRIN 81 MG ECTAB PO SCH (20:45)
[2019-12-23] MEDS: DONEPEZIL HCL 10 MG TAB PO SCH (20:45)
[2019-12-23] MEDS: ISOSORBIDE MONO EXTENDED REL 30 MG TABCR PO SCH (20:45)
[2019-12-23] MEDS: INSULIN GLARGINE SOLOSTAR 100 UNITS/ML 3 ML PEN SC SCH (20:45)
[2019-12-23] MEDS: ROSUVASTATIN CALCIUM 20 MG TAB PO SCH (20:45)
[2019-12-24] MEDS: cefTRIAXone SODIUM 2,000 MG in DEXTROSE 5% 50 ML IV SCH (00:31)
[2019-12-24 03:00] LABS: Hematocrit (blood only) 43.9 % (42-52); Hemoglobin 14.4 g/dL (14.0-18.0); Mean Corpuscular Hemoglobin 32.9 pg (25-34); Mean Corpuscular Hgb Conc 32.8 g/dL (32-36); Mean Corpuscular Volume 100.2 fL (80-100); Mean Platelet Volume 12.1 fL (7.4-10.4); Platelet Count 100 K/uL (130-400); RDW Coefficient of Variation 17.3 % (11.5-14.5); RDW Standard Deviation 62.6 fL (36.4-46.3); Red Blood Count 4.38 M/uL (4.7-6.1); White Blood Count 5.08 K/uL (4.8-10.8)
[2019-12-24 03:22] LABS: Partial Thromboplastin Ratio 2.3
[2019-12-24 03:27] LABS: Partial Thromboplastin Time 65.3 Seconds (21.0-31.0)
[2019-12-24 03:37] LABS: BUN Creatinine Ratio 22.5 (10-20); Calcium 7.9 mg/dl (8.5-10.1); Creatinine Clr Calc Pharmacy 29.9 ml/min; Est GFR (African American) 35.5; Est GFR (Non-African American) 30.6; Potassium 4.1 mmol/L (3.5-5.1)
[2019-12-24 03:51] LABS: Basophils # (auto) 0.01 K/uL (0-0.2); Basophils % (auto) 0.2 %; Echinocytes 1+; Eosinophils # (auto) 0.17 K/uL (0-0.5); Eosinophils % (auto) 3.3 %; Lymphocytes # (auto) 1.16 K/uL (1.2-3.4); Lymphocytes % (auto) 22.8 %; Monocytes # (auto) 0.52 K/uL (0.11-0.59); Monocytes % (auto) 10.2 %; Neutrophils # (auto) 3.22 K/uL (1.4-6.5); Neutrophils % (auto) 63.5 %
[2019-12-24] MEDS ORDERED: LEVOTHYROXINE SODIUM 112 MCG TABLET PO SCH (06:30)
[2019-12-24] MEDS: INSULIN ASPART 100 UNITS/ML 3 ML PEN SC SCH ×4 (08:00→20:28)
[2019-12-24] MEDS: CHOLECALCIFEROL 1,000 UNITS 25 MCG TAB PO SCH (08:00)
[2019-12-24] MEDS: METOPROLOL SUCC 25MG EXT REL TAB PO SCH ×2 (08:02→20:20)
[2019-12-24] MEDS: CALCIUM ACETATE 667 MG CAP/TAB PO SCH ×3 (08:02→17:10)
[2019-12-24] MEDS: CALCITRIOL 0.25 MCG CAPSULE PO SCH (08:02)
[2019-12-24] MEDS: CALCIUM 600MG + VIT D 400 IU TAB PO SCH (08:02)
[2019-12-24] MEDS: CYANOCOBALAMIN 500 MCG TABLET (VITAMIN B-12) PO SCH (08:02)
[2019-12-24] MEDS: PRIMIDONE 50 MG TAB PO SCH ×2 (08:03→20:20)
[2019-12-24] MEDS: ALBUMIN 25% 50 ML with FUROSEMIDE 60 MG IV SCH (08:39)
[2019-12-24] MEDS ORDERED: ALBUMIN 25% 50 ML with FUROSEMIDE 40 MG IV SCH (09:00)
--- NOTE | 2019-12-24 09:55 | XRay Report ---
XR chest 1V portable CLINICAL HISTORY: follow up infiltrates COMPARISON STUDY: 12/20/2019 FINDINGS: The heart remains enlarged. There is a persistent subpulmonic pleural effusion with associa archana right basilar airspace opacities. There is mild vascular prominence and an element of mild pulmon mikael vascular congestion is suspected..[ IMPRESSION: 1. Cardiomegaly and mild pulmonary vascular congestion 2. Right pleural effusion with associated right basilar airspace opacities ACT 112: Negative or not required by law. Electronically signed by: Duke Turner M.D. 12/24/2019 9:53 AM
--- NOTE | 2019-12-24 11:48 | Hospitalist Progress Note ---
Date of Service December 24, 2019 Assessment & Plan (1) Acute exacerbation of CHF (congestive heart failure): 84-year-old male with ongoing outpatient issues 1. Chronic right heart failure. 2. Severe pulmonary hypertension, cor pulmonale. 3. Hypoxemia and sleep apnea, treated with supplemental oxygen and CPAP therapy. 4. Ischemic cardiomyopathy with EF 45-49% 5. Chronic coronary artery disease. Cardiac catheterization in [place] on 08/15/2012: The left main was without significant obstruction. The patient was noted to have a 60% stenosis of the mid LAD, 60% stenosis the first obtuse marginal, and a 80% stenosis of the mid right coronary artery. There is also a 50% stenosis of the RPDA. He underwent PCI with drug-eluting stent to the mid RCA in the remaining disease has been managed medically. 6. Asymptomatic SVT and nonsustained ventricular tachycardia 7. History of tobacco abuse, ongoing snuff use. 8. COPD 9. Hypertension 10. Right bundle branch block 11. Type II diabetes mellitus. Followed by PCP 12. Chronic kidney disease 13. Dementia acute congestive heart failure (Biventricular congestive heart failure with chronic cor pulmonale) Coronary artery disease status post stent in the past elevated troponins -acute CHF exacerbation based on increased oxygen requirements at home,bilateral lower extremity edema and scrotal swelling, elevated BNP, CT chest: Cardiomegaly with pulmonary vascular congestion. ,Fluid overload manifested by trace left and moderate right pleural effusions with small volume of abdominal ascites and anasarca, Right lower lobe basilar consolidation suggests probable atelectasis. -no chest pain -metoprolol, statin, and aspirin. -ultrasound of lower extremities No DVT within the right or left lower extremity -albumin is mildly low as 2.9 -was given IV lasix on admission, then IV Lasix with albumin being continued -cardiology consultation following the patient Bilateral lower extremity edema with redness perhaps from weeping drainage previously? or chronic skin changes PERIPHERAL ARTERIAL DISEASE -was started on ceftriaxone in case any concern of cellulitis -there is a admission 1 of 2 blood culture with Coag neg staph not lugdunensis; unclear whether this is contaminant or not, repeat blood cultures drawing on 12/21/2019, with no growth to date, continue ceftriaxone for now until cultures finalize -12/20/2019: No DVT within the right or left lower extremity. -12/22/2019: wound care nurse obtained culture of an eschar of the toe on right foot and staph aureus -12/22/2019 wound care nurse also concerned for poor right pedal pulse; arterial ultrasound shows There are segments of complete thrombosis seen within the mid to distal superficial femoral artery and the popliteal artery. There is complete thrombosis of the peroneal artery; when discussed with patient about these unusual results, he reports he has stent in left leg and was told 1 year ago in [place] that he could have benefit from re-vascularization of right leg but unable to be done for possible technical reasons; his renal function does not feasibly allow for CTA of the right leg; started on IV heparin on 12/22/2019, consult hospital vascular surgery service is pending evaluation Scrotal swelling, penis swelling (anasarca) -diuresis -bladder scan qshift -scrotal ultrasound: Normal testis. Normal vascular flow to both testicles. Extensive bilateral scrotal wall edema. No evidence for drainable abscess or collection at this time Acute kidney injury on chronic kidney disease stage III -Baseline creatinine around 1.8 to 2, admission creatinine of 2.38. -follow the creatinine while with diuretics and albumin -recent creatinine on 12/24/2019 is 1.93 which suggest the IV lasix with albumin helping the renal function Hypertension - metoprolol as 12.5 mg BID -as per cardiology 12/23/2019: No current anginal symptoms will reduce isosorbide mononitrate to 30 mg/day to allow slightly higher blood pressure/diuresis History of chronic obstructive pulmonary disease and chronic respiratory failure, on oxygen -supplementary oxygen Obstructive sleep apnea -on CPAP Pulmonary nodules -CT chest: Numerous bilateral solid pulmonary nodules measure up to 4 mm, Prior granulomatous disease. Hypocalcemia, Osteoporosis -There are several ill-defined lucent lesions involving the vertebral bodies with an additional lucent lesion noted involving the anterior left fifth rib. -as per radiology "Correlation with skeletal survey radiographs recommended to evaluate for additional lesions. Primary differential considerations would include multiple lipoma versus lytic metastasis from unknown primary" -bone survey: Complete bone survey fails to demonstrate any significant additional lytic changes. Mild compression deformity superior endplate of L3 and L4 considered osteoporotic. 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 Deep venous thrombosis prophylaxis, heparin IV Admission and Anticipated Discharge Date Admission Date: December 20, 2019 Subjective Patient breathing comfortably on nasal cannula. He could not sit up for posterior lung auscultation because of scrotal swelling. no abdomen pain. no vomiting. no dizziness. no headache. no acute leg pain Review of Systems Review of Systems: All systems reviewed & are unremarkable except as noted in Subjective Physical Exam Constitutional: comfortable Eyes: PERRL, conjunctivae normal, anicteric sclerae EOM intact bilaterally ENMT: external ear and nose normal, oropharynx normal Neck: trachea midline, no thyromegaly normal visual inspection Respiratory: normal respiratory effort Cardiovascular: Rate/Rhythm: regular rate Gastrointestinal (Abdomen): normal bowel sounds, soft, nontender, no hepatosplenomegaly Neurologic: PERRL, EOMI, accommodation nl, no face palsy, no dysarthria Psychiatric: Orientation: alert and cooperative Genitourinary: + scrotum abnormality (scrotal and penile swelling) Results & Data Results & Data ([facility]) Vital Signs (Past 12 Hours) Vital Signs Temp Pulse Pulse Resp BP BP Pulse Ox 12/24/19 07:46 36.4 C L 78 18 115/71 98 12/24/19 03:58 80 18 91 12/24/19 03:26 36.7 C 72 20 122/70 91
--- NOTE | 2019-12-24 13:55 | Cardiology Progress Note ---
Date of Service December 24, 2019 Assessment & Plan (1) Biventricular congestive heart failure: Patient is an 84-year-old male with underlying history of severe pulmonary hypertension and cor pulmonale with acute on chronic biventricular heart failure presents now with gradual decompensation over the past several months. Weight is up greater than 30 pounds from last outpatient measurement in August 2019. Patient has noted gradually progressive edema bilateral extremities now extending up into the scrotum and lower abdomen. He denies any acute ischemic symptoms. Has been compliant per patient with medications and oxygen at home Recommendations: Continue IV diuretics with upward titration today to 80 mg 3 times daily furosemide with albumin. (2) COR (chronic cor pulmonale): O2 and CPAP dependent, continue Degree of pulmonary hypertension previously observed very severe approaching systemic (3) Anasarca: (4) RBBB: (5) CKD (chronic kidney disease) stage 3, GFR 30-59 ml/min: (6) CAD (coronary artery disease): No current anginal symptoms will reduce isosorbide mononitrate to 30 mg/day to allow slightly higher blood pressure/diuresis (7) Elevated troponin: Elevated secondary to renal insufficiency, chronic heart failure with flat response Subjective Patient was seen and examined, chart, medications, telemetry reviewed No focal complaints however slightly lethargic. Has manifested slow diuresis but without profound improvement in edema. Renal function improving slightly, weight down Physical Exam Eyes: PERRL, conjunctivae normal, anicteric sclerae ENMT: external ear and nose normal, oropharynx normal Neck: trachea midline, no thyromegaly Respiratory: Auscultation: + diminished lung sounds (Diffusely with minimal crackles basilar poor airflow) Cardiovascular: Rate/Rhythm: regular rate and regular rhythm (With frequent atrial ectopic beats) Palpation: + heave (Right ventricular heave palpable) Vessels: no carotid bruit Extremities: + edema (3+ lower extremity edema extending to the scrotum and lower abdomen with diffuse anasarca, slightly improved) Gastrointestinal (Abdomen): Inspection/Auscultation: + abdomen distended and + abdominal edema Percussion/Palpation: abdomen soft Psychiatric: A+Ox3, euthymic affect Results & Data Vital Signs (Past 12 Hours) Vital Signs Temp Pulse Pulse Resp BP BP Pulse Ox 12/24/19 11:54 36.5 C 74 20 157/88 H 93 12/24/19 07:46 36.4 C L 78 18 115/71 98 12/24/19 03:58 80 18 91 12/24/19 03:26 36.7 C 72 20 122/70 91 Laboratory Results Laboratory Results - last 24 hr 12/23/19 12/23/19 12/23/19 16:46 19:10 20:37 WBC RBC Hgb Hct MCV MCH MCHC RDW Std Deviation RDW Coeff of Ricky Plt Count MPV Immature Gran % (Auto) Neut % (Auto) Lymph % (Auto) Calhoun % (Auto) Eos % (Auto) Baso % (Auto) Neut # (Auto) Lymph # (Auto) Calhoun # (Auto) Eos # (Auto) Baso # (Auto) Immature Gran # (Auto) Echinocytes APTT 81.7 H* PTT Ratio 2.9 Sodium Potassium Chloride Carbon Dioxide Anion Gap BUN Creatinine Est Cr Clr Drug Dosing Est GFR ( Amer) Est GFR (Non-Af Amer) BUN/Creatinine Ratio Glucose POC Glucose 142 H 197 H Calcium Specimen Hemolysis 12/24/19 12/24/19 12/24/19 02:37 02:37 02:37 WBC 5.08 RBC 4.38 L Hgb 14.4 Hct 43.9 MCV 100.2 H MCH 32.9 MCHC 32.8 RDW Std Deviation 62.6 H RDW Coeff of Ricky 17.3 H Plt Count 100 L MPV 12.1 H Immature Gran % (Auto) 0.0 Neut % (Auto) 63.5 Lymph % (Auto) 22.8 Calhoun % (Auto) 10.2 Eos % (Auto) 3.3 Baso % (Auto) 0.2 Neut # (Auto) 3.22 Lymph # (Auto) 1.16 L Calhoun # (Auto) 0.52 Eos # (Auto) 0.17 Baso # (Auto) 0.01 Immature Gran # (Auto) 0.00 Echinocytes 1+ APTT 65.3 H* PTT Ratio 2.3 Sodium 141 Potassium 4.1 Chloride 103 Carbon Dioxide 30 Anion Gap 8.0 BUN 44 H Creatinine 1.93 H Est Cr Clr Drug Dosing 29.9 Est GFR ( Amer) 35.5 Est GFR (Non-Af Amer) 30.6 BUN/Creatinine Ratio 22.5 H Glucose 137 H POC Glucose Calcium 7.9 L Specimen Hemolysis 12/24/19 12/24/19 07:25 11:14 WBC RBC Hgb Hct MCV MCH MCHC RDW Std Deviation RDW Coeff of Ricky Plt Count MPV Immature Gran % (Auto) Neut % (Auto) Lymph % (Auto) Calhoun % (Auto) Eos % (Auto) Baso % (Auto) Neut # (Auto) Lymph # (Auto) Calhoun # (Auto) Eos # (Auto) Baso # (Auto) Immature Gran # (Auto) Echinocytes APTT PTT Ratio Sodium Potassium Chloride Carbon Dioxide Anion Gap BUN Creatinine Est Cr Clr Drug Dosing Est GFR ( Amer) Est GFR (Non-Af Amer) BUN/Creatinine Ratio Glucose POC Glucose 148 H 199 H Calcium Specimen Hemolysis
[2019-12-24] MEDS: ALBUMIN 25% 50 ML with FUROSEMIDE 80 MG IV SCH ×2 (15:30→20:22)
[2019-12-24] MEDS: HEPARIN SODIUM/DEXTROSE 25,000 UNITS/500 ML BAG IV SCH (17:12)
[2019-12-24] MEDS: ASPIRIN 81 MG ECTAB PO SCH (20:20)
[2019-12-24] MEDS: ISOSORBIDE MONO EXTENDED REL 30 MG TABCR PO SCH (20:20)
[2019-12-24] MEDS: DONEPEZIL HCL 10 MG TAB PO SCH (20:20)
[2019-12-24] MEDS: ROSUVASTATIN CALCIUM 20 MG TAB PO SCH (20:21)
[2019-12-24] MEDS: INSULIN GLARGINE SOLOSTAR 100 UNITS/ML 3 ML PEN SC SCH (20:21)
[2019-12-25] MEDS: cefTRIAXone SODIUM 2,000 MG in DEXTROSE 5% 50 ML IV SCH
[2019-12-25 05:37] LABS: Hematocrit (blood only) 44.1 % (42-52); Hemoglobin 14.1 g/dL (14.0-18.0); Mean Corpuscular Volume 100.2 fL (80-100); RDW Coefficient of Variation 17.4 % (11.5-14.5); RDW Standard Deviation 62.1 fL (36.4-46.3); White Blood Count 5.04 K/uL (4.8-10.8)
[2019-12-25 05:55] LABS: Mean Platelet Volume 11.8 fL (7.4-10.4); Platelet Count 93 K/uL (130-400)
[2019-12-25 05:56] LABS: ALC (manual) 1.45 K/uL (1.2-3.4); ANC (manual) 3.29 K/uL (1.4-6.5); Eosinophils # (manual) 0.18 K/uL (0-0.5); Eosinophils % (manual) 3.5 %; Giant Platelets 1+; Lymphocytes # (manual) 0.66 K/uL (1.2-3.4); Monocytes # (manual) 0.13 K/uL (0.11-0.59); Monocytes % (manual) 2.6 %; Neutrophils # (manual) 3.29 K/uL (1.4-6.5); Neutrophils % (manual) 65.2 %; Reactive Lymphocytes # (manual) 0.79 K/uL; Reactive Lymphocytes % (manual) 15.7 %; Toxic Vacuolation 1+
[2019-12-25 05:58] LABS: Partial Thromboplastin Ratio 2.1
[2019-12-25 06:05] LABS: Partial Thromboplastin Time 59.1 Seconds (21.0-31.0)
[2019-12-25 06:10] LABS: Albumin Level 3.5 gm/dl (3.4-5.0); BUN Creatinine Ratio 24.1 (10-20); Calcium 8.7 mg/dl (8.5-10.1); Creatinine Clr Calc Pharmacy 32.4 ml/min; Est GFR (African American) 39.4; Magnesium 2.3 mg/dl (1.8-2.4)
[2019-12-25 06:15] LABS: Albumin Globulin Ratio 1.2 (0.9-2); Bilirubin,Total 0.6 mg/dl (0.2-1); Globulin 2.9 gm/dl (2.5-4.0); Phosphorus 3.6 mg/dl (2.5-4.9); Total Protein 6.4 gm/dl (6.4-8.2)
[2019-12-25] MEDS: LEVOTHYROXINE SODIUM 112 MCG TABLET PO SCH (06:17)
[2019-12-25] MEDS: INSULIN ASPART 100 UNITS/ML 3 ML PEN SC SCH ×4 (08:22→21:13)
[2019-12-25] MEDS: PRIMIDONE 50 MG TAB PO SCH ×2 (08:23→20:45)
[2019-12-25] MEDS: CALCITRIOL 0.25 MCG CAPSULE PO SCH (08:23)
[2019-12-25] MEDS: CHOLECALCIFEROL 1,000 UNITS 25 MCG TAB PO SCH (08:23)
[2019-12-25] MEDS: CYANOCOBALAMIN 500 MCG TABLET (VITAMIN B-12) PO SCH (08:23)
[2019-12-25] MEDS: CALCIUM 600MG + VIT D 400 IU TAB PO SCH (08:23)
[2019-12-25] MEDS: METOPROLOL SUCC 25MG EXT REL TAB PO SCH ×2 (08:23→20:45)
[2019-12-25] MEDS: CALCIUM ACETATE 667 MG CAP/TAB PO SCH ×3 (08:24→16:48)
--- NOTE | 2019-12-25 09:02 | Consultation ---
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 Would only intervene if the ulcer worsens and amputation is needed. Please call if needed. Thank you very much for letting us participate in the care of this patient. History of Present Illness Reason for Consultation: Right second toe ulcer Attending Physician: Tony Prieto MD History of Present Illness This is an 84yo male with peripheral artery occlusive disease. He has developed a right second toe ulcer and also has ulcers of his left great toe. He claims to have had a stent placed in his left leg years ago. He has an underlying history of severe pulmonary hypertension and cor pulmonale with acute on chronic biventricular heart failure presents now with gradual decompensation over the past several months. He claims to have leg pain in both legs but not associated with walking. He only walks around his house. He denies rest pain. Allergies Allergy/AdvReac Type Severity Reaction Status Date / Time yellow dye Allergy Unknown RASH Verified 12/20/19 19:48 Home Medications Home Medications Medication Instructions Recorded Confirmed Type aspirin 81 mg PO QPM 12/20/19 12/20/19 History calcitriol 0.5 mcg PO QAM 12/20/19 12/20/19 History calcium carb-D3-mag ox-zinc ox 1 tab PO QAM 12/20/19 12/20/19 History [Arslan Mag Zinc Plus D3] calcium carbonate-vitamin D3 2 cap PO QAM 12/20/19 12/20/19 History [Calcium 600 with Vitamin D3] cholecalciferol (vitamin D3) 25 mcg PO QAM 12/20/19 12/20/19 History [Vitamin D3] cyanocobalamin (vitamin B-12) 1,000 mcg PO QAM 12/20/19 12/20/19 History [Vitamin B-12] donepezil 10 mg PO HS 12/20/19 12/20/19 History furosemide 40 mg PO BID 12/20/19 12/20/19 History insulin aspart U-100 [Novolog See Rx Instructions .ROUTE .COMPLEX 12/20/19 12/20/19 History U-100 Insulin aspart] insulin glargine [Lantus U-100 8 unit SUBCUT HS 12/20/19 12/20/19 History Insulin] isosorbide mononitrate 60 mg PO QPM 12/20/19 12/20/19 History levothyroxine See Rx Instructions .ROUTE .COMPLEX 12/20/19 12/20/19 History lisinopril 5 mg PO QPM 12/20/19 12/20/19 History metoprolol succinate 25 mg PO HS 12/20/19 12/20/19 History omega-3 fatty acids-fish oil [Fish 1 cap PO QAM 12/20/19 12/20/19 History Oil] primidone 50 mg PO BID 12/20/19 12/20/19 History rosuvastatin 20 mg PO HS 12/20/19 12/20/19 History Patient History Medical History CHF (congestive heart failure) Hypothyroidism (acquired) Insulin dependent diabetes mellitus Social History Preferred Language: Azeri Communication Ability: Effective Surgical Territory Manager Required: No Beliefs That Will Affect Care: None Current Living Situation: Alone Other Information That Helps Us Care for You: No Feels Safe at Home: Yes Safety Concerns: Feels Safe At This Time Smoking Status: Former smoker Tobacco Cessation Education Requested by Patient: No Hx Alcohol Use: No Hx Substance Use: No Physical Exam Constitutional: well developed and well nourished Cardiovascular: Rate/Rhythm: regular rate and regular rhythm Vessels: femoral pulses present and radial pulses present; + posterior tibial pulses abnormal and + dorsalis pedis pulses abnormal Extremities: + edema (both lower extremities); + abnormal capillary refill (slightly decreased) Skin: + wound (small ulceration top of right second toe, no erythema surrouding it) very small superficial ulcers of left great toe Psychiatric: does have dementia Results & Data Vital Signs (Past 12 Hours) Vital Signs Temp Pulse Pulse Resp BP Pulse Ox 12/25/19 08:00 36.5 C 71 16 122/80 96 12/25/19 03:46 80 20 90 12/25/19 03:26 36.6 C 69 18 112/76 91 12/24/19 23:25 36.4 C L 85 84 20 120/79 90 12/24/19 23:20 86 20 90
[2019-12-25] MEDS: ALBUMIN 25% 50 ML with FUROSEMIDE 80 MG IV SCH ×3 (09:11→20:46)
--- NOTE | 2019-12-25 10:59 | Cardiology Progress Note ---
Date of Service December 25, 2019 Assessment & Plan (1) Biventricular congestive heart failure: Patient is an 84-year-old male with underlying history of severe pulmonary hypertension and cor pulmonale with acute on chronic biventricular heart failure presents now with gradual decompensation over the past several months. Weight is up greater than 30 pounds from last outpatient measurement in August 2019. Patient has noted gradually progressive edema bilateral extremities now extending up into the scrotum and lower abdomen. He denies any acute ischemic symptoms. Has been compliant per patient with medications and oxygen at home Recommendations: Continue IV diuretics with upward titration today to 80 mg 3 times daily furosemide with albumin. With patient making slow progress would continue. (2) COR (chronic cor pulmonale): O2 and CPAP dependent, continue Degree of pulmonary hypertension previously observed very severe approaching systemic (3) Anasarca: (4) RBBB: (5) CKD (chronic kidney disease) stage 3, GFR 30-59 ml/min: (6) CAD (coronary artery disease): No current anginal symptoms will reduce isosorbide mononitrate to 30 mg/day to allow slightly higher blood pressure/diuresis (7) Elevated troponin: Elevated secondary to renal insufficiency, chronic heart failure with flat response Subjective Patient was seen and examined, chart, medications, telemetry reviewed Appears brighter today patient pleased with progress. Less scrotal edema. Bowel movement this morning. Continues to diurese slowly with renal function stable to improved Physical Exam Eyes: PERRL, conjunctivae normal, anicteric sclerae ENMT: external ear and nose normal, oropharynx normal Neck: trachea midline, no thyromegaly Respiratory: Auscultation: + diminished lung sounds (Diffusely with minimal crackles basilar poor airflow) Cardiovascular: Rate/Rhythm: regular rate and regular rhythm (With frequent atrial ectopic beats) Palpation: + heave (Right ventricular heave palpable) Vessels: no carotid bruit Extremities: + edema (23+ lower extremity edema, improved) Gastrointestinal (Abdomen): Inspection/Auscultation: + abdomen distended and + abdominal edema Percussion/Palpation: abdomen soft Psychiatric: A+Ox3, euthymic affect Results & Data Vital Signs (Past 12 Hours) Vital Signs Temp Pulse Pulse Resp BP Pulse Ox 12/25/19 08:00 36.5 C 71 16 122/80 96 12/25/19 03:46 80 20 90 12/25/19 03:26 36.6 C 69 18 112/76 91 12/24/19 23:25 36.4 C L 85 84 20 120/79 90 12/24/19 23:20 86 20 90 Laboratory Results Laboratory Results - last 24 hr 12/24/19 12/24/19 12/24/19 11:14 16:34 20:11 WBC RBC Hgb Hct MCV MCH MCHC RDW Std Deviation RDW Coeff of Ricky Plt Count MPV Neutrophils % (Manual) Lymphocytes % (Manual) Reactive Lymphs % (Man) Monocytes % (Manual) Eosinophils % (Manual) Neutrophils # (Manual) Total Absolute Neuts Lymphocytes # (Manual) Reactive Lymphs # Total Abs Lymphocytes Monocytes # (Manual) Eosinophils # (Manual) Toxic Vacuolation Giant Platelets APTT PTT Ratio Sodium Potassium Chloride Carbon Dioxide Anion Gap BUN Creatinine Est Cr Clr Drug Dosing Est GFR ( Amer) Est GFR (Non-Af Amer) BUN/Creatinine Ratio Glucose POC Glucose 199 H 122 H 153 H Calcium Phosphorus Magnesium Total Bilirubin AST ALT Alkaline Phosphatase Total Protein Albumin Globulin Albumin/Globulin Ratio Blood Type Antibody Screen 12/25/19 12/25/19 12/25/19 05:21 05:21 05:21 WBC RBC Hgb Hct MCV MCH MCHC RDW Std Deviation RDW Coeff of Ricky Plt Count MPV Neutrophils % (Manual) Lymphocytes % (Manual) Reactive Lymphs % (Man) Monocytes % (Manual) Eosinophils % (Manual) Neutrophils # (Manual) Total Absolute Neuts Lymphocytes # (Manual) Reactive Lymphs # Total Abs Lymphocytes Monocytes # (Manual) Eosinophils # (Manual) Toxic Vacuolation Giant Platelets APTT 59.1 H* PTT Ratio 2.1 Sodium 141 Potassium 4.0 Chloride 100 Carbon Dioxide 32 Anion Gap 8.0 BUN 43 H Creatinine 1.77 H Est Cr Clr Drug Dosing 32.4 Est GFR ( Amer) 39.4 Est GFR (Non-Af Amer) 34.0 BUN/Creatinine Ratio 24.1 H Glucose 162 H POC Glucose Calcium 8.7 Phosphorus 3.6 Magnesium 2.3 Total Bilirubin 0.6 AST 16 ALT 15 Alkaline Phosphatase 66 Total Protein 6.4 Albumin 3.5 Globulin 2.9 Albumin/Globulin Ratio 1.2 Blood Type A Negative Antibody Screen NEGATIVE 12/25/19 05:21 WBC 5.04 RBC 4.40 L Hgb 14.1 Hct 44.1 MCV 100.2 H MCH 32.0 MCHC 32.0 RDW Std Deviation 62.1 H RDW Coeff of Ricky 17.4 H Plt Count 93 L MPV 11.8 H Neutrophils % (Manual) 65.2 Lymphocytes % (Manual) 13.0 Reactive Lymphs % (Man) 15.7 Monocytes % (Manual) 2.6 Eosinophils % (Manual) 3.5 Neutrophils # (Manual) 3.29 Total Absolute Neuts 3.29 Lymphocytes # (Manual) 0.66 L Reactive Lymphs # 0.79 Total Abs Lymphocytes 1.45 Monocytes # (Manual) 0.13 Eosinophils # (Manual) 0.18 Toxic Vacuolation 1+ Giant Platelets 1+ APTT PTT Ratio Sodium Potassium Chloride Carbon Dioxide Anion Gap BUN Creatinine Est Cr Clr Drug Dosing Est GFR ( Amer) Est GFR (Non-Af Amer) BUN/Creatinine Ratio Glucose POC Glucose Calcium Phosphorus Magnesium Total Bilirubin AST ALT Alkaline Phosphatase Total Protein Albumin Globulin Albumin/Globulin Ratio Blood Type Antibody Screen
--- NOTE | 2019-12-25 12:09 | Hospitalist Progress Note ---
Date of Service December 25, 2019 Assessment & Plan (1) Acute exacerbation of CHF (congestive heart failure): 84-year-old male with ongoing outpatient issues 1. Chronic right heart failure. 2. Severe pulmonary hypertension, cor pulmonale. 3. Hypoxemia and sleep apnea, treated with supplemental oxygen and CPAP therapy. 4. Ischemic cardiomyopathy with EF 45-49% 5. Chronic coronary artery disease. Cardiac catheterization in [place] on 08/15/2012: The left main was without significant obstruction. The patient was noted to have a 60% stenosis of the mid LAD, 60% stenosis the first obtuse marginal, and a 80% stenosis of the mid right coronary artery. There is also a 50% stenosis of the RPDA. He underwent PCI with drug-eluting stent to the mid RCA in the remaining disease has been managed medically. 6. Asymptomatic SVT and nonsustained ventricular tachycardia 7. History of tobacco abuse, ongoing snuff use. 8. COPD 9. Hypertension 10. Right bundle branch block 11. Type II diabetes mellitus. Followed by PCP 12. Chronic kidney disease 13. Dementia acute congestive heart failure (Biventricular congestive heart failure with chronic cor pulmonale) Coronary artery disease status post stent in the past elevated troponins -acute CHF exacerbation based on increased oxygen requirements at home,bilateral lower extremity edema and scrotal swelling, elevated BNP, CT chest: Cardiomegaly with pulmonary vascular congestion. ,Fluid overload manifested by trace left and moderate right pleural effusions with small volume of abdominal ascites and anasarca, Right lower lobe basilar consolidation suggests probable atelectasis. -no chest pain -metoprolol, statin, and aspirin. -ultrasound of lower extremities No DVT within the right or left lower extremity -albumin is mildly low as 2.9 -was given IV lasix on admission and IV Lasix with albumin being continued -cardiology consultation following the patient Bilateral lower extremity edema with redness perhaps from weeping drainage previously? 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) -was started on ceftriaxone in case any concern of cellulitis -there is a admission 1 of 2 blood culture with Coag neg staph not lugdunensis; unclear whether this is contaminant or not, repeat blood cultures drawing on 12/21/2019 finalized as no growth to date, toe culture with Staph aureus, continue ceftriaxone for now -12/20/2019: No DVT within the right or left lower extremity; 12/22/2019: wound care nurse obtained culture of an eschar of the toe on right foot and staph aureus -12/22/2019 wound care nurse also concerned for poor right pedal pulse; arterial ultrasound shows There are segments of complete thrombosis seen within the mid to distal superficial femoral artery and the popliteal artery. There is complete thrombosis of the peroneal artery; when discussed with patient about these unusual results, he reports he has stent in left leg and was told 1 year ago in [place] that he could have benefit from re-vascularization of right leg but unable to be done for possible technical reasons; his renal function does not feasibly allow for CTA of the right leg; started on IV heparin on 12/22/2019 -12/25/2019 IV heparin stopped and switched to subcutanous heparin, [facility] surgery service "At this time due to his medical condition, would treat the ulcer of his right foot conservatively. 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 Would only intervene if the ulcer worsens and amputation is needed." Scrotal swelling, penis swelling (anasarca) -diuresis -bladder scan qshift -scrotal ultrasound: Normal testis. Normal vascular flow to both testicles. Extensive bilateral scrotal wall edema. No evidence for drainable abscess or collection at this time Acute kidney injury on chronic kidney disease stage III -Baseline creatinine around 1.8 to 2, admission creatinine of 2.38. -follow the creatinine while with diuretics and albumin -recent creatinine on 12/25/2019 is 1.77 which suggest the IV lasix with albumin helping the renal function Hypertension - metoprolol as 12.5 mg BID -as per cardiology 12/23/2019: No current anginal symptoms will reduce isosorbide mononitrate to 30 mg/day to allow slightly higher blood pressure/diuresis History of chronic obstructive pulmonary disease and chronic respiratory failure, on oxygen -supplementary oxygen Obstructive sleep apnea -on CPAP Pulmonary nodules -CT chest: Numerous bilateral solid pulmonary nodules measure up to 4 mm, Prior granulomatous disease. Hypocalcemia, Osteoporosis -There are several ill-defined lucent lesions involving the vertebral bodies with an additional lucent lesion noted involving the anterior left fifth rib. -as per radiology "Correlation with skeletal survey radiographs recommended to evaluate for additional lesions. Primary differential considerations would include multiple lipoma versus lytic metastasis from unknown primary" -bone survey: Complete bone survey fails to demonstrate any significant additional lytic changes. Mild compression deformity superior endplate of L3 and L4 considered osteoporotic. 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 Deep venous thrombosis prophylaxis: heparin subcutaneous Admission and Anticipated Discharge Date Admission Date: December 20, 2019 Subjective Patient on baseline supplementary oxygen. he continues to have scrotal swelling and penile swelling. but he reports overall swelling has improved. off IV heparin at this time. no chest pain, no palpitations, no dizziness, no lightheadedness, no vomiting. eating the lunch. Review of Systems Review of Systems: All systems reviewed & are unremarkable except as noted in Subjective Physical Exam Constitutional: comfortable Eyes: PERRL, conjunctivae normal, anicteric sclerae EOM intact bilaterally ENMT: external ear and nose normal, oropharynx normal Neck: trachea midline, no thyromegaly normal visual inspection Respiratory: normal respiratory effort Cardiovascular: Rate/Rhythm: regular rate Gastrointestinal (Abdomen): normal bowel sounds, soft, nontender, no hepatosplenomegaly Neurologic: PERRL, EOMI, accommodation nl, no face palsy, no dysarthria Psychiatric: Orientation: alert and cooperative Genitourinary: + scrotum abnormality (scrotal and penile swelling) Results & Data Results & Data ([facility]) Vital Signs (Past 12 Hours) Vital Signs Temp Pulse Pulse Resp BP Pulse Ox 12/25/19 11:43 36.4 C L 77 20 120/65 95 12/25/19 08:00 36.5 C 71 16 122/80 96 12/25/19 03:46 80 20 90 12/25/19 03:26 36.6 C 69 18 112/76 91
[2019-12-25] MEDS: HEPARIN SOD 5,000 UNIT/0.5 ML VIAL SQ SCH (20:45)
[2019-12-25] MEDS: ISOSORBIDE MONO EXTENDED REL 30 MG TABCR PO SCH (20:45)
[2019-12-25] MEDS: ROSUVASTATIN CALCIUM 20 MG TAB PO SCH (20:46)
[2019-12-25] MEDS: DONEPEZIL HCL 10 MG TAB PO SCH (20:46)
[2019-12-25] MEDS: ASPIRIN 81 MG ECTAB PO SCH (20:46)
[2019-12-25] MEDS: INSULIN GLARGINE SOLOSTAR 100 UNITS/ML 3 ML PEN SC SCH (21:13)
[2019-12-26] MEDS: cefTRIAXone SODIUM 2,000 MG in DEXTROSE 5% 50 ML IV SCH
[2019-12-26] MEDS: LEVOTHYROXINE SODIUM 112 MCG TABLET PO SCH (05:35)
[2019-12-26 06:58] LABS: Hematocrit (blood only) 43.5 % (42-52); Hemoglobin 14.5 g/dL (14.0-18.0); Mean Corpuscular Hgb Conc 33.3 g/dL (32-36); Mean Corpuscular Volume 98.9 fL (80-100); Platelet Count 88 K/uL (130-400); RDW Coefficient of Variation 17.3 % (11.5-14.5); RDW Standard Deviation 60.8 fL (36.4-46.3); White Blood Count 5.41 K/uL (4.8-10.8)
[2019-12-26 06:59] LABS: ALC (manual) 1.55 K/uL (1.2-3.4); ANC (manual) 3.34 K/uL (1.4-6.5); Eosinophils # (manual) 0.09 K/uL (0-0.5); Eosinophils % (manual) 1.7 %; Lymphocytes # (manual) 0.89 K/uL (1.2-3.4); Lymphocytes % (manual) 16.5 %; Monocytes # (manual) 0.42 K/uL (0.11-0.59); Monocytes % (manual) 7.8 %; Neutrophils # (manual) 3.34 K/uL (1.4-6.5); Neutrophils % (manual) 61.8 %; RBC Morphology Unremarkable; Reactive Lymphocytes # (manual) 0.66 K/uL; Reactive Lymphocytes % (manual) 12.2 %
[2019-12-26 07:06] LABS: Albumin Level 3.7 gm/dl (3.4-5.0); BUN Creatinine Ratio 24.7 (10-20); Calcium 9.2 mg/dl (8.5-10.1); Creatinine Clr Calc Pharmacy 31.8 ml/min; Est GFR (African American) 38.6; Est GFR (Non-African American) 33.3
[2019-12-26 07:09] LABS: Albumin Globulin Ratio 1.4 (0.9-2); Bilirubin,Total 0.6 mg/dl (0.2-1); Globulin 2.7 gm/dl (2.5-4.0); Total Protein 6.4 gm/dl (6.4-8.2)
[2019-12-26] MEDS: INSULIN ASPART 100 UNITS/ML 3 ML PEN SC SCH ×4 (08:00→21:42)
[2019-12-26] MEDS: HEPARIN SOD 5,000 UNIT/0.5 ML VIAL SQ SCH ×2 (08:01→21:36)
[2019-12-26] MEDS: METOPROLOL SUCC 25MG EXT REL TAB PO SCH ×2 (08:03→21:38)
[2019-12-26] MEDS: CALCITRIOL 0.25 MCG CAPSULE PO SCH (08:04)
[2019-12-26] MEDS: CYANOCOBALAMIN 500 MCG TABLET (VITAMIN B-12) PO SCH (08:04)
[2019-12-26] MEDS: CALCIUM 600MG + VIT D 400 IU TAB PO SCH (08:04)
[2019-12-26] MEDS: CALCIUM ACETATE 667 MG CAP/TAB PO SCH ×2 (08:05→12:00)
[2019-12-26] MEDS: PRIMIDONE 50 MG TAB PO SCH ×2 (08:05→21:42)
[2019-12-26] MEDS: CHOLECALCIFEROL 1,000 UNITS 25 MCG TAB PO SCH (08:05)
[2019-12-26] MEDS: ALBUMIN 25% 50 ML with FUROSEMIDE 80 MG IV SCH ×3 (09:00→21:35)
--- NOTE | 2019-12-26 13:08 | Hospitalist Progress Note ---
Date of Service December 26, 2019 Assessment & Plan (1) Acute exacerbation of CHF (congestive heart failure): 84-year-old male with ongoing outpatient issues 1. Chronic right heart failure. 2. Severe pulmonary hypertension, cor pulmonale. 3. Hypoxemia and sleep apnea, treated with supplemental oxygen and CPAP therapy. 4. Ischemic cardiomyopathy with EF 45-49% 5. Chronic coronary artery disease. Cardiac catheterization in [place] on 08/15/2012: The left main was without significant obstruction. The patient was noted to have a 60% stenosis of the mid LAD, 60% stenosis the first obtuse marginal, and a 80% stenosis of the mid right coronary artery. There is also a 50% stenosis of the RPDA. He underwent PCI with drug-eluting stent to the mid RCA in the remaining disease has been managed medically. 6. Asymptomatic SVT and nonsustained ventricular tachycardia 7. History of tobacco abuse, ongoing snuff use. 8. COPD 9. Hypertension 10. Right bundle branch block 11. Type II diabetes mellitus. Followed by PCP 12. Chronic kidney disease 13. Dementia acute congestive heart failure (Biventricular congestive heart failure with chronic cor pulmonale) Coronary artery disease status post stent in the past elevated troponins -acute CHF exacerbation based on increased oxygen requirements at home,bilateral lower extremity edema and scrotal swelling, elevated BNP, CT chest: Cardiomegaly with pulmonary vascular congestion. ,Fluid overload manifested by trace left and moderate right pleural effusions with small volume of abdominal ascites and anasarca, Right lower lobe basilar consolidation suggests probable atelectasis. -no chest pain -metoprolol, statin, and aspirin. -ultrasound of lower extremities No DVT within the right or left lower extremity -albumin is mildly low as 2.9 -was given IV lasix on admission and IV Lasix with albumin being continued -12/26/2019 cardiology consultation following the patient and Dr. Carballo reports likely to stop the IV Lasix with albumin by end of 12/26/2019 as patient's overall edema of scrotum improving and creatinine now rising to 1.8 Scrotal swelling, penis swelling (anasarca) -scrotal ultrasound: Normal testis. Normal vascular flow to both testicles. Extensive bilateral scrotal wall edema. No evidence for drainable abscess or collection at this time -improving Acute kidney injury on chronic kidney disease stage III -Baseline creatinine around 1.8 to 2, admission creatinine of 2.38. -creatinine decrease on this admission with recent rising to 1.8 Bilateral lower extremity edema with redness perhaps from weeping drainage previously? 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) -was started on ceftriaxone in case any concern of cellulitis -there is a admission 1 of 2 blood culture with Coag neg staph not lugdunensis; unclear whether this is contaminant or not, repeat blood cultures drawing on 12/21/2019 finalized as no growth, toe culture with Staph aureus -12/20/2019: No DVT within the right or left lower extremity; 12/22/2019: wound care nurse obtained culture of an eschar of the toe on right foot and staph aureus -12/22/2019 wound care nurse also concerned for poor right pedal pulse; arterial ultrasound shows There are segments of complete thrombosis seen within the mid to distal superficial femoral artery and the popliteal artery. There is complete thrombosis of the peroneal artery; when discussed with patient about these unusual results, he reports he has stent in left leg and was told 1 year ago in [place] that he could have benefit from re-vascularization of right leg but unable to be done for possible technical reasons; his renal function does not feasibly allow for CTA of the right leg; started on IV heparin on 12/22/2019 -12/25/2019 IV heparin stopped and switched to subcutanous heparin, [facility] vascular surgery service "At this time due to his medical condition, would treat the ulcer of his right foot conservatively. 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 Would only intervene if the ulcer worsens and amputation is needed." -12/26/2019: continuing ceftriaxone while inpatient but antibiotics likely can be stopped when ready for hospital discharge Hypertension - metoprolol as 12.5 mg BID -as per cardiology 12/23/2019: No current anginal symptoms will reduce isosorbide mononitrate to 30 mg/day to allow slightly higher blood pressure/diuresis History of chronic obstructive pulmonary disease and chronic respiratory failure, on oxygen -supplementary oxygen is at baseline currently Obstructive sleep apnea -on CPAP Pulmonary nodules -CT chest: Numerous bilateral solid pulmonary nodules measure up to 4 mm, Prior granulomatous disease. Hypocalcemia, Osteoporosis -There are several ill-defined lucent lesions involving the vertebral bodies with an additional lucent lesion noted involving the anterior left fifth rib. -as per radiology "Correlation with skeletal survey radiographs recommended to evaluate for additional lesions. Primary differential considerations would include multiple lipoma versus lytic metastasis from unknown primary" -bone survey: Complete bone survey fails to demonstrate any significant additional lytic changes. Mild compression deformity superior endplate of L3 and L4 considered osteoporotic. 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 Deep venous thrombosis prophylaxis: heparin subcutaneous Case management issues: hospital discussed with patient that he is sedentary in the hospital. He reports that he prefers to be discharged to home when medically ready Admission and Anticipated Discharge Date Admission Date: December 20, 2019 Subjective No acute distress. on baseline supplementary oxygen. no acute shortness of breath. no headache. no dizziness. no nausea. I discussed with patient that he is sedentary in the hospital. He reports that he prefers to be discharged to home when medically ready Review of Systems Review of Systems: All systems reviewed & are unremarkable except as noted in Subjective Physical Exam Constitutional: comfortable Eyes: PERRL, conjunctivae normal, anicteric sclerae EOM intact bilaterally ENMT: external ear and nose normal, oropharynx normal Neck: trachea midline, no thyromegaly normal visual inspection Respiratory: normal respiratory effort Cardiovascular: Rate/Rhythm: regular rate Gastrointestinal (Abdomen): normal bowel sounds, soft, nontender, no hepatosplenomegaly Neurologic: PERRL, EOMI, accommodation nl, no face palsy, no dysarthria Psychiatric: Orientation: alert and cooperative Genitourinary: + scrotum abnormality (scrotal and penile swelling) Results & Data Results & Data ([facility]) Vital Signs (Past 12 Hours) Vital Signs Temp Pulse Pulse Resp BP Pulse Ox 12/26/19 12:00 36.8 C 60 18 122/80 95 12/26/19 07:50 36.5 C 86 18 131/60 97 12/26/19 03:39 36.3 C L 85 16 120/71 90 07/14/20 02:25 74 20 93
--- NOTE | 2019-12-26 14:31 | Cardiology Progress Note ---
Date of Service December 26, 2019 Assessment & Plan (1) Biventricular congestive heart failure: Patient is an 84-year-old male with underlying history of severe pulmonary hypertension and cor pulmonale with acute on chronic biventricular heart failure presents now with gradual decompensation over the past several months. Weight is up greater than 30 pounds from last outpatient measurement in August 2019. Patient has noted gradually progressive edema bilateral extremities now extending up into the scrotum and lower abdomen. He denies any acute ischemic symptoms. Has been compliant per patient with medications and oxygen at home Recommendations: Patient has responded to IV diuretics will hold after p.m. dose this evening given slight increase in renal dysfunction, likely transition to oral diuretics in a.m. continue all current other therapies as prescribed (2) COR (chronic cor pulmonale): O2 and CPAP dependent, continue Degree of pulmonary hypertension previously observed very severe approaching systemic (3) Anasarca: (4) RBBB: (5) CKD (chronic kidney disease) stage 3, GFR 30-59 ml/min: (6) CAD (coronary artery disease): No current anginal symptoms sanket reduce isosorbide mononitrate to 30 mg/day to allow slightly higher blood pressure/diuresis (7) Elevated troponin: Elevated secondary to renal insufficiency, chronic heart failure with flat response Subjective Patient was seen and examined, chart, medications, telemetry reviewed Slow but steady improvement less lower extremity edema. No acute complaints. No arrhythmias Physical Exam Eyes: PERRL, conjunctivae normal, anicteric sclerae ENMT: external ear and nose normal, oropharynx normal Neck: trachea midline, no thyromegaly Respiratory: Auscultation: + diminished lung sounds (Diffusely with minimal crackles basilar poor airflow) Cardiovascular: Rate/Rhythm: regular rate and regular rhythm (With frequent atrial ectopic beats) Palpation: + heave (Right ventricular heave palpable) Vessels: no carotid bruit Extremities: + edema (2+lower extremity edema, improved with chronic ruborous changes) Gastrointestinal (Abdomen): Inspection/Auscultation: + abdomen distended and + abdominal edema Percussion/Palpation: abdomen soft Psychiatric: A+Ox3, euthymic affect Results & Data Vital Signs (Past 12 Hours) Vital Signs Temp Pulse Pulse Resp BP Pulse Ox 12/26/19 12:00 36.8 C 60 18 122/80 95 07/14/20 08:00 80 12/26/19 07:50 36.5 C 86 18 131/60 97 12/26/19 03:39 36.3 C L 85 16 120/71 90 Laboratory Results Laboratory Results - last 24 hr 12/25/19 12/25/19 12/26/19 16:18 20:23 06:05 WBC 5.41 RBC 4.40 L Hgb 14.5 Hct 43.5 MCV 98.9 MCH 33.0 MCHC 33.3 RDW Std Deviation 60.8 H RDW Coeff of Ricky 17.3 H Plt Count 88 L MPV 12.0 H Neutrophils % (Manual) 61.8 Lymphocytes % (Manual) 16.5 Reactive Lymphs % (Man) 12.2 Monocytes % (Manual) 7.8 Eosinophils % (Manual) 1.7 Neutrophils # (Manual) 3.34 Total Absolute Neuts 3.34 Lymphocytes # (Manual) 0.89 L Reactive Lymphs # 0.66 Total Abs Lymphocytes 1.55 Monocytes # (Manual) 0.42 Eosinophils # (Manual) 0.09 RBC Morphology Unremarkable Sodium Potassium Chloride Carbon Dioxide Anion Gap BUN Creatinine Est Cr Clr Drug Dosing Est GFR ( Amer) Est GFR (Non-Af Amer) BUN/Creatinine Ratio Glucose POC Glucose 167 H 221 H Calcium Total Bilirubin AST ALT Alkaline Phosphatase Total Protein Albumin Globulin Albumin/Globulin Ratio 12/26/19 12/26/19 12/26/19 06:05 07:26 11:20 WBC RBC Hgb Hct MCV MCH MCHC RDW Std Deviation RDW Coeff of Ricky Plt Count MPV Neutrophils % (Manual) Lymphocytes % (Manual) Reactive Lymphs % (Man) Monocytes % (Manual) Eosinophils % (Manual) Neutrophils # (Manual) Total Absolute Neuts Lymphocytes # (Manual) Reactive Lymphs # Total Abs Lymphocytes Monocytes # (Manual) Eosinophils # (Manual) RBC Morphology Sodium 140 Potassium 4.0 Chloride 99 Carbon Dioxide 34 H Anion Gap 7.0 BUN 44 H Creatinine 1.80 H Est Cr Clr Drug Dosing 31.8 Est GFR ( Amer) 38.6 Est GFR (Non-Af Amer) 33.3 BUN/Creatinine Ratio 24.7 H Glucose 161 H POC Glucose 184 H 191 H Calcium 9.2 Total Bilirubin 0.6 AST 21 ALT 17 Alkaline Phosphatase 67 Total Protein 6.4 Albumin 3.7 Globulin 2.7 Albumin/Globulin Ratio 1.4
[2019-12-26] MEDS: ROSUVASTATIN CALCIUM 20 MG TAB PO SCH (21:35)
[2019-12-26] MEDS: ISOSORBIDE MONO EXTENDED REL 30 MG TABCR PO SCH (21:38)
[2019-12-26] MEDS: DONEPEZIL HCL 10 MG TAB PO SCH (21:39)
[2019-12-26] MEDS: ASPIRIN 81 MG ECTAB PO SCH (21:39)
[2019-12-26] MEDS: INSULIN GLARGINE SOLOSTAR 100 UNITS/ML 3 ML PEN SC SCH (21:40)
[2019-12-27] MEDS: cefTRIAXone SODIUM 2,000 MG in DEXTROSE 5% 50 ML IV SCH ×2 (00:49→23:19)
[2019-12-27] MEDS: LEVOTHYROXINE SODIUM 112 MCG TABLET PO SCH (06:20)
[2019-12-27] MEDS: INSULIN ASPART 100 UNITS/ML 3 ML PEN SC SCH ×4 (08:02→21:02)
[2019-12-27] MEDS: HEPARIN SOD 5,000 UNIT/0.5 ML VIAL SQ SCH ×2 (08:03→20:49)
[2019-12-27] MEDS: PRIMIDONE 50 MG TAB PO SCH ×2 (08:04→20:49)
[2019-12-27] MEDS: METOPROLOL SUCC 25MG EXT REL TAB PO SCH ×2 (08:05→20:48)
[2019-12-27] MEDS: CALCITRIOL 0.25 MCG CAPSULE PO SCH (08:05)
[2019-12-27] MEDS: CYANOCOBALAMIN 500 MCG TABLET (VITAMIN B-12) PO SCH (08:05)
[2019-12-27] MEDS: CHOLECALCIFEROL 1,000 UNITS 25 MCG TAB PO SCH (08:06)
[2019-12-27] MEDS: ALBUMIN 25% 50 ML with FUROSEMIDE 80 MG IV SCH (08:36)
--- NOTE | 2019-12-27 09:20 | Cardiology Progress Note ---
Date of Service December 27, 2019 Assessment & Plan (1) COR (chronic cor pulmonale): Very severe pulmonary hypertension, O2 and CPAP dependent. 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 Would initiate oral diuretics today, with Torsemide, and assess response. If all goes well would consider discharge tomorrow with very close clinical follow-up in [place]. Supervising Physician Co-Signing Physician Notes Patient seen and examined, chart, medications, telemetry reviewed Agree with the assessment and plan as above. Patient has made slow steady but progressive improvement with stable renal function. Diuretics to be converted to oral with ultimate goal further management as an outpatient Ronald Carballo MD Subjective Patient seen and examined. Inpatient and outpatient chart, medications, and telemetry reviewed. Telemetry reveals sinus rhythm with a first degree AV block in the 80's, atrial and ventricular ectopy, rare couplets Presented with anasarca - acute on chronic dyspnea, abdominal distention, marked penile/scrotal edema, bilateral lower extremity edema. Moderate improvement noted with IV diuresis though abdominal distention, penile/scrotal edema, and some lower extremity edema persist. Weight is down 5.5 kilograms since admission. No chest pain. No palpitations. Review of Systems Review of Systems: All systems reviewed & are unremarkable except as noted in HPI & below Physical Exam Physical Exam: General: A&Ox3. NAD. DOUGLAS. Mouth: Very poor dentition. HEENT: Normocephalic. Atraumatic. PER. Conjunctiva pink, sclera clear. Neck: No carotid bruits. +JVD. Heart: Irregular. + Gallop. Soft systolic murmur. No diastolic murmur. No rub. Lungs: Diminished throughout however clear to auscultation. Abdomen: +BS. Distended. Somewhat firm. + Penile/scrotal edema Extremities: Mild peripheral edema. Mild erythema. Stasis changes. No clubbing. No cyanosis. Limited neurological examination: Left greater than right upper extremity tremor Results & Data Vital Signs (Past 12 Hours) Vital Signs Temp Pulse Pulse Resp BP Pulse Ox 12/27/19 08:20 36.4 C L 64 20 106/57 L 94 12/27/19 04:06 75 18 90 12/27/19 03:46 36.6 C 73 20 122/70 90 12/27/19 00:41 97 H 12/26/19 23:58 36.5 C 90 16 150/89 H 88 L 12/26/19 23:08 90 18 91 Laboratory Results Laboratory Results - last 24 hr 12/26/19 12/26/19 12/26/19 11:20 16:06 20:15 Sodium Potassium Chloride Carbon Dioxide Anion Gap BUN Creatinine Est Cr Clr Drug Dosing Est GFR ( Amer) Est GFR (Non-Af Amer) BUN/Creatinine Ratio Glucose POC Glucose 191 H 182 H 222 H Calcium 12/27/19 09:13 Sodium Pending Potassium Pending Chloride Pending Carbon Dioxide Pending Anion Gap Pending BUN Pending Creatinine Pending Est Cr Clr Drug Dosing Pending Est GFR ( Amer) Pending Est GFR (Non-Af Amer) Pending BUN/Creatinine Ratio Pending Glucose Pending POC Glucose Calcium Pending
[2019-12-27 10:40] LABS: BUN Creatinine Ratio 24.1 (10-20); Calcium 9.7 mg/dl (8.5-10.1); Creatinine Clr Calc Pharmacy 31.7 ml/min; Est GFR (African American) 38.6; Est GFR (Non-African American) 33.3; Potassium 3.9 mmol/L (3.5-5.1)
--- NOTE | 2019-12-27 18:09 | Hospitalist Progress Note ---
Date of Service December 27, 2019 Assessment & Plan (1) Acute exacerbation of CHF (congestive heart failure): 84-year-old male with ongoing outpatient issues 1. Chronic right heart failure. 2. Severe pulmonary hypertension, cor pulmonale. 3. Hypoxemia and sleep apnea, treated with supplemental oxygen and CPAP therapy. 4. Ischemic cardiomyopathy with EF 45-49% 5. Chronic coronary artery disease. Cardiac catheterization in [place] on 08/15/2012: The left main was without significant obstruction. The patient was noted to have a 60% stenosis of the mid LAD, 60% stenosis the first obtuse marginal, and a 80% stenosis of the mid right coronary artery. There is also a 50% stenosis of the RPDA. He underwent PCI with drug-eluting stent to the mid RCA in the remaining disease has been managed medically. 6. Asymptomatic SVT and nonsustained ventricular tachycardia 7. History of tobacco abuse, ongoing snuff use. 8. COPD 9. Hypertension 10. Right bundle branch block 11. Type II diabetes mellitus. Followed by PCP 12. Chronic kidney disease 13. Dementia Acute congestive heart failure (Biventricular congestive heart failure with chronic cor pulmonale) Coronary artery disease status post stent -- diuresing slowly, improving Lasix IV changed to Torsemide Scrotal swelling, penis swelling (anasarca) per Dr. Tony Prieto's notes: -scrotal ultrasound: Normal testis. Normal vascular flow to both testicles. Extensive bilateral scrotal wall edema. No evidence for drainable abscess or collection at this time -improving Acute kidney injury on chronic kidney disease stage III -Baseline creatinine around 1.8 to 2, admission creatinine of 2.38. - crea now stable at 1.8 Bilateral lower extremity edema with redness perhaps from weeping drainage previously? 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 Would only intervene if the ulcer worsens and amputation is needed." - continue Ceftriaxone Hypertension per Dr. Tony Prieto's notes: - metoprolol as 12.5 mg BID -as per cardiology 12/23/2019: No current anginal symptoms will reduce isosorbide mononitrate to 30 mg/day to allow slightly higher blood pressure/diuresis - BP improving History of chronic obstructive pulmonary disease and chronic respiratory f ailure, on oxygen -supplementary oxygen is at baseline currently Obstructive sleep apnea -on CPAP Pulmonary nodules -CT chest: Numerous bilateral solid pulmonary nodules measure up to 4 mm, Prior granulomatous disease. Hypocalcemia, Osteoporosis - stopping calcium supplements on 12/26/2019 as calcium improved Thrombocytopenia, mild -stable around 90K Type 2 diabetes mellitus with fdc current use of insulin - continue home Lantus, on insulin sliding scale,HbA1c levels 8.5 Hypothyroidism -Continue Synthroid. Deep venous thrombosis prophylaxis: heparin subcutaneous Disposition: pending OT recommends inpatient Rehab PT pending Admission and Anticipated Discharge Date Admission Date: December 20, 2019 Subjective ff up for CHF exacerbation seen sitting up in bed, comfortable states he feels fine overall denies SOB, chest, pain, palpitations no problems with urination denies pain no other symptoms Review of Systems Review of Systems: All systems reviewed & are unremarkable except as noted in HPI & below Physical Exam Physical Exam: General- oriented x 3, not in distress, speaks in sentences with no effort or accessory muscle use Eyes- anicteric Neck- no JVD Lungs- mild rales at the bases, no wheezing Heart- normal rate, regular rhythm; no murmurs Abdomen- normal bowel sounds, nondistended, soft, nontender (+) mild-moderate scrotal edema Extremities- (+) grade 1-2 lower leg edema (+) very dry skin bilaterally erythema on the right lower leg no tenderness, warmth Neuro- alert, oriented x 3; no gross focal neurologic deficits Skin- warm & dry Results & Data Results & Data ([facility]) Vital Signs (Past 12 Hours) Vital Signs Temp Pulse Pulse Resp BP BP Pulse Ox 12/27/19 17:03 85 12/27/19 15:32 36.4 C L 81 24 107/71 98 12/27/19 12:10 36.4 C L 89 19 123/74 94 12/27/19 08:20 36.4 C L 64 20 106/57 L 94 12/27/19 07:00 83 Laboratory Results Laboratory Results - last 24 hr 12/26/19 12/27/19 12/27/19 20:15 07:30 09:13 Sodium 141 Potassium 3.9 Chloride 99 Carbon Dioxide 36 H Anion Gap 6.0 BUN 43 H Creatinine 1.80 H Est Cr Clr Drug Dosing 31.7 Est GFR ( Amer) 38.6 Est GFR (Non-Af Amer) 33.3 BUN/Creatinine Ratio 24.1 H Glucose 255 H POC Glucose 222 H 188 H Calcium 9.7 12/27/19 12/27/19 11:29 16:20 Sodium Potassium Chloride Carbon Dioxide Anion Gap BUN Creatinine Est Cr Clr Drug Dosing Est GFR ( Amer) Est GFR (Non-Af Amer) BUN/Creatinine Ratio Glucose POC Glucose 301 H* 166 H Calcium
[2019-12-27] MEDS: TORSEMIDE 10 MG TAB PO SCH (20:47)
[2019-12-27] MEDS: DONEPEZIL HCL 10 MG TAB PO SCH (20:47)
[2019-12-27] MEDS: ISOSORBIDE MONO EXTENDED REL 30 MG TABCR PO SCH (20:49)
[2019-12-27] MEDS: ASPIRIN 81 MG ECTAB PO SCH (20:50)
[2019-12-27] MEDS: ROSUVASTATIN CALCIUM 20 MG TAB PO SCH (20:50)
[2019-12-27] MEDS: INSULIN GLARGINE SOLOSTAR 100 UNITS/ML 3 ML PEN SC SCH (20:50)
[2019-12-28] MEDS: LEVOTHYROXINE SODIUM 112 MCG TABLET PO SCH (05:57)
[2019-12-28] MEDS: INSULIN ASPART 100 UNITS/ML 3 ML PEN SC SCH ×4 (07:52→20:30)
[2019-12-28] MEDS: HEPARIN SOD 5,000 UNIT/0.5 ML VIAL SQ SCH ×2 (07:53→20:30)
[2019-12-28] MEDS: CHOLECALCIFEROL 1,000 UNITS 25 MCG TAB PO SCH (08:10)
[2019-12-28] MEDS: METOPROLOL SUCC 25MG EXT REL TAB PO SCH ×2 (08:11→20:32)
[2019-12-28] MEDS: CYANOCOBALAMIN 500 MCG TABLET (VITAMIN B-12) PO SCH (08:11)
[2019-12-28] MEDS: PRIMIDONE 50 MG TAB PO SCH ×2 (08:11→20:31)
[2019-12-28] MEDS: CALCITRIOL 0.25 MCG CAPSULE PO SCH (08:12)
[2019-12-28] MEDS: TORSEMIDE 10 MG TAB PO SCH ×2 (08:13→20:29)
--- NOTE | 2019-12-28 10:14 | Cardiology Progress Note ---
Date of Service December 28, 2019 Assessment & Plan (1) COR (chronic cor pulmonale): Very severe pulmonary hypertension, O2 and CPAP dependent. (2) Anasarca: (3) CKD (chronic kidney disease) stage 3, GFR 30-59 ml/min: (4) Right heart failure due to pulmonary hypertension: (5) Biventricular congestive heart failure: (6) Acute exacerbation of CHF (congestive heart failure): Improving right heart failure signs and symptoms. Oral Torsemide initiated in the evening of 12/27/2019 with patient reporting increased diuresis, overall improvement. OK for discharge today. Very close clinical follow-up in [place] to be arranged Notes: Furosemide 60 AM/40 PM changed to Torsemide 40 AM/20 PM Imdur decreased from 60 mg/day to 30 mg/day Metoprolol succinated changed from 25 mg QHS to 12.5 mg twice a day. Lisinopril 5 mg/day discontinued Continue ASA 81 mg/day and rosuvastatin 20 mg at bedtime Supervising Physician Co-Signing Physician Notes Patient seen and examined personally chart medications telemetry reviewed. Agree with plan of management as well outlined above. Close clinical follow-up arranged as an outpatient Subjective Patient seen and examined. Chart, medications, and telemetry reviewed. Mr. Cullen notes increased urination with initiation of torsemide, less abdominal bloating, less penile/scrotal edema, and less peripheral edema compared to yesterday. Breathing is stable. He denies chest pain. He denies palpitations. No dizziness or near syncope. No fevers or chills. Telemetry: Sinus in the 80's with frequent PVC's as singles, bigeminy, couplets, and a handful of three beat runs. Review of Systems Review of Systems: All systems reviewed & are unremarkable except as noted in HPI & below Physical Exam Physical Exam: General: A&Ox3. NAD. ELEM. Mouth: Poor dentition. HEENT: Normocephalic. Atraumatic. PER. Conjunctiva pink, sclera clear. Neck: No carotid bruits. +JVD. Heart: Irregular. + Gallop. Soft systolic murmur. No diastolic murmur. No rub. Lungs: Diminished throughout however clear to auscultation. Abdomen: +BS. Distended. Less firm. Less penile/scrotal edema Extremities: Mild right greater than left lower extremity peripheral edema. Dressing on the right peck. Mild erythema. Stasis changes. No overt cellulitis. No clubbing. No cyanosis. Limited neurological examination: Left greater than right upper extremity tremor Results & Data Vital Signs (Past 12 Hours) Vital Signs Temp Pulse Pulse Resp BP BP Pulse Ox 12/28/19 07:44 36.3 C L 88 16 113/82 95 12/28/19 04:27 36.5 C 81 18 118/74 92 12/28/19 03:21 81 20 89 L 12/27/19 23:54 36.7 C 79 18 116/64 90 12/27/19 23:05 83 26 H 94 Laboratory Results Laboratory Results - last 24 hr 12/27/19 12/27/19 12/27/19 07:30 09:13 11:29 Sodium 141 Potassium 3.9 Chloride 99 Carbon Dioxide 36 H Anion Gap 6.0 BUN 43 H Creatinine 1.80 H Est Cr Clr Drug Dosing 31.7 Est GFR ( Amer) 38.6 Est GFR (Non-Af Amer) 33.3 BUN/Creatinine Ratio 24.1 H Glucose 255 H POC Glucose 188 H 301 H* Calcium 9.7 12/27/19 12/27/19 12/28/19 16:20 20:39 07:40 Sodium Potassium Chloride Carbon Dioxide Anion Gap BUN Creatinine Est Cr Clr Drug Dosing Est GFR ( Amer) Est GFR (Non-Af Amer) BUN/Creatinine Ratio Glucose POC Glucose 166 H 161 H 229 H Calcium 12/28/19 09:50 Sodium Pending Potassium Pending Chloride Pending Carbon Dioxide Pending Anion Gap Pending BUN Pending Creatinine Pending Est Cr Clr Drug Dosing Pending Est GFR ( Amer) Pending Est GFR (Non-Af Amer) Pending BUN/Creatinine Ratio Pending Glucose Pending POC Glucose Calcium Pending
[2019-12-28 10:39] LABS: BUN Creatinine Ratio 24.3 (10-20); Calcium 9.3 mg/dl (8.5-10.1); Creatinine Clr Calc Pharmacy 30.4 ml/min; Est GFR (African American) 37.1; Potassium 4.1 mmol/L (3.5-5.1)
[2019-12-28] MEDS ORDERED: PHARMACY GLYCEMIC MGMT CONSULT PRN (10:44)
[2019-12-28 11:03] LABS: Beta-Hydroxybutyrate 1.55 mg/dl (0.2-2.81)
--- NOTE | 2019-12-28 11:07 | Pharmacy Report ---
Glycemic Control Consultation - Date of Service December 28, 2019 - Scope Scope: Glycemic Pharmacist consulted for glycemic control and to write orders per [facility] inpatient glycemic control protocol. - Objective Weight: 92.9 kg Accuchecks BSG (last 24hrs): 12/27/19 12/27/19 12/27/19 07:30 11:29 16:20 Glucose POC Glucose 188 H 301 H* 166 H 12/27/19 12/28/19 12/28/19 20:39 07:40 09:50 Glucose 320 H* POC Glucose 161 H 229 H Laboratory Data (last 24hrs): 12/28/19 09:50 Potassium 4.1 Carbon Dioxide 35 H Anion Gap 8.0 Creatinine 1.86 H Est Cr Clr Drug Dosing 30.4 HbA1c: Hemoglobin A1c 8.5 % (4.5-5.6) H 12/21/19 05:29 - Recent Pertinent Medications Outpatient Anti-diabetic Regimen: * Lantus 8 units HS * A1c = 8.5 % 12/20 The patient is currently receiving: * Basal insulin: Lantus 8 units every hs hours * Correctional Insulin: Novolog Correction per scale ACHS Goal Range: Low 120 mg/dL - High 150 mg/dL Correction Factor: 30 mg/dL/unit * Prandial insulin: Per carb ratio of 1 unit per 10 grams CHO consumed Risk Factors for Insulin Resistance: * Diet: t2dm - Assessment & Plan Assessment & Plan: ASSESSMENT: * 84 year old admitted with heart failure. PMHx significant for pulmonary hypertension, CAD, COPD, htn, Type 2 diabetes, CKD * Pharmacy consulted for glycemic control - BSGs over last couple of days 160s- 200s * Fasting BSGs >180 last 2 days, plan to increase basal insulin for HS * BSGs throughout the day also elevated - appears patient needs more correctional insulin, therefore will tighten CF PLAN FOR INPATIENT GLYCEMIC CONTROL: * Basal insulin - increase * Lantus 12 units start now, then Qam * Bolus insulin * NovoLog per scale ACHS or Q6hrs while NPO * Goal Range: Low 110 mg/dL - High 150 mg/dL * Correction Factor: 25 mg/dL/unit * Nutritional / Prandial insulin per carb ratio of 1 unit per 10 grams CHO consumed * Please note that the plan above was derived based on current level of insulin resistance and hospital stress. These recommendations are appropriate for inpatient admission only. Plan of care upon discharge will need to be reassessed to avoid potential outpatient hypo/hyperglycemia. Thank you.
[2019-12-28] MEDS: INSULIN GLARGINE SOLOSTAR 100 UNITS/ML 3 ML PEN SC SCH (12:19)
--- NOTE | 2019-12-28 20:10 | Hospitalist Progress Note ---
Date of Service December 28, 2019 Assessment & Plan (1) Acute exacerbation of CHF (congestive heart failure): 84-year-old male with history of chronic congestive heart failure with cor pulmonale, diabetes, hypertension, CKD stage III, chronic hypoxic respiratory failure, COPD And other problems noted below presenting with CHF exacerbation. Acute congestive heart failure (Biventricular congestive heart failure with chronic cor pulmonale) Coronary artery disease status post stent --Patient gradually improved Lasix IV changed to Torsemide p.o. twice a day Scrotal swelling, penis swelling (anasarca) per Dr. Tony Prieto's notes: -scrotal ultrasound: Normal testis. Normal vascular flow to both testicles. Extensive bilateral scrotal wall edema. No evidence for drainable abscess or collection at this time -improving as well Acute kidney injury on chronic kidney disease stage III -Baseline creatinine around 1.8 to 2, admission creatinine of 2.38. - crea now stable at 1.8 Bilateral lower extremity edema with redness perhaps from weeping drainage previously? 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 Would only intervene if the ulcer worsens and amputation is needed." -Completed 7 days of ceftriaxone IV Continue to monitor Hypertension per Dr. Tony Prieto's notes: - metoprolol as 12.5 mg BID -as per cardiology 12/23/2019: No current anginal symptoms will reduce isosorbide mononitrate to 30 mg/day to allow slightly higher blood pressure/diuresis - BP improving History of chronic obstructive pulmonary disease and chronic respiratory failure, on oxygen -supplementary oxygen is at baseline currently which is 3 to 4 L by nasal cannula Obstructive sleep apnea -on CPAP Pulmonary nodules -CT chest: Numerous bilateral solid pulmonary nodules measure up to 4 mm, Prior granulomatous disease. 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 Deep venous thrombosis prophylaxis: heparin subcutaneous Disposition: PT and OT recommending inpatient rehab Patient declines despite extensive explanation including risks involved including falls and injuries, he is accepting and understanding of these risks Discussed with patient's daughter over the phone, in detail at length Questions were answered She is understanding, agreeable, comfortable plan of care Plan to discharge to home with home with services including PT OT tomorrow Admission and Anticipated Discharge Date Admission Date: December 20, 2019 Subjective Follow-up for CHF exacerbation Seen sitting up in bedside chair, comfortable, not in distress States he feels fine overall today Denies shortness of breath, chest pain, alterations, dizziness Denies leg pain No other symptoms Review of Systems Review of Systems: All systems reviewed & are unremarkable except as noted in HPI & below Physical Exam Physical Exam: General- oriented x 3, not in distress, speaks in sentences with no effort or accessory muscle use Eyes- anicteric Neck- no JVD Lungs-very mild rales at the bases, no wheezing, good air entry bilaterally Heart- normal rate, regular rhythm; no murmurs Abdomen- normal bowel sounds, nondistended, soft, nontender Extremities-positive grade 1 lower leg edema, with very dry skin, and mild erythema, no warmth or tenderness Neuro- alert, oriented x 3; no gross focal neurologic deficits Skin- warm & dry Results & Data Results & Data ([facility]) Vital Signs (Past 12 Hours) Vital Signs Temp Pulse Pulse Resp BP Pulse Ox 12/28/19 16:00 81 12/28/19 15:30 36.4 C L 80 19 126/66 96 12/28/19 13:08 36.6 C 91 H 20 109/67 98 Laboratory Results Laboratory Results - last 24 hr 12/27/19 12/28/19 12/28/19 20:39 07:40 09:50 Sodium 140 Potassium 4.1 Chloride 97 L Carbon Dioxide 35 H Anion Gap 8.0 BUN 45 H Creatinine 1.86 H Est Cr Clr Drug Dosing 30.4 Est GFR ( Amer) 37.1 Est GFR (Non-Af Amer) 32.0 BUN/Creatinine Ratio 24.3 H Glucose 320 H* POC Glucose 161 H 229 H Calcium 9.3 Beta-Hydroxybutyric Acd 1.55 12/28/19 12/28/19 12/28/19 11:26 11:27 16:31 Sodium Potassium Chloride Carbon Dioxide Anion Gap BUN Creatinine Est Cr Clr Drug Dosing Est GFR ( Amer) Est GFR (Non-Af Amer) BUN/Creatinine Ratio Glucose POC Glucose 327 H* 331 H* 232 H Calcium Beta-Hydroxybutyric Acd
[2019-12-28] MEDS: DONEPEZIL HCL 10 MG TAB PO SCH (20:28)
[2019-12-28] MEDS: ROSUVASTATIN CALCIUM 20 MG TAB PO SCH (20:28)
[2019-12-28] MEDS: ASPIRIN 81 MG ECTAB PO SCH (20:29)
[2019-12-28] MEDS: ISOSORBIDE MONO EXTENDED REL 30 MG TABCR PO SCH (20:30)
[2019-12-29] MEDS ORDERED: INSULIN ASPART 100 UNITS/ML 3 ML PEN SC SCH
[2019-12-29] MEDS: INSULIN ASPART 100 UNITS/ML 3 ML PEN SC SCH ×4 (00:16→12:14)
[2019-12-29] MEDS: LEVOTHYROXINE SODIUM 112 MCG TABLET PO SCH (05:53)
[2019-12-29] MEDS ORDERED: PHARMACY GLYCEMIC MGMT CONSULT PRN (08:00)
[2019-12-29] MEDS: CHOLECALCIFEROL 1,000 UNITS 25 MCG TAB PO SCH (08:01)
[2019-12-29] MEDS: CYANOCOBALAMIN 500 MCG TABLET (VITAMIN B-12) PO SCH (08:01)
[2019-12-29] MEDS: PRIMIDONE 50 MG TAB PO SCH (08:02)
[2019-12-29] MEDS: CALCITRIOL 0.25 MCG CAPSULE PO SCH (08:02)
[2019-12-29] MEDS: TORSEMIDE 10 MG TAB PO SCH (08:02)
[2019-12-29] MEDS: HEPARIN SOD 5,000 UNIT/0.5 ML VIAL SQ SCH (08:02)
[2019-12-29] MEDS: METOPROLOL SUCC 25MG EXT REL TAB PO SCH (08:02)
[2019-12-29] MEDS: INSULIN GLARGINE SOLOSTAR 100 UNITS/ML 3 ML PEN SC SCH (08:04)
--- NOTE | 2019-12-29 10:49 | Cardiology Progress Note ---
Date of Service December 29, 2019 Assessment & Plan (1) COR (chronic cor pulmonale): Very severe pulmonary hypertension, O2 and CPAP dependent. (2) Anasarca: (3) CKD (chronic kidney disease) stage 3, GFR 30-59 ml/min: (4) Right heart failure due to pulmonary hypertension: (5) Biventricular congestive heart failure: (6) Acute exacerbation of CHF (congestive heart failure): Patient is an 84-year-old male with underlying history of severe pulmonary hypertension and cor pulmonale with acute on chronic biventricular heart failure presents, presenting with gradual decompensation over the past several months, weight up greater than 30 pounds from last outpatient measurement in August 2019. Patient presented with gradually progressive edema bilaterallly, extending into the scrotum and lower abdomen. He denies any acute ischemic symptoms. Has been compliant per patient with medications and oxygen at home. Stable right heart failure signs and symptoms. Oral Torsemide initiated in the evening of 12/27/2019. OK for discharge today. Close cardiology follow-up being arranged in [place] Notes: Furosemide 60 AM/40 PM changed to Torsemide 40 AM/20 PM. This may need to be increased as an outpatient. Imdur decreased from 60 mg/day to 30 mg/day Metoprolol succinated changed from 25 mg QHS to 12.5 mg twice a day. Lisinopril 5 mg/day discontinued Continue ASA 81 mg/day and rosuvastatin 20 mg at bedtime Supervising Physician Co-Signing Physician Notes Patient seen and examined chart and medications reviewed. Agree with above assessment plan as well outlined above Subjective Patient seen and examined. Chart and medications reviewed. Off telemetry. Feels the same as yesterday. Anxious to return home. Declined inpatient rehabilitation. Review of Systems Review of Systems: All systems reviewed & are unremarkable except as noted in HPI & below Physical Exam Physical Exam: General: A&Ox3. NAD. LOWER ELWHA. Mouth: Poor dentition. HEENT: Normocephalic. Atraumatic. PER. Conjunctiva pink, sclera clear. Neck: No carotid bruits. +JVD. Heart: Irregular. + Gallop. Soft systolic murmur. No diastolic murmur. No rub. Lungs: Diminished throughout however clear to auscultation. Abdomen: +BS. Distended. Less firm. Less penile/scrotal edema Extremities: Mild right greater than left lower extremity peripheral edema. Dressing on the right peck. Mild erythema. Stasis changes. No overt cellulitis. No clubbing. No cyanosis. Limited neurological examination: Left greater than right upper extremity tremor Results & Data Vital Signs (Past 12 Hours) Vital Signs Temp Pulse Pulse Resp BP BP Pulse Ox 12/29/19 07:40 36.4 C L 78 18 132/73 100 12/29/19 02:52 61 18 92 12/28/19 23:37 69 16 95 12/28/19 22:52 36.3 C L 85 16 129/77 92 Laboratory Results Laboratory Results - last 24 hr 12/28/19 12/28/19 12/28/19 09:50 11:26 11:27 POC Glucose 327 H* 331 H* Beta-Hydroxybutyric Acd 1.55 12/28/19 12/28/19 12/28/19 16:31 20:15 20:18 POC Glucose 232 H 342 H* 190 H Beta-Hydroxybutyric Acd 12/28/19 12/29/19 12/29/19 20:26 00:03 04:01 POC Glucose 199 H 217 H 128 H Beta-Hydroxybutyric Acd 12/29/19 07:49 POC Glucose 199 H Beta-Hydroxybutyric Acd
--- NOTE | 2019-12-29 20:45 | Discharge Summary ---
Date of Service December 29, 2019 Admission HPI Per Admitting Provider CHIEF COMPLAINT: Shortness of breath and weight gain. HISTORY OF PRESENT ILLNESS: This is an 84-year-old male with past medical history significant for type 2 diabetes, COPD, history of pneumonia, history of hypertension, history of PA, history of chronic kidney disease, history of right heart failure, history of severe pulmonary hypertension, cor pulmonale, history of hypoxemia and sleep apnea treated with supplemental oxygen 3 liters all the time and CPAP at bedtime, history of ischemic cardiomyopathy with EF of 45% to 49%, history of coronary artery disease, history of asymptomatic SVT and nonsustained ventricular tachycardia, history of right bundle branch block, history of dementia. Currently the patient lives at home alone. He says his in July. His stepdaughter lives close by. He can ambulate without any support, but lately he is getting more short of breath. Going to the kitchen makes him short of breath and he is taking Lasix now 2 times daily, but he says he is not micturating much. He gained about 14 pounds in the last 5 days. He gets home health nurse once a week. He has a small superficial ulcer on the left lower extremity which was dressed by his nurse. Currently resting comfortably and hemodynamically stable. Denies any other complaints. Denies any chest pain. No cough, no fever, no chills, no sore throat. He says when he wakes up, when he takes off his CPAP machine, he has some runny nose for some time and then it stops. No earache, no headache, no dizziness, no blurred visions, double visions. No nausea, no abdominal pain. Normal bowel and bladder movements. Appetite, he says is okay. He says he does not eat excess salt. Admission Exam Per Admitting Provider GENERAL: The patient is of moderate build, not in acute distress. VITAL SIGNS: Temperature 37.1, pulse 73, respiratory rate 21, blood pressure 108/66, oxygen 97% on 4 liters. HEENT: No pallor, no icterus. Pupils equal, round, and reactive to light. NECK: No JVD, no neck masses. CARDIOVASCULAR: S1, S2 heard, regular rate and rhythm, no murmur, no gallop. RESPIRATORY SYSTEM: Normal AP diameter. No accessory muscle use. No wheezing. Mild bibasilar crackles. ABDOMEN: Soft, bowel sounds present, nontender. No distention. CENTRAL NERVOUS SYSTEM: Cranial nerves II-XII grossly intact. Nonfocal. EXTREMITIES: Bilateral lower extremity erythema and chronic swelling and chronic skin changes seen. Principal Diagnosis Acute CHF Exacerbation Discharge Exam General- oriented x 3, not in distress, speaks in sentences with no effort or accessory muscle use Eyes- anicteric Neck- no JVD Lungs- clear breath sounds, no crackles, no wheezing, bilaterally Heart- normal rate, regular rhythm; no murmurs Abdomen- normal bowel sounds, nondistended, soft, nontender Extremities-mild lower leg edema with very dry skin, erythema on the right lower extremity improving, wound healing well Neuro- alert, oriented x 3; no gross focal neurologic deficits Skin- warm & dry Discharge Data Allergies Allergy/AdvReac Type Severity Reaction Status Date / Time yellow dye Allergy Unknown RASH Verified 12/20/19 19:48 Consultations 12/20/19 19:33 ED Decision to Admit Stat 12/20/19 22:45 Consult Case Management - Discharge Planning Routine 12/21/19 08:00 Consult Cardiology Routine 12/22/19 17:22 Consult Vascular Surgery Routine Ordered Studies 12/20/19 20:22 CT chest wo con Urgent COMPARISON: Chest radiograph of same day FINDINGS: Unremarkable thyroid. No adenopathy. Moderate cardiomegaly. Coronary artery calcifications. Extensive calcified plaque of the thoracic aorta and great vessels. Dilation of the pulmonary artery suggests pulmonary artery hypertension. Respiratory motion artifact limits the study. Trace left and moderate right pleural effusions. No pneumothorax. Pulmonary vascular congestion without overt pulmonary edema. Numerous noncalcified pulmonary nodules are present, most pronounced within the bilateral upper lobes measuring up to a pproximately 4 mm. Fissural nodule the right lung base measures 7 mm. Calcified granuloma of the medial right upper lobe. Consolidation and groundglass opacity dependent right lower lobe. Right diaphragmatic pleural calcifications. Central airways are patent. Small volume of abdominal ascites with mesenteric edema. Moderate diffuse body wall edema. Degenerative changes of the shoulders and spine. Previously questioned nodular opacity of the left upper lung likely correlates with overlying ribs. Demineralized appearance of the bones. 8 mm lucent focus involves the T5 vertebral body. 10 mm lucent focus involves the T2 vertebral body. Ill-defined lucent lesion involves the anterior cortex of the left anterior fifth rib. Additional smaller lucent foci are seen involving multiple vertebral bodies. IMPRESSION: 1. Cardiomegaly with pulmonary vascular congestion. 2. Fluid overload manifested by trace left and moderate right pleural effusions with small volume of abdominal ascites and anasarca. 3. Right lower lobe basilar consolidation suggests probable atelectasis. Pneumonia could appear similarly. 4. Numerous bilateral solid pulmonary nodules measure up to 4 mm. Follow-up guidelines provided below. 5. Prior granulomatous disease. 6. There are several ill-defined lucent lesions involving the vertebral bodies with an additional lucent lesion noted involving the anterior left fifth rib. Correlation with skeletal survey radiographs recommended to evaluate for additional lesions. Primary differential considerations would include multiple lipoma versus lytic metastasis from unknown primary. Please refer to below summary of Fleischner criteria recommendations for follow- up of incidental CT nodules (Henrique Luevano, Guidelines for management of small pulmonary nodules detected on CT scans: A statement from the Fleischner Society, Radiology 237: [phone].) SOLID NODULES Multiple nodules size: <6 mm * Low risk patients: no routine follow-up * high risk patients: optional CT at 12 months Note: newly detected indeterminate nodule in persons 35 years of age or older. * Low risk patients: minimal or absent history of smoking and/or other known risk factors * high risk patients: history of smoking or of other known risk factors (e.g. first degree relative with lung cancer, or exposure to asbestos, radon, uranium) * if a nodule up to 8 mm is partly solid or is ground glass further follow-up is required after 24 months to exclude possible slow growing adenocarcinoma ([place]) US venous doppler LE BI Urgent IMPRESSION: No DVT within the right or left lower extremity. Bone Osseous Survey FINDINGS: Survey evaluation of the axial and pedicular skeleton fails to show significant number of lytic lesions. There are degenerative changes of the thoracic as well as lumbar spine. There are findings of mild osteoporotic compression deformity superior endplate of L3 and L4. Potential lytic changes involving the inferior aspect of T12. Considerable degenerative change of all visualized bony structures. IMPRESSION: Complete bone survey fails to demonstrate any significant additional lytic changes. Mild compression deformity superior endplate of L3 and L4 considered osteoporotic. 12/21/19 11:00 US scrotum/testicle Routine 1. Normal testis. 2. Normal vascular flow to both testicles. 3. Extensive bilateral scrotal wall edema 4. No evidence for drainable abscess or collection at this time 12/22/19 14:00 US arterial duplex LE RT Routine COMPARISON STUDY: No priors TECHNIQUE: Real-time, grayscale, and color Doppler sonography of the arteries of the right lower extremity is performed from the inguinal crease to the foot. Ankle brachial indices could not be assessed due to right lower extremity wounds and bandaging material. FINDINGS: Atherosclerotic plaque and irregularity is seen throughout the arteries of the right lower extremity. There are triphasic arterial waveforms in the common femoral artery with velocities measuring up to 45 cm/s. The profundus femoris artery is patent with velocities measuring up to 76 cm/s. There are naina nted waveforms in the superficial femoral artery. Velocities in the proximal superficial femoral artery measure up to 29 cm/s. There is a long segment of complete thrombosis identified in the mid to distal portions of the superficial femoral artery. There is reconstitution of the distal superficial femoral artery with velocities measuring up to 171 cm/s.There is occlusion of the proximal popliteal artery with reconstitution distally. Velocities in the distal popliteal artery measure up to 21 cm/s with blunted arterial waveforms. Blunted waveforms are seen throughout the calf arteries. 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 The proximal and mid portions of the posterior tibial artery patent with velocities measuring up to 24 cm/s. The distal posterior tibial artery is not visualized due to overlying bandage material. The anterior tibial artery is patent with velocities measuring up to 21 cm second. The dorsalis pedis artery is patent with velocities measuring up to 15 cm/s. IMPRESSION: 1. There are segments of complete thrombosis seen within the mid to distal superficial femoral artery and the popliteal artery. 2. 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 3. Ankle-brachial indices could not be evaluated. Hospital Course (1) Acute exacerbation of CHF (congestive heart failure): 84-year-old male with history of chronic congestive heart failure with cor pulmonale, diabetes, hypertension, CKD stage III, chronic hypoxic respiratory failure, COPD And other problems noted below presenting with CHF exacerbation. Acute congestive heart failure (Biventricular congestive heart failure with chronic cor pulmonale) History of Coronary artery disease status post stent -- per Dr. Tony Prieto, previous hospitalist notes: patient presented with increased oxygen requirements at home,bilateral lower extremity edema and scrotal swelling, elevated BNP CT chest: Cardiomegaly with pulmonary vascular congestion. Fluid overload manifested by trace left and moderate right pleural effusions with small volume of abdominal ascites and anasarca -- Service Attendant consulted, patient given IV Lasix --Patient improved with diuresis Lasix IV changed to Torsemide p.o. twice a day Discharge to home with torsemide 40 mg in AM / 20 mg at PM Home health services arranged Follow-up closely with cardiology clinic Scrotal swelling, penis swelling (anasarca) per Dr. Tony Prieto's notes: --scrotal ultrasound: Normal testis. Normal vascular flow to both testicles. Extensive bilateral scrotal wall edema. No evidence for drainable abscess or collection at this time --improving as well Acute kidney injury on chronic kidney disease stage III --Baseline creatinine around 1.8 to 2, admission creatinine of 2.38. -- crea now stable at 1.8 Monitor creatinine as an outpatient Bilateral lower extremity edema with Erythema -- perhaps from weeping drainage previously? or chronic skin changes -- Lower Extremity US: no DVT -- completed 7 days of IV Ceftriaxone course -- Leg erythema improving Peripheral Artery Disease Atherosclerosis of tangirnaq artery of lower extremity with ulceration of foot -- RLE arterial US: 1. There are segments of complete thrombosis seen within the mid to distal superficial femoral artery and the popliteal artery. 2. 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 3. Ankle-brachial indices could not be evaluated. -- Vascular surgery service consulted, Dr. Maldonado: "At this time due to his medical condition, would treat the ulcer of his right foot conservatively. 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 Would only intervene if the ulcer worsens and amputation is needed." -- Leg erythema improving Continue to monitor as an outpatient, follow-up with vascular surgery Hypertension per Dr. Tony Prieto's notes: -- Imdur and metoprolol lowered Monitor blood pressure as an outpatient History of chronic obstructive pulmonary disease and chronic respiratory failure, on oxygen -supplementary oxygen is at baseline currently which is 3 to 4 L by nasal cannula Obstructive sleep apnea -on CPAP Pulmonary nodules -- CT chest: Numerous bilateral solid pulmonary nodules measure up to 4 mm, Prior granulomatous disease. (please refer to full report in the Ordered Studies) -- further work up and management as outpatient Lytic Lesions in the Vertebrae and Left 5th rib -- Ct Chest:There are several ill-defined lucent lesions involving the vertebral bodies with an additional lucent lesion noted involving the anterior left fifth rib. Correlation with skeletal survey radiographs recommended to evaluate for additional lesions. Primary differential considerations would include multiple lipoma versus lytic metastasis from unknown primary. (please refer to full report in the Ordered Studies) -- Skeletal Survey: Survey evaluation of the axial and pedicular skeleton fails to show significant number of lytic lesions. There are degenerative changes of the thoracic as well as lumbar spine. There are findings of mild osteoporotic compression deformity superior endplate of L3 and L4. Potential lytic changes involving the inferior aspect of T12. Considerable degenerative change of all visualized bony structures. IMPRESSION: Complete bone survey fails to demonstrate any significant additional lytic changes. Mild compression deformity superior endplate of L3 and L4 considered osteoporotic. -- further work up and management as outpatient Hypocalcemia, Osteoporosis - stopping calcium supplements on 12/26/2019 as calcium improved Thrombocytopenia, mild -- stable around 90K monitor as outpatie t Type 2 diabetes mellitus with terminal supervisor current use of insulin - continue home regimen Hypothyroidism -Continue Synthroid. Disposition: Discharged to home with home health services Follow-up with PCP this week Follow-up with style advisor in 2 weeks Total Time Total Time Spent Total Time Spent (In Minutes): > 30 minutes Discharge Plan Discharge Items Patient Disposition: Home - Home Health Services Reason For Visit: SOB Discharge Diagnosis: acute congestive heart failure (Biventricular congestive heart failure with chronic cor pulmonale) Scrotal swelling, penis swelling (anasarca) Peripheral Artery Disease Acute kidney injury on chronic kidney disease stage III Hypocalcemia, Osteoporosis Pulmonary nodules Obstructive sleep apnea Type 2 diabetes mellitus with fci current use of insulin Activity: Resume your previous activity Activity Comment: Gradually as tolerated, no heavy exertion, continue PT/OT Non-emergency contact: Primary Care Provider Call non-emergency contact if: you have any medication questions, your symptoms worsen, your pain is not controlled, your pain is worsening, your pain is unusual for you, your pain is concerning for you, you have a fever, your wound has increased redness, your wound has increased drainage and your wound pain has increased Follow-up/Referrals: Franky Bradley [Primary Care Provider] - Ronald Carballo MD [Physician] - Diet: Carb Consistent or DM2, Heart Healthy and Low Sodium (2gm) Addtl Attending Provider Instructions: Please review your new medication list and follow instructions carefully. Medication changes include: Lasix being changed to torsemide Imdur and metoprolol doses been decreased Lisinopril discontinued Follow up with Family Dr. Bradley in 1 week. Follow-up with Floyd style advisor in 2 weeks. Addtl Medical Device Assembler Provider Instructions: Call 911 and go to the Emergency Room if: * You have tightness or pain in your chest that does not go away with rest or Nitroglycerin * You are very short of breath even with rest Call your doctor if any of the following symptoms or problems start or get worse: * Shortness of breath or difficulty breathing * Wake up at night short of breath * Chest pain * Cough * Swelling of your hands, fee, or legs * More fatigued or tired with your normal activity * Palpitations - sudden fast heart beats WEIGHT * Weigh yourself every morning after using the bathroom. * Use the same scale. * Wear the same amount of clothing. * Write your weight down on your chart. * Call your doctor if you gain more than 2-3 pounds in 1-2 days. MEDICATIONS * Use this discharge instruction sheet for instructions. * Take your medications at the time your doctor ordered. * Do not skip a dose of your medicines. * If you miss a dose of medicine, take as soon as possible, but DO NOT DOUBLE A DOSE. * Read your medicine information when you get home. * Know all of the side effects of your medicine. * Call your doctor's office if you have any side effects. * Be sure all of your doctors know what medicine and herbs you take (including cold, flu, and herbal medicine). * Pain Medicine: If you do not get relief from your pain, please call your doctor for help. Take the following with you to your follow-up doctor appointments: * Weight Chart * Medication List * List of questions Do not drink excessive alcohol, beer or wine. Pending Studies at Discharge: No Stand-Alone Forms: My [employer], Smoking Cessation Medications and DC Order Prescriptions: New isosorbide mononitrate 30 mg Tablet Extended Release 24 Hr 30 mg PO QPM Qty: 30 RF: 2 metoprolol succinate 25 mg Tablet Extended Release 24 Hr 12.5 mg PO BID Qty: 30 RF: 2 torsemide 20 mg tablet 20 mg PO UD Qty: 90 RF: 2 Continued primidone 50 mg tablet 50 mg PO BID RF: 0 donepezil 10 mg tablet 10 mg PO HS RF: 0 aspirin 81 mg Tablet,Delayed Release (Dr/Ec) 81 mg PO QPM RF: 0 calcitriol 0.5 mcg capsule 0.5 mcg PO QAM RF: 0 levothyroxine 112 mcg tablet See Rx Instructions .ROUTE .COMPLEX RF: 0 rosuvastatin 20 mg tablet 20 mg PO HS RF: 0 cyanocobalamin (vitamin B-12) [Vitamin B-12] 1,000 mcg Tablet 1,000 mcg PO QAM RF: 0 cholecalciferol (vitamin D3) [Vitamin D3] 25 mcg (1,000 unit) Capsule 25 mcg PO QAM RF: 0 omega-3 fatty acids-fish oil [Fish Oil] 360-1,200 mg Capsule 1 cap PO QAM RF: 0 calcium carbonate-vitamin D3 [Calcium 600 with Vitamin D3] 600 mg(1,500mg) - 500 unit Capsule 2 cap PO QAM RF: 0 Arslan Mag Zinc Plus D3 333 mg-133 unit -133 mg-5 mg Tablet 1 tab PO QAM RF: 0 Lantus U-100 Insulin 100 unit/mL solution 8 unit SUBCUT HS RF: 0 insulin aspart U-100 [Novolog U-100 Insulin aspart] 100 unit/mL solution See Rx Instructions .ROUTE .COMPLEX RF: 0 Discontinued furosemide 40 mg tablet 40 mg PO BID RF: 0 isosorbide mononitrate 60 mg tablet extended release 24 hr 60 mg PO QPM RF: 0 lisinopril 5 mg tablet 5 mg PO QPM RF: 0 metoprolol succinate 25 mg tablet extended release 24 hr 25 mg PO HS RF: 0 Discharge Orders: Discharge Order (Routine); Ordered 12/29/19 Ordered By: Israel Lnag/Other Patient Handouts: Diabetes and Heart Disease, Healthy Meals for Diabetes, Diabetes: The Benefits of Exercise, Managing Diabetes: The A1C Test Admission Data Admit Date/Time: 12/20/19 20:22 Attending Provider: Israel Carrera Admit Provider: Dewayne Payne Primary Care Provider: Franky Bradley Other Providers: Tony Prieto ; Dewayne Payne ; Skip Treviño ; Semaj Frost ; Ronald Carballo ; Dennis Diallo ; Colt Carrington ; Javier Mittal ; Juanita Oropeza ; Xiomara Conrad ; Yoandy Pineda ; Mohan Maldonado Other Interventions: Discharge Summary Assessment (RN) Last Done: 12/29/19 14:44 DC Date/Time DO NOT enter until pt leaves facility: 12/29/19 16:13
--- NOTE | 2019-12-29 20:45 | Hospitalist Progress Note ---
Date of Service December 29, 2019 Assessment & Plan (1) Acute exacerbation of CHF (congestive heart failure): 84-year-old male with history of chronic congestive heart failure with cor pulmonale, diabetes, hypertension, CKD stage III, chronic hypoxic respiratory failure, COPD And other problems noted below presenting with CHF exacerbation. Acute congestive heart failure (Biventricular congestive heart failure with chronic cor pulmonale) Coronary artery disease status post stent --Patient improved with diuresis Lasix IV changed to Torsemide p.o. twice a day Discharge to home with torsemide 40 mg / 20 mg Home health services arranged Follow-up closely with cardiology clinic Scrotal swelling, penis swelling (anasarca) per Dr. Tony Prieto's notes: -scrotal ultrasound: Normal testis. Normal vascular flow to both testicles. Extensive bilateral scrotal wall edema. No evidence for drainable abscess or collection at this time -improving as well Acute kidney injury on chronic kidney disease stage III -Baseline creatinine around 1.8 to 2, admission creatinine of 2.38. - crea now stable at 1.8 Monitor creatinine as an outpatient Bilateral lower extremity edema with redness perhaps from weeping drainage previously? or chronic skin changes PERIPHERAL ARTERIAL DISEASE (Atherosclerosis of augustine artery of lower extremity with ulceration of foot) - vascular surgery service "At this time due to his medical condition, would treat the ulcer of his right foot conservatively. 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 Would only intervene if the ulcer worsens and amputation is needed." -Completed 7 days of ceftriaxone IV -Leg erythema improving Continue to monitor as an outpatient, follow-up with vascular surgery Hypertension per Dr. Tony Prieto's notes: - metoprolol as 12.5 mg BID -as per cardiology 12/23/2019: No current anginal symptoms will reduce isosorbide mononitrate to 30 mg/day to allow slightly higher blood pressure/diuresis - BP improving Imdur and metoprolol lowered Monitor blood pressure as an outpatient History of chronic obstructive pulmonary disease and chronic respiratory failure, on oxygen -supplementary oxygen is at baseline currently which is 3 to 4 L by nasal cannula Obstructive sleep apnea -on CPAP Pulmonary nodules -CT chest: Numerous bilateral solid pulmonary nodules measure up to 4 mm, Prior granulomatous disease. Hypocalcemia, Osteoporosis - stopping calcium supplements on 12/26/2019 as calcium improved Thrombocytopenia, mild -stable around 90K Type 2 diabetes mellitus with meterman current use of insulin - continue home Lantus, on insulin sliding scale,HbA1c levels 8.5 - BSG is elevated, pharmacy glycemic control consulted Hypothyroidism -Continue Synthroid. Deep venous thrombosis prophylaxis: heparin subcutaneous Disposition: Charged home with home health services Follow-up with PCP this week Follow-up with casting and pasting supervisor in 2 weeks Admission and Anticipated Discharge Date Admission Date: December 20, 2019 Subjective Follow-up for CHF exacerbation Seen resting in bedside chair, comfortable, in good spirits States he continues to feel fine overall Denies shortness of breath, chest pain, palpitations, dizziness Denies any leg pain, fevers or chills States he is ready like to be discharged today No other symptoms Review of Systems Review of Systems: All systems reviewed & are unremarkable except as noted in HPI & below Physical Exam Physical Exam: General- oriented x 3, not in distress, speaks in sentences with no effort or accessory muscle use Eyes- anicteric Neck- no JVD Lungs- clear breath sounds, no crackles, no wheezing, bilaterally Heart- normal rate, regular rhythm; no murmurs Abdomen- normal bowel sounds, nondistended, soft, nontender Extremities-mild lower leg edema with very dry skin, erythema on the right lower extremity improving, wound healing well Neuro- alert, oriented x 3; no gross focal neurologic deficits Skin- warm & dry Results & Data Results & Data ([facility]) Vital Signs (Past 12 Hours) Vital Signs Temp Pulse Resp BP BP Pulse Ox 12/29/19 14:44 36.7 C 84 20 127/72 129/77 98 12/29/19 11:59 36.7 C 84 20 127/72 98 Laboratory Results Laboratory Results - last 24 hr 12/29/19 12/29/19 12/29/19 00:03 04:01 07:49 POC Glucose 217 H 128 H 199 H 12/29/19 11:45 POC Glucose 206 H
== END 2019-12-29 16:13 | disposition home health service (06) | DRG 291 ==
LOC: ED 17:18 → 2S 20:22 → SUATTDRO 20:22 → 2S 21:37 → 2W 12-28 16:39